=== PATIENT | female | born 1990 ===

== ENCOUNTER 2020-07-02 18:45 | Outpatient (REF) | payer OTHER, SELFPAY ==
[2020-07-02 18:53] LABS: Glucose Urine UA NEG (NEG); Leukocyte Esterase Urine NEG (NEG); Nitrite Urine NEG (NEG); PH 5.5 (5.0-8.0); Specific Gravity - Urine <= 1.005 (1.005-1.025); Urine Blood 1+ (NEG); Urine Ketones NEG (NEG); Urine Protein NEG (NEG-TRACE)
[2020-07-02 18:57] LABS: Appearance Urine CLEAR; Color Urine YELLOW
[2020-07-02 19:08] LABS: Squamous Epithelial Cell Urine TRACE /LPF; WBC Urine 0-2 /HPF (0-4)
== END 2020-07-02 18:46 | disposition home or self-care (01) ==
LOC: HO.LNP 18:45
PROVIDERS: Visit Provider Internal Medicine
DX: R30.0 Dysuria (principal)
CPT/HCPCS: 81001

== ENCOUNTER 2021-05-31 15:00 | Outpatient (RCR) | payer OTHER, SELFPAY ==
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
--- NOTE | 2021-06-21 14:47 | MHC.PT.DC ---
[facility] [place] Office [place] Office [place] Office [address] Judah Garcia [address] [phone] F: [phone] F: [phone] F: [phone] F: [phone] Physical Therapy Discharge Report Diagnosis: L shoulder, knee and hip. Date of Surgery: Date of Evaluation: 04/23/21 Date of Discharge: 06/21/21 Treatments to Date: 6 Cancellations to Date: No Shows to Date: Discharge Status: Achieved Goals Improved Function Independent with HEP Discharge Summary: Patient called and self DC'd, feeling well and ready for DC. Pt denied any more pain. She had no pain at the last tx session prior to session or at the end. Able to complete some progressed scap stab exercises with no increase in discomfort. Pt has met goals, has HEP and is ready for DC. Electronically signed by: Brielle Woo PT Please sign and return to therapist. Thank you for your referral.
== END 2021-06-21 14:47 | disposition home or self-care (01) ==
LOC: HO.PTCHIC 15:00
PROVIDERS: PCP Internal Medicine; Visit Provider Nurse Practitioner Family
DX: M25.562 Pain in left knee (principal); M25.552 Pain in left hip; M25.551 Pain in right hip
CPT/HCPCS: 97110; 97161

== ENCOUNTER 2021-06-13 11:55 | Outpatient (REF) | payer OTHER, SELFPAY ==
[2021-06-13 13:16] LABS: Leukocytes Stool Qualitative NEGATIVE (NEGATIVE)
== END 2021-06-13 11:56 | disposition home or self-care (01) ==
LOC: HO.LNP 11:55
PROVIDERS: Visit Provider Internal Medicine
DX: R19.7 Diarrhea, unspecified (principal)
CPT/HCPCS: 87045; 87046; 87329; 87338; 89055

== ENCOUNTER 2022-02-08 08:44 | Outpatient (REF) | payer OTHER, SELFPAY ==
[2022-02-08 08:58] LABS: MANUAL DIFF FLAG NO
[2022-02-08 09:15] LABS: Basophils Percent Auto 0.4 % (0-2); Eosinophils Absolute Auto 0.1 X10*3/uL (0.0-0.4); Eosinophils Percent Auto 0.7 % (0-4); Hematocrit 40.9 % (37.0-47.0); Hemoglobin 12.8 g/dl (12.0-16.0); Imm Gran Abs Auto 0.01 X10*3/uL (0.00-0.03); Imm Gran Pct Auto 0.1 % (0.0-0.4); Lymphocytes Absolute Auto 1.8 X10*3/uL (1.2-4.9); Lymphocytes Percent Auto 26.1 % (20-40); Mean Corpuscular HGB Conc 31.3 g/dl (31.0-35.0); Mean Corpuscular Volume 73.4 fL (80.0-98.0); Mean Platelet Volume 9.3 fL (9.4-12.3); Monocytes Absolute Auto 0.4 X10*3/uL (0.1-1.2); Monocytes Percent Auto 5.7 % (2-11); Neutrophils Absolute Auto 4.6 x10*3/uL (2.0-8.3); Platelet Count 435 X10*3/uL (160-400); Red Blood Count 5.57 X10*6/uL (4.20-5.50); White Blood Count 6.9 X10*3/uL (4.8-10.8)
[2022-02-08 09:44] LABS: Alanine Aminotransferase 7 U/L (0-31); Albumin Level 3.8 g/dL (3.5-5.0); Alkaline Phosphatase 63 U/L (39-117); Anion Gap 14 (12-20); Aspartate Amino Transferase 10 U/L (5-31); Bilirubin Total 0.3 mg/dL (0.0-1.0); Blood Urea Nitrogen 7 mg/dL (9-16); Calcium 9.1 mg/dL (8.4-10.2); Carbon Dioxide 26 mmol/L (22-29); Chloride 103 mmol/L (96-108); Cholesterol 218 mg/dL; Estimated Glomerular Filt Rate > 60; Glucose Fasting 95 mg/dL (60-99); HDL Cholesterol 57 mg/dL; LDL Cholesterol Calculated 129 mg/dl; Potassium 4.5 mmol/L (3.3-5.1); Sodium 138 mmol/L (135-145); Total Protein 6.9 g/dL (6.5-8.0); Triglycerides 162 mg/dL
[2022-02-08 10:08] LABS: Vitamin D 25-OH Total 21.8 ng/mL (>30)
== END 2022-02-08 08:45 | disposition home or self-care (01) ==
LOC: HO.LAB 08:44
PROVIDERS: PCP Internal Medicine; Visit Provider Internal Medicine
DX: Z00.00 Encounter for general adult medical examination without abnormal findings (principal); E55.9 Vitamin D deficiency, unspecified; E66.01 Morbid (severe) obesity due to excess calories; D64.9 Anemia, unspecified
CPT/HCPCS: 36415; 80053; 80061; 82306; 84443; 85025

== ENCOUNTER 2023-02-09 16:03 | Outpatient (AMB) | payer OTHER, SELFPAY ==
[2023-02-09 16:05] VITALS: BP 156/100; BMI 43.4
--- NOTE | 2023-02-09 16:05 | A.OFFPC_ITS ---
Vital Signs 02/09/23 16:05 02/09/23 16:18 Height 5 ft Weight 222 lb BMI 43.4 BP 156/100 H 150/100 H Blood Pressure Location Lt brachial Lt brachial Position Sitting Sitting Intake Visit Reasons: annual exam Intake Note: Patient here for an annual physical exam Deployment Engineer Required: No Accompanied by: Self / Same As Patient Allergies shrimp Allergy (Intermediate, Uncoded 02/09/23 16:19) itch, throat closing Medication List - Last Reconciled 02/09/23 by Coni Griffiths MD sertraline 25 mg PO DAILY 90 days Tobacco use date assessed: 02/09/23 Dental Screening Dental Screen Date: 02/09/23 Did you have a dental visit in the last 12 months?: Yes Did you have a dental problem in the last 6 months where you did not have access to dental care?: No Was dental information given to patient?: Patient has dentist HPI HPI Comments History of Present Illness Details This is a 32-year-old female that comes for her physical exam. Last Pap smear was 2021 was negative. She is 10 weeks . Blood pressure elevated that will be recheck in 3 weeks. Will see OBGYN tomorrow to check blood pressure. [facility] Medical History (Updated 02/04/22 @ 15:29 by Coni Griffiths MD) Acute diarrhea Depression Dysuria Morbid obesity Surgical History H/O laparoscopy Hx of breast reduction, elective Family History Mother Fibromyalgia Pure hypercholesterolemia Father Substance use disorder Mental health disorder Social History Housing: House Alcohol intake: current Alcohol intake frequency: holidays/special occasions only Alcohol type: wine Patient Tobacco Use Status: Never used Tobacco e-Cigarette/Vaping Use: Never Used Second Hand Smoke Exposure: No service: No Current occupational status: unemployed Current occupation: [employer] Cognitive needs: No Hearing needs: No Vision needs: No Questionnaire PHQ-9 Over the last 2 weeks, how often have you been bothered by any of the following problems? 1. Little interest or pleasure in doing things: more than half the days 2. Feeling down, depressed, or hopeless: more than half the days 3. Trouble falling or staying asleep, or sleeping too much: not at all 4. Feeling tired or having little energy: nearly every day 5. Poor appetite or overeating: not at all 6. Feeling bad about yourself - or that you are a failure or have let yourself or your family down: more than half the days 7. Trouble concentrating on things, such as reading the newspaper or watching television: not at all 8. Moving or speaking so slowly that other people could have noticed. Or the opposite - being so fidgety or restless that you have been moving around a lot more than usual: not at all 9. Thoughts that you would be better off or of hurting yourself in some way: not at all Total score: 9 Depression Screening Interpretation: Positive Depression Screening Follow-up: Existing condition 05859 - PHQ-9 Billing: Yes Source: Developed by Drs. Nguyễn Garcia, Tesha Cedillo, Jamal Sotelo and colleagues, with an educational timothy from [employer]. Thrive Questionnaire Date Thrive assessed: 02/04/22 AUDIT C Alcohol Use Questionnaire (AUDIT-C) 1. How often do you have a drink containing alcohol?: Never Total Score: 0 AGUEDA-7 AMB Questionnaire AGUEDA-7 Date AGUEDA - 7 assessed: 02/09/23 Feeling nervous, anxious, or on edge: 1 = Several days Not being able to stop or control worryin = Several days Worrying too much about different things: 2 = More than half the days Trouble relaxin = Nearly every day Being so restless that it is hard to sit still: 0 = Not at all Becoming easily annoyed or irritable: 2 = More than half the days Feeling afraid as if something awful might happen: 0 = Not at all Total AGUEDA-7 score (0-4 normal; 5-9 mild; 10-14 moderate; 15-21 severe): 9 Source: Developed by Drs. Nguyễn Garcia, Tesha Cedillo, Jamal Sotelo and colleagues, with an educational timothy from [employer]. AGUEDA-7 Assessment Billing AGUEDA-7 Assessment Tool: AGUEDA-7 Assessment 66580 Review of Systems Const All systems reviewed & are unremarkable except as noted in HPI and below Eyes Reports no additional complaints, Denies change in vision and Denies other visual disturbances Card Denies chest pain at rest, Denies chest pain with activity, Denies edema, Denies irregular heart rhythm, Denies claudication, Denies dyspnea, Denies dyspnea on exertion, Denies orthopnea, Denies paroxysmal nocturnal dyspnea and Denies slow heart rate Resp Denies cough, Denies dyspnea and Denies dyspnea on exertion GI Denies abdominal pain, Denies change in bowel habits, Denies excessive flatus, Denies nausea and Denies vomiting Denies urinary incontinence, Denies urinary hesitancy and Denies urinary urgency Musc Denies abnormal gait, Denies atrophy, Denies deformity and Denies limited range of motion Skin/Breast Denies bleeding lesions, Denies changing lesions and Denies rash Neuro Denies abnormal gait and Denies lack of coordination Physical exam (Primary Care) Vital Signs: Last Vital Signs BP 156/100 H 02/09/23 16:05 BMI result Body Mass Index 43.4 Tobacco/Smoking Status: Tobacco use Status Tobacco use date assessed 02/09/23 02/09/23 16:14 Patient Tobacco Use Status Never used Tobacco 02/09/23 16:14 Tobacco use type 01/24/21 17:27 e-Cigarette/Vaping Use Never Used 02/09/23 16:14 PHQ-9: PHQ-9 Score PHQ-9: Total score 9 02/09/23 16:14 Depression Screening Interpretation: Positive Depression Screening Follow-up: Existing condition Thrive Assessment: Date of Thrive Assessment Date Thrive assessed 02/04/22 02/09/23 16:14 Const Orientation/consciousness: patient oriented x3 [facility] Head: Yes normal to inspection, Yes normocephalic and Yes atraumatic Ears: external ears normal Eyes General: appearance normal, both eyes and all related structures Eyelids: Yes eyelids normal Conjunctivae: conjunctivae normal Neck Neck: Yes normal visual inspection and Yes supple Resp Effort & Inspection: normal respiratory effort Auscultation: clear to auscultation bilaterally Cardio Jugular venous distension: no JVD Rate: regular rate Rhythm: regular rhythm Heart sounds: S1 normal heart sound present and S2 normal heart sound present GI Inspection: Yes normal to inspection Palpation (GI): Soft to palpation and nontender Auscultation: normal bowel sounds Skin General skin exam: no rashes or lesions noted Neuro General: patient oriented x3 and no focal motor deficits Extrem General: Yes full ROM Psych Appearance: grossly normal Assessment and Plan Assessment & Plan (1) Encounter for physical examination: Code(s): Z00.00 - Encounter for general adult medical examination without abnormal findings Plan: Repeat in a year Coding Level of Care Code Est Pt Prev Care 18-39y(87206) Diagnoses Encounter for physical examination Z00.00 Additional Codes AGUEDA-7 Assessment Billing - AGUEDA-7 Assessment Tool: AGUEDA-7 Assessment 87131 ([id number]) Time Spent (min) 31
[2023-02-09 16:18] VITALS: BP 150/100
== END 2023-02-09 16:26 | disposition home or self-care (01) ==
PROVIDERS: PCP Internal Medicine; Visit Provider Internal Medicine
DX: Z00.00 Encounter for general adult medical examination without abnormal findings (principal)
CPT/HCPCS: 99395

== ENCOUNTER 2023-10-05 17:14 | Outpatient (AMB) | payer OTHER, SELFPAY ==
[2023-10-05 17:21] VITALS: BP 160/98; PULSE 76; O2SAT 98; BMI 42.1
--- NOTE | 2023-10-05 17:21 | A.OFFPC_ITS ---
Vital Signs 10/05/23 17:21 Height 5 ft Weight 215 lb 8 oz BMI 42.1 BP 160/98 H Blood Pressure Location Lt brachial Position Sitting Pulse 76 Pulse Source Pulse Oximeter Pulse Oximetry (%) 98 Oxygen Delivery Method Room Air Intake Visit Reasons: Right breast bleeding Intake Note: The patient is here with bleeding and a lump in the right breast for the past tw o days. Additionally, she experienced a term demise. Baby Karine was delivered via [facility] on 08/16/23 and on 08/17/23. 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 Required: No River Rafting Guide: Present (Naima Lim CMA) Accompanied by: Self / Same As Patient Allergies shrimp Allergy (Intermediate, Uncoded 10/05/23 17:39) itch, throat closing Medication List - Last Reconciled 10/05/23 by Coni Griffiths MD nifedipine ER 60 mg PO DAILY sertraline 150 mg PO DAILY Tobacco use date assessed: 10/05/23 Dental Screening Dental Screen Date: 02/09/23 HPI HPI Comments History of Present Illness Details This is a 33-year-old female with mild major depression, hypertension, and morbid obesity that comes today due to right breast lump at 06:00 o'clock that she noted few weeks ago associated with right blood in nipple discharge. She had a code white 08/16/2023 and baby in 08/17/2023. Since then she has had milky discharge but 2 weeks ago she noticed that it was bloody discharge from right breast. Depression has aggravated due to grieving and OBGYN increase sertraline to 150 mg once a day about 2 weeks ago. Her blood pressure is still elevated and nifedipine was decreased 2 weeks ago from 90 mg to 60 mg. Blood pressure still elevated therefore I will increase it back again to 90 mg. Blood pressure will be recheck in 3 weeks by nurse navigator. She is morbidly obese with a BMI of 42.1 and should diet and exercise to reach BMI goal less than 30. [facility] Medical History (Updated 10/05/23 @ 18:24 by Coni Griffiths MD) Acute diarrhea Morbid obesity Dysuria Depression Surgical History Hx of breast reduction, elective H/O laparoscopy Family History Mother Fibromyalgia Pure hypercholesterolemia Father Substance use disorder Mental health disorder Social History Housing: House Alcohol intake: current Alcohol intake frequency: holidays/special occasions only Alcohol type: wine Patient Tobacco Use Status: Never used Tobacco e-Cigarette/Vaping Use: Never Used Second Hand Smoke Exposure: No service: No Current occupational status: unemployed Current occupation: [employer] Cognitive needs: No Hearing needs: No Vision needs: No Questionnaire PHQ-9 Over the last 2 weeks, how often have you been bothered by any of the following problems? 1. Little interest or pleasure in doing things: more than half the days 2. Feeling down, depressed, or hopeless: several days 3. Trouble falling or staying asleep, or sleeping too much: nearly every day 4. Feeling tired or having little energy: more than half the days 5. Poor appetite or overeating: more than half the days 6. Feeling bad about yourself - or that you are a failure or have let yourself or your family down: more than half the days 7. Trouble concentrating on things, such as reading the newspaper or watching television: more than half the days 8. Moving or speaking so slowly that other people could have noticed. Or the opposite - being so fidgety or restless that you have been moving around a lot more than usual: not at all 9. Thoughts that you would be better off or of hurting yourself in some way: not at all Total score: 14 Depression Screening Interpretation: Positive Depression Screening Follow-up: Existing condition, In treatment and Community Mental Health Worker F/U Depression Screening Done: Yes 68138 - PHQ-9 Billing: Yes Source: Developed by Drs. Nguyễn Garcia, Tesha Cedillo, Jamal Sotelo and colleagues, with an educational timothy from [employer]. Thrive Questionnaire Date Thrive assessed: 10/05/23 I am a: Patient What is your living situation today?: I have a steady place to live Within the past 12 months, did the food you bought not last and you didn't have the money to get more?: Never true Within the past 12 months, did you worry whether your food would run out before you got money to buy more?: Never true Do you have trouble paying for medicines?: No Do you have trouble getting transportation to medical appointments?: No Do you have trouble paying your heating and electricity bill?: No Do you have trouble taking care of your child, family member or friend?: No Do you have trouble with day-to-day activities such as bathing, preparing meals, shopping, managing finances, etc.?: No Are you currently unemployed and looking for a job?: No Are you interested in more education?: No Please select the resources that you would like help with: None Currently or been in a relationship where the following occur: no concerns reported THRIVE Score: 0 AUDIT C Alcohol Use Questionnaire (AUDIT-C) 1. How often do you have a drink containing alcohol?: Never 3. How often do you have six or more drinks on one occasion?: Never Total Score: 0 AGUEDA-7 AMB Questionnaire AGUEDA-7 Date AGUEDA - 7 assessed: 10/05/23 Feeling nervous, anxious, or on edge: 1 = Several days Not being able to stop or control worryin = Several days Worrying too much about different things: 2 = More than half the days Trouble relaxin = More than half the days Being so restless that it is hard to sit still: 0 = Not at all Becoming easily annoyed or irritable: 3 = Nearly every day Feeling afraid as if something awful might happen: 2 = More than half the days Total AGUEDA-7 score (0-4 normal; 5-9 mild; 10-14 moderate; 15-21 severe): 11 Source: Developed by Drs. Nguyễn Garcia, Tesha Cedillo, Jamal Sotelo and colleagues, with an educational timothy from [employer]. AGUEDA-7 Assessment Billing AGUEDA-7 Assessment Tool: AGUEDA-7 Assessment 48047 Review of Systems Const All systems reviewed & are unremarkable except as noted in HPI and below Eyes Reports no additional complaints, Denies change in vision and Denies other visual disturbances Card Denies chest pain at rest, Denies chest pain with activity, Denies edema, Denies irregular heart rhythm, Denies claudication, Denies dyspnea, Denies dyspnea on exertion, Denies orthopnea, Denies paroxysmal nocturnal dyspnea and Denies slow heart rate Resp Denies cough, Denies dyspnea and Denies dyspnea on exertion Reports nipple discharge (bloody) Skin/Breast Reports breast mass and Reports nipple discharge (bloody) Psych Reports abnormal sleep pattern and Reports depression Physical exam (Primary Care) Vital Signs: Last Vital Signs Pulse 76 10/05/23 17:21 BP 160/98 H 10/05/23 17:21 Pulse Ox 98 10/05/23 17:21 Oxygen Delivery Method Room Air 10/05/23 17:21 BMI result Body Mass Index 42.1 Tobacco/Smoking Status: Tobacco use Status Tobacco use date assessed 10/05/23 10/05/23 17:35 Patient Tobacco Use Status Never used Tobacco 10/05/23 17:35 Tobacco use type 01/24/21 17:27 e-Cigarette/Vaping Use Never Used 10/05/23 17:35 PHQ-9: PHQ-9 Score PHQ-9: Total score 14 10/05/23 17:41 Depression Screening Interpretation: Positive Depression Screening Follow-up: Existing condition, In treatment and Community Mental Health Worker F/U Thrive Assessment: Date of Thrive Assessment Date Thrive assessed 10/05/23 10/05/23 17:35 Currently or been in a relationship where the following occur: no concerns reported Chest Breast/axilla inspection: normal inspection of the breasts and normal inspection of the axillae Breast/axilla palpation: normal palpation of the axillae and abnormal palpation of the breast (right breast lump at 6 o'clock, right bloody nipple discharge) Resp Effort & Inspection: normal respiratory effort Auscultation: clear to auscultation bilaterally Cardio Jugular venous distension: no JVD Rate: regular rate Rhythm: regular rhythm Heart sounds: S1 normal heart sound present and S2 normal heart sound present Extrem General: Yes full ROM Psych Affect: Sad affect present Assessment and Plan Assessment & Plan (1) Breast lump on right side at 6 o'clock position: Code(s): N63.15 - Unspecified lump in the right breast, overlapping quadrants Plan: Diagnostic mammogram order an ultrasound of the breast ordered. (2) Morbid obesity: Code(s): E66.01 - Morbid (severe) obesity due to excess calories Plan: Start diet and exercise. BMI goal is less than 30. (3) Mild major depression: Code(s): F32.0 - Major depressive disorder, single episode, mild Plan: Continue sertraline 150 mg once a day. Continue counseling. (4) Essential hypertension: Code(s): I10 - Essential (primary) hypertension Plan: Increase nifedipine to 90 mg once a day. Recheck blood pressure in 3 weeks by nurse navigator. Blood pressure goal is equal or less than 130/80. Orders: Orders Lipid Panel 5 Months E78.5 - Hyperlipidemia, unspecified MM diagnostic mammo BI Today N63.15 - Unspecified lump in the right breast, overlapping quadrants US breast RT complete Today N63.15 - Unspecified lump in the right breast, overlapping quadrants Comprehensive [place]. Panel Fast 5 Months E66.01 - Morbid (severe) obesity due to excess calories Complete Blood Count Auto Diff 5 Months E66.01 - Morbid (severe) obesity due to excess calories Medications: New nifedipine ER 90 mg PO DAILY 90 tabs 1RF 90 days Coding Level of Care Code Est Pt Level 4 (90324) Diagnoses Breast lump on right side at 6 o'clock position N63.15 Morbid obesity E66.01 Mild major depression F32.0 Essential hypertension I10 Additional Codes AGUEDA-7 Assessment Billing - AGUEDA-7 Assessment Tool: AGUEDA-7 Assessment 42088 ([id number]) Time Spent (min) 25
== END 2023-10-05 17:56 | disposition home or self-care (01) ==
PROVIDERS: PCP Internal Medicine; Visit Provider Internal Medicine
DX: N63.15 Unspecified lump in the right breast, overlapping quadrants (principal); E66.01 Morbid (severe) obesity due to excess calories; Z68.41 Body mass index [BMI] 40.0-44.9, adult; F32.0 Major depressive disorder, single episode, mild
CPT/HCPCS: 99214

== ENCOUNTER 2023-10-12 09:00 | Outpatient (REF) | payer OTHER, SELFPAY ==
--- NOTE | ~2023-10-12 | US_ITS ---
EXAMINATION: MM DIAGNOSTIC DIGITAL BREAST TOMOSYNTHESIS, BILATERAL US BREAST LIMITED, RIGHT MAMMOGRAPHY: CLINICAL INFORMATION: The patient is 33 years of age. The patient reports peripartum spontaneous right bloody nipple discharge since July 2023. The patient delivered a baby in August 2023 which subsequently . The patient has not breast fed. The patient reports a spontaneous bloody nipple discharge from the right to continue. COMPARISON: Mammography: This is a baseline mammogram. TECHNIQUE: Digital breast tomosynthesis is performed in both the craniocaudal and mediolateral oblique views along with computer-aided detection (CAD). Synthesized 2D images are generated from the tomosynthesis. A full lateral view of the right breast, CC and lateral magnification imaging of the right breast and CC and MLO spot compression of the right breast are obtained. FINDINGS: There are scattered areas of fibroglandular density (ACR BI-RADS breast composition Category b). There is a well-circumscribed, oval mass at the lower inner quadrant of the right breast. There are no suspicious findings in the subareolar region of the right breast. There are no other findings of the right breast. In the left breast, there are no significant masses, abnormal calcifications, or other abnormalities. ULTRASOUND: CLINICAL INFORMATION: Spontaneous peripartum right bloody nipple discharge since July 2023. COMPARISON: None TECHNIQUE: Targeted sonographic evaluation was performed using a high frequency linear transducer. Selected archived documentation. FINDINGS: RIGHT BREAST: There are no abnormalities of the subareolar region of the right breast by sonography. The mammographic mass corresponds to an oval hypoechoic mass in the 5:00 region of the right breast 4 cm from the nipple. This structure measures 33 mm x 29 mm by 13 mm. The long axis of this mass is parallel to the long axis of the chest wall. There is no through transmission. There is some internal vascularity, more pronounced than one would expect for a fibroadenoma. This structure is indeterminate and ultrasound-guided biopsy is indicated. US/US breast RT limited mamm only IMPRESSION: Ultrasound-guided biopsy is advised for 33 mm hypoechoic mass in the 5:00 region of the right breast 4 cm from the nipple. This structure on the mammogram may not be related to the patient's bloody nipple discharge. The bloody nipple discharge requires additional evaluation. After the biopsy results from the mass in the 5:00 region of the right breast are known, the patient should have a bilateral contrast-enhanced breast MRI. She should also have a formal evaluation by a breast surgeon given the history of bloody nipple discharge. Please note that even if the hypoechoic mass yields benign histology, the MRI and surgical evaluation indicated because of the patient's history. OVERALL ASSESSMENT: Mammography: BI-RADS 4 - Suspicious finding Ultrasound: BI-RADS 4 - Suspicious finding RECOMMENDATION: Biopsy recommended Surgical evaluation is also recommended. MRI with Gadolinium is also recommended. Results were provided to the patient at time of visit by the technologist. This patient's information was entered into a reminder system with a target due date for their next mammogram.
== END 2023-10-12 09:01 | disposition home or self-care (01) ==
LOC: HO.MAMMO 09:00
PROVIDERS: PCP Internal Medicine; Visit Provider Internal Medicine
DX: N63.15 Unspecified lump in the right breast, overlapping quadrants (principal)
CPT/HCPCS: 76642; 77062; 77066

== ENCOUNTER → 2023-10-12 09:30 | Outpatient (BNV) | payer OTHER, SELFPAY | PROVIDERS: PCP Internal Medicine; Visit Provider Radiology Diagnostic Radiology | DX: N64.52 Nipple discharge (principal) | CPT/HCPCS: 76642; 77062; 77066 ==

== ENCOUNTER 2023-10-13 08:32 | Outpatient (AMB) | payer OTHER, SELFPAY ==
--- NOTE | 2023-10-13 08:36 | MHC.OFFVIS ---
Vital Signs 10/13/23 08:44 Height 5 ft Weight 217 lb BMI 42.4 BP 144/76 H Blood Pressure Location Lt brachial Position Sitting Pulse 66 Intake Visit Reasons: us guided bx 5:00 mass, bloody drainage Intake Note: Patient is seen in office for ultrasound guided biopsy consult, 5 0'clock mass with bloody drainage. Pt c/o: feel a lump on the right breast since 08/08, no increase or pain, at the time had bloody discharge, when squeezing still gets discharge, had breast reduction in the past with no complications, yes to breast feeding with no complications, no fm hx of cancer mm & us:10/12/23 Inspector Casing Required: No Accompanied by: Spouse Allergies shrimp Allergy (Intermediate, Uncoded 10/13/23 08:43) itch, throat closing Medication List - Last Reconciled 10/13/23 by Danilo Carter MD sertraline 150 mg PO DAILY HPI Comments Details: 33-year-old female patient presenting with a recent abnormal mammogram and ultrasound of the right breast. She is peripartum and recently lost her baby. She subsequently developed bloody discharge from the right nipple. Further workup with mammogram and ultrasound revealed a density in the right breast for which ultrasound-guided core biopsy was recommended. Also recommended was evaluation by breast surgery and a follow-up breast MRI. She reports a prior history of bilateral breast reduction surgery which she tolerated well. She denies a previous history of breast cancer in her family history is negative for breast cancer as well. She does feel a lump in the 5 o'clock position felt best when sitting up. She did have some bloody discharge after the of her last baby however this subsequently stopped but now over the past week as she has had some milky discharge from the right breast. She is scheduled for an ultrasound-guided core biopsy at the [facility] with a right breast lesion on 10/14/2023. [facility] Medical History Acute diarrhea Morbid obesity Dysuria Depression Surgical History Hx of section Hx of breast reduction, elective H/O laparoscopy Family History Mother Fibromyalgia Pure hypercholesterolemia Father Substance use disorder Mental health disorder Social History Housing: House Alcohol intake: current Alcohol intake frequency: holidays/special occasions only Alcohol type: wine Patient Tobacco Use Status: Never used Tobacco e-Cigarette/Vaping Use: Never Used Second Hand Smoke Exposure: No service: No Current occupational status: unemployed 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 Cognitive needs: No Hearing needs: No Vision needs: No Female Reproductive History Menstrual Age of Menarche: 13 Date of last menstrual period: 08/19/23 Total pregnancies: 2 Number of Living Children: 1 Ab spontaneous: 1 Date of Mammogram: 10/12/23 Review of Systems Const All systems reviewed & are unremarkable except as noted in HPI and below Denies chills, Denies fever(s), Denies headache(s), Denies poor appetite and Denies weakness ENT Denies headache(s) Card Denies chest pain, Denies irregular heart rhythm, Denies palpitations and Denies dyspnea Resp Denies cough, Denies excessive phlegm production and Denies dyspnea GI Denies abdominal pain, Denies bloating, Denies change in bowel habits, Denies constipation, Denies heartburn, Denies diarrhea, Denies nausea and Denies vomiting Denies urinary frequency Musc Denies back pain, Denies muscle weakness and Denies numbness Skin/Breast Denies changing lesions and Denies unusual bruising Neuro Denies headache(s), Denies numbness, Denies paresthesias and Denies weakness Psych Denies anxiety and Denies depression Endo Denies palpitations Hermilo/Lymph Denies lymphadenopathy Physical Exam Const General: cooperative and no acute distress Nutritional Appearance: well nourished Orientation/consciousness: patient oriented x3 Limitations: no limitations HEENT Head: Yes normocephalic and Yes atraumatic Ears: hearing grossly normal bilaterally Chest Other: Left breast: No skin change, no nipple retraction, no nipple discharge, no palpable mass, no enlarged lymph nodes. Right breast: No skin change, no nipple retraction, no nipple discharge, palpable smooth mobile mass noted in the 5 o'clock position just lateral to her reduction mammoplasty incision. No enlarged lymph nodes Chest/axillae images: 1. Palpable mass right breast 5 o'clock position Resp Effort & Inspection: normal respiratory effort, no audible wheezes, no cough and no respiratory distress Cardio Jugular venous distension: no JVD GI Inspection: Yes normal to inspection Skin Other: Warm, dry, no rash Neuro General: patient oriented x3 Extrem General: Yes no clubbing, cyanosis or edema Results Reviewed Results Reviewed: Ultrasound of breast: Assessment & Plan Assessment & Plan (1) Abnormal ultrasound of breast: Comment: Right breast 05:00 o'clock location by mammogram and ultrasound Code(s): R92.8 - Other abnormal and inconclusive findings on diagnostic imaging of breast Category: Medical Plan 33-year-old female patient presenting with a palpable mass in the right breast at the 5 o'clock position confirmed on mammogram and ultrasound. On examination the patient has a smooth, mobile density which does appear consistent with a fibroadenoma. She is scheduled for an ultrasound-guided core biopsy on 10/14/2023. I recommended she return in approximately 1 week to review the pathology results and discuss treatment options as necessary. We will also request a breast MRI at that time. Patient expressed understanding and agrees with the plan. Orders: Orders US breast ndl core biopsy RT Today R92.8 - Other abnormal and inconclusive findings on diagnostic imaging of breast Coding Level of Care Code New Pt Level 4 (44888) Diagnoses Abnormal ultrasound of breast R92.8
[2023-10-13 08:44] VITALS: BP 144/76; PULSE 66; BMI 42.4
== END 2023-10-13 08:57 | disposition home or self-care (01) ==
PROVIDERS: PCP Internal Medicine; Visit Provider Surgery
DX: R92.8 Other abnormal and inconclusive findings on diagnostic imaging of breast (principal)
CPT/HCPCS: 99204

== ENCOUNTER → 2023-10-13 08:32 | Outpatient (BNVA) | payer OTHER, SELFPAY | PROVIDERS: PCP Internal Medicine; Visit Provider Surgery | DX: N63.13 Unspecified lump in the right breast, lower outer quadrant (principal); R92.8 Other abnormal and inconclusive findings on diagnostic imaging of breast | CPT/HCPCS: 99202 ==

== ENCOUNTER → 2023-10-14 10:00 | Outpatient (BNV) | payer OTHER, SELFPAY | PROVIDERS: PCP Internal Medicine; Visit Provider Radiology Diagnostic Radiology | DX: R92.8 Other abnormal and inconclusive findings on diagnostic imaging of breast (principal) | CPT/HCPCS: 19083 ==

== ENCOUNTER 2023-10-14 10:10 | Outpatient (REF) | payer OTHER, SELFPAY ==
--- NOTE | ~2023-10-14 | US_ITS ---
PROCEDURE: US GUIDED BREAST BIOPSY, RIGHT CLINICAL INFORMATION: Right breast mass 5:00 axis,? Fibroadenoma. COMPARISON: 10/12/2023 PROCEDURAL DETAILS: The details of the procedure, as well as the risks, benefits, and alternatives to the procedure were explained to the patient in detail and all of her questions were answered, after which written informed consent was obtained. Site and side were confirmed. Prior to the procedure, sonography revealed a hypoechoic oval circumscribed mass measuring 2.9 x 1.3 x 3.4 cm. A time-out was performed, the lesion intended for biopsy was targeted, and the skin of the overlying right breast was then marked, prepped and draped in the usual sterile fashion. Using sonographic guidance, sterile technique, and 1% lidocaine without epinephrine for local anesthesia, multiple core biopsies were obtained through the targeted area with a 14G spring loaded [employer] core biopsy device. There was real-time confirmation of appropriate needle passage. Sampling was documented. At the completion of tissue sampling, a single open coil-shaped metallic clip was deposited at the biopsy site. There was no evidence of immediate complication. SPECIMEN: 3 well formed core samples were obtained DIGITAL POST-PROCEDURE MAMMOGRAPHY: Not performed. The patient tolerated the procedure well and, after assuring adequate hemostasis, was discharged in good condition after reviewing postbiopsy breast care instructions. Final pathology results are pending. US/US breast ndl core biopsy RT IMPRESSION: 1. No immediate complication from ultrasound-guided percutaneous biopsy right breast mass 5:00 axis. 2. Ultrasound was used to localize and guide marker clip placement. 3. Postprocedure mammography was not performed. The marker appears in good position on sonography. 4. Final pathology results are pending. A separate report with final recommendations will be issued once these results are made available.
[2023-10-14] MEDS: Lidocaine HCl 1 % 20 ML VIAL 9 ML SUBCUT (11:08)
[2023-10-14] MEDS: Sodium Bicarbonate 8.4% 50 MEQ/50 ML VIAL SUBCUT (11:09)
== END 2023-10-14 10:11 | disposition home or self-care (01) ==
LOC: HO.MAMMO 10:10
PROVIDERS: PCP Internal Medicine; Visit Provider Surgery
DX: R92.8 Other abnormal and inconclusive findings on diagnostic imaging of breast (principal)
CPT/HCPCS: 19083; 88305

== ENCOUNTER 2023-10-22 10:03 | Outpatient (AMB) | payer OTHER, SELFPAY ==
--- NOTE | 2023-10-22 10:09 | A.OFFVIS_ITS ---
Vital Signs 10/22/23 10:16 Height 5 ft Weight 220 lb BMI 43.0 BP 161/102 H Blood Pressure Location Lt brachial Position Sitting Pulse 73 Intake Visit Reasons: s/p us guided bx 5:00 mass, bloody drainage Intake Note: Patient is seen in office for ultrasound guided biopsy results, 5 o'clock mass with bloody drainage. Pt c/o: denies any concerns, here for results Patient Care Representative Required: No Accompanied by: Self / Same As Patient Allergies shrimp Allergy (Intermediate, Uncoded 10/22/23 10:16) itch, throat closing Medication List - Last Reconciled 10/22/23 by Danilo Carter MD sertraline 150 mg PO DAILY HPI Comments Details: 33-year-old female patient presenting with a recent abnormal mammogram and ultrasound of the right breast. She is peripartum and recently lost her baby. She subsequently developed bloody discharge from the right nipple. Further workup with mammogram and ultrasound revealed a density in the right breast for which ultrasound-guided core biopsy was recommended. A follow-up breast MRI was recommended. She reports a prior history of bilateral breast reduction surgery which she tolerated well. She denies a previous history of breast cancer in her family history is negative for breast cancer as well. She does feel a lump in the 5 o'clock position felt best when sitting up. She did have some bloody discharge after the of her last baby however this subsequently stopped but now over the past week as she has had some milky discharge from the right breast. She underwent ultrasound-guided core biopsy at the [facility] on 10/14/2023. Pathology revealed benign breast tissue with fibroadenomatous change, focal adenosis and pseudoangiomatous stromal hyperplasia; no atypia or malignancy identified. She tolerated the biopsy well and denies any ongoing breast symptoms. She still occasionally will have some discharge from the nipple. [facility] Medical History Acute diarrhea Morbid obesity Dysuria Depression Surgical History Hx of section Hx of breast reduction, elective H/O laparoscopy Family History Mother Fibromyalgia Pure hypercholesterolemia Father Substance use disorder Mental health disorder Social History Housing: House Alcohol intake: current Alcohol intake frequency: holidays/special occasions only Alcohol type: wine Patient Tobacco Use Status: Never used Tobacco e-Cigarette/Vaping Use: Never Used Second Hand Smoke Exposure: No service: No Current occupational status: unemployed Current occupation: [employer] Cognitive needs: No Hearing needs: No Vision needs: No Female Reproductive History Menstrual Age of Menarche: 13 Review of Systems Const All systems reviewed & are unremarkable except as noted in HPI and below Denies chills, Denies fever(s), Denies headache(s), Denies poor appetite and Denies weakness ENT Denies headache(s) Card Denies chest pain, Denies irregular heart rhythm, Denies palpitations and Denies dyspnea Resp Denies cough, Denies excessive phlegm production and Denies dyspnea GI Denies abdominal pain, Denies bloating, Denies change in bowel habits, Denies constipation, Denies heartburn, Denies diarrhea, Denies nausea and Denies vomiting Denies urinary frequency Musc Denies back pain, Denies muscle weakness and Denies numbness Skin/Breast Denies changing lesions and Denies unusual bruising Neuro Denies headache(s), Denies numbness, Denies paresthesias and Denies weakness Psych Denies anxiety and Denies depression Endo Denies palpitations Hermilo/Lymph Denies lymphadenopathy Physical Exam Vital Signs: Last Vital Signs Pulse 73 10/22/23 10:16 BP 161/102 H 10/22/23 10:16 BMI result Body Mass Index 43.0 Const General: cooperative and no acute distress Nutritional Appearance: well nourished Orientation/consciousness: patient oriented x3 Limitations: no limitations HEENT Head: Yes normocephalic and Yes atraumatic Ears: hearing grossly normal bilaterally Chest Other: Exam deferred Resp Effort & Inspection: normal respiratory effort, no audible wheezes, no cough and no respiratory distress Cardio Jugular venous distension: no JVD GI Inspection: Yes normal to inspection Skin Other: Warm, dry, no rash Neuro General: patient oriented x3 Extrem General: Yes no clubbing, cyanosis or edema Assessment & Plan Assessment & Plan (1) Abnormal ultrasound of breast: Comment: Right breast 05:00 o'clock location by mammogram and ultrasound Code(s): R92.8 - Other abnormal and inconclusive findings on diagnostic imaging of breast Category: Medical Plan 33-year-old female patient presenting with a palpable mass in the right breast at the 5 o'clock position confirmed on mammogram and ultrasound. On examination the patient has a smooth, mobile density which does appear consistent with a fibroadenoma. She underwent ultrasound-guided core biopsy on 10/14/2023. Pathology confirmed fibroadenoma and PASH. I recommended proceeding with the MRI. She will return following this MRI to review the results and discuss treatment options for both the fibroadenoma and nipple discharge. She expressed understanding and agrees with the plan. Orders: Orders MR breast BI wo/w con Today N63.15 - Unspecified lump in the right breast, overlapping quadrants, N64.52 - Nipple discharge Coding Level of Care Code Est Pt Level 3 (94255) Diagnoses Abnormal ultrasound of breast R92.8
[2023-10-22 10:16] VITALS: BP 161/102; PULSE 73; BMI 43.0
== END 2023-10-22 10:22 | disposition home or self-care (01) ==
PROVIDERS: PCP Internal Medicine; Visit Provider Surgery
DX: R92.8 Other abnormal and inconclusive findings on diagnostic imaging of breast (principal)
CPT/HCPCS: 99213

== ENCOUNTER → 2023-10-22 10:03 | Outpatient (BNVA) | payer OTHER, SELFPAY | PROVIDERS: PCP Internal Medicine; Visit Provider Surgery | DX: R92.8 Other abnormal and inconclusive findings on diagnostic imaging of breast (principal) | CPT/HCPCS: 99212 ==

== ENCOUNTER 2023-10-29 08:54 | Outpatient (REF) | payer OTHER, SELFPAY ==
[2023-10-29 09:10] LABS: MANUAL DIFF FLAG NO
[2023-10-29 09:26] LABS: Basophils Percent Auto 0.3 % (0-2); Eosinophils Absolute Auto 0.1 X10*3/uL (0.0-0.4); Eosinophils Percent Auto 1.4 % (0-4); Hematocrit 38.9 % (37.0-47.0); Hemoglobin 12.1 g/dl (12.0-16.0); Imm Gran Abs Auto 0.03 X10*3/uL (0.00-0.03); Imm Gran Pct Auto 0.3 % (0.0-0.4); Lymphocytes Absolute Auto 2.3 X10*3/uL (1.2-4.9); Lymphocytes Percent Auto 25.5 % (20-40); Mean Corpuscular HGB Conc 31.1 g/dl (31.0-35.0); Mean Corpuscular Hemoglobin 22.7 pg (27.0-33.0); Mean Corpuscular Volume 72.8 fL (80.0-98.0); Mean Platelet Volume 9.2 fL (9.4-12.3); Monocytes Absolute Auto 0.6 X10*3/uL (0.1-1.2); Monocytes Percent Auto 6.8 % (2-11); Neutrophils Absolute Auto 5.8 x10*3/uL (2.0-8.3); Neutrophils Percent Auto 65.7 % (45-73); Platelet Count 567 X10*3/uL (160-400); Red Blood Count 5.34 X10*6/uL (4.20-5.50); Red Cell Distribution Width 17.2 % (11.0-16.0); White Blood Count 8.9 X10*3/uL (4.8-10.8)
[2023-10-29 09:57] LABS: Alanine Aminotransferase 28 U/L (0-31); Alkaline Phosphatase 107 U/L (39-117); Anion Gap 13 (12-20); Aspartate Amino Transferase 19 U/L (5-31); Bilirubin Total 0.2 mg/dL (0.0-1.0); Blood Urea Nitrogen 10 mg/dL (9-16); Calcium 9.4 mg/dL (8.4-10.2); Carbon Dioxide 26 mmol/L (22-29); Chloride 105 mmol/L (96-108); Cholesterol 190 mg/dL (<200); Estimated Glomerular Filt Rate > 60; Glucose Fasting 85 mg/dL (60-99); HDL Cholesterol 46 mg/dL (>40); LDL Cholesterol Calculated 120 mg/dL (<100); Potassium 4.3 mmol/L (3.3-5.1); Sodium 140 mmol/L (135-145); Total Protein 7.1 g/dL (6.5-8.0); Triglycerides 123 mg/dL (<150)
== END 2023-10-29 08:55 | disposition home or self-care (01) ==
LOC: HO.LAB 08:54
PROVIDERS: PCP Internal Medicine; Visit Provider Internal Medicine
DX: E66.01 Morbid (severe) obesity due to excess calories (principal); E78.5 Hyperlipidemia, unspecified
CPT/HCPCS: 36415; 80053; 80061; 85025

== ENCOUNTER 2023-11-24 10:08 | Outpatient (REF) | payer OTHER, SELFPAY ==
[2023-11-24 10:23] LABS: MANUAL DIFF FLAG NO
[2023-11-24 11:12] LABS: Basophils Absolute Auto 0.1 X10*3/uL (0.0-0.2); Basophils Percent Auto 0.5 % (0-2); Eosinophils Absolute Auto 0.1 X10*3/uL (0.0-0.4); Hematocrit 40.9 % (37.0-47.0); Hemoglobin 12.7 g/dl (12.0-16.0); Imm Gran Abs Auto 0.03 X10*3/uL (0.00-0.03); Imm Gran Pct Auto 0.3 % (0.0-0.4); Lymphocytes Percent Auto 20.8 % (20-40); Mean Corpuscular HGB Conc 31.1 g/dl (31.0-35.0); Mean Corpuscular Hemoglobin 22.5 pg (27.0-33.0); Mean Corpuscular Volume 72.5 fL (80.0-98.0); Mean Platelet Volume 9.4 fL (9.4-12.3); Monocytes Absolute Auto 0.7 X10*3/uL (0.1-1.2); Monocytes Percent Auto 6.9 % (2-11); Neutrophils Absolute Auto 6.8 x10*3/uL (2.0-8.3); Neutrophils Percent Auto 70.5 % (45-73); Platelet Count 497 X10*3/uL (160-400); Red Blood Count 5.64 X10*6/uL (4.20-5.50); Red Cell Distribution Width 17.2 % (11.0-16.0); White Blood Count 9.7 X10*3/uL (4.8-10.8)
== END 2023-11-24 10:09 | disposition home or self-care (01) ==
LOC: HO.LAB 10:08
PROVIDERS: PCP Internal Medicine; Visit Provider Internal Medicine
DX: D64.9 Anemia, unspecified (principal)
CPT/HCPCS: 36415; 85025

== ENCOUNTER 2023-12-04 09:07 | Outpatient (AMB) | payer OTHER, SELFPAY ==
--- NOTE | 2023-12-04 09:15 | MHC.OFFVIS ---
Vital Signs 12/04/23 09:18 Height 5 ft Weight 230 lb BMI 44.9 BP 159/89 H Blood Pressure Location Lt brachial Position Sitting Pulse 79 Intake Visit Reasons: MRI results follow-up *[place] Intake Note: Patient is seen in office for MRI results, following right breast mass. Pt c/o: continued bloody discharge, specially when pressing on it. MRI [facility]:11/26/23 Superintendent Drilling Required: No Accompanied by: Self / Same As Patient Allergies shrimp Allergy (Intermediate, Uncoded 12/04/23 09:18) itch, throat closing Medication List - Last Reconciled 12/04/23 by Danilo Carter MD magnesium oxide 400 mg PO DAILY 90 days sertraline 100 mg PO DAILY 90 days sertraline 50 mg PO DAILY 90 days HPI Comments Details: 33-year-old female patient presenting with a recent abnormal mammogram and ultrasound of the right breast. She is peripartum and recently lost her baby. She subsequently developed bloody discharge from the right nipple. Further workup with mammogram and ultrasound revealed a density in the right breast for which ultrasound-guided core biopsy was recommended. A follow-up breast MRI was recommended. She reports a prior history of bilateral breast reduction surgery which she tolerated well. She denies a previous history of breast cancer in her family history is negative for breast cancer as well. She does feel a lump in the 5 o'clock position felt best when sitting up. She did have some bloody discharge after the of her last baby however this subsequently stopped but now over the past week as she has had some milky discharge from the right breast. This discharge continues today on a daily basis. She underwent ultrasound-guided core biopsy at the [facility] on 10/14/2023. Pathology revealed benign breast tissue with fibroadenomatous change, focal adenosis and pseudoangiomatous stromal hyperplasia; no atypia or malignancy identified. Subsequent breast MRI performed at [facility] on 11/26/2023 revealed benign appearing lesions consistent with the prior biopsied density in the 5 o'clock position in a similar benign-appearing lesion in the 7 o'clock position. No MR specific evidence of malignancy was identified (BI-RADS 2). [facility] Medical History Acute diarrhea Morbid obesity Dysuria Depression Surgical History Hx of section Hx of breast reduction, elective H/O laparoscopy Family History Mother Fibromyalgia Pure hypercholesterolemia Father Substance use disorder Mental health disorder Social History Housing: House Alcohol intake: current Alcohol intake frequency: holidays/special occasions only Alcohol type: wine Patient Tobacco Use Status: Never used Tobacco e-Cigarette/Vaping Use: Never Used Second Hand Smoke Exposure: No service: No Current occupational status: unemployed Current occupation: [employer] Cognitive needs: No Hearing needs: No Vision needs: No Female Reproductive History Menstrual Age of Menarche: 13 Review of Systems Const All systems reviewed & are unremarkable except as noted in HPI and below Denies chills, Denies fever(s), Denies headache(s), Denies poor appetite and Denies weakness ENT Denies headache(s) Card Denies chest pain, Denies irregular heart rhythm, Denies palpitations and Denies dyspnea Resp Denies cough, Denies excessive phlegm production and Denies dyspnea GI Denies abdominal pain, Denies bloating, Denies change in bowel habits, Denies constipation, Denies heartburn, Denies diarrhea, Denies nausea and Denies vomiting Denies urinary frequency and Reports nipple discharge Musc Denies back pain, Denies muscle weakness and Denies numbness Skin/Breast Denies breast swelling, Denies breast skin changes, Denies breast pain, Reports breast mass, Denies changing lesions, Reports nipple discharge and Denies unusual bruising Neuro Denies headache(s), Denies numbness, Denies paresthesias and Denies weakness Psych Denies anxiety and Denies depression Endo Denies palpitations Hermilo/Lymph Denies lymphadenopathy Physical Exam Vital Signs: Last Vital Signs Pulse 79 12/04/23 09:18 BP 159/89 H 12/04/23 09:18 BMI result Body Mass Index 44.9 Const General: cooperative and no acute distress Nutritional Appearance: well nourished Orientation/consciousness: patient oriented x3 Limitations: no limitations HEENT Head: Yes normocephalic and Yes atraumatic Ears: hearing grossly normal bilaterally Chest Other: Left breast: No skin change, no nipple retraction, no nipple discharge, no palpable mass, no enlarged lymph nodes. Right breast: No skin change, no nipple retraction, nipple discharge able to be expressed at the 10 to 11 o'clock position, clear in color without blood. A palpable smooth mobile mass noted in the 5 o'clock position just lateral to her reduction mammoplasty incision. No enlarged lymph nodes Resp Effort & Inspection: normal respiratory effort, no audible wheezes, no cough and no respiratory distress Cardio Jugular venous distension: no JVD GI Inspection: Yes normal to inspection Skin Other: Warm, dry, no rash Neuro General: patient oriented x3 Extrem General: Yes no clubbing, cyanosis or edema Assessment & Plan Assessment & Plan (1) Abnormal ultrasound of breast: Comment: Right breast 05:00 o'clock location by mammogram and ultrasound Code(s): R92.8 - Other abnormal and inconclusive findings on diagnostic imaging of breast Category: Medical Plan 33-year-old female patient presenting with a palpable mass in the right breast at the 5 o'clock position confirmed on mammogram and ultrasound. On examination the patient has a smooth, mobile density which does appear consistent with a fibroadenoma. She underwent ultrasound-guided core biopsy on 10/14/2023. Pathology confirmed fibroadenoma and PASH. Subsequent MRI performed on 11/26/2023 revealed benign findings and no MR specific evidence of malignancy (BI-RADS 2). She continues to have the nipple discharge which appears to be unrelated to the fibroadenoma in the lower breast. We discussed the possibility of performing a duct excision for diagnostic purposes as well as to stop the persistent nipple discharge. After discussion of the procedure, risks and alternatives, she consents to a right nipple duct excision. This will be scheduled as a short-stay surgery at her earliest convenience. Coding Level of Care Code Est Pt Level 4 (23997) Diagnoses Abnormal ultrasound of breast R92.8
[2023-12-04 09:18] VITALS: BP 159/89; PULSE 79; BMI 44.9
== END 2023-12-04 09:30 | disposition home or self-care (01) ==
PROVIDERS: PCP Internal Medicine; Visit Provider Surgery
DX: R92.8 Other abnormal and inconclusive findings on diagnostic imaging of breast (principal)
CPT/HCPCS: 99214

== ENCOUNTER → 2023-12-04 09:07 | Outpatient (BNVA) | payer OTHER, SELFPAY | PROVIDERS: PCP Internal Medicine; Visit Provider Surgery | DX: R92.8 Other abnormal and inconclusive findings on diagnostic imaging of breast (principal); N63.14 Unspecified lump in the right breast, lower inner quadrant | CPT/HCPCS: 99212 ==

== ENCOUNTER 2023-12-14 08:33 | Day surgery (SDC) | payer OTHER, SELFPAY ==
[2023-12-10 10:22] VITALS: BMI 44.9
[2023-12-14] VITALS (7 sets, daily range): BP systolic 107–142; BP diastolic 61–91; PULSE 66–81; RESP 14–18; TEMP 36.6–36.8; O2SAT 94–99; BMI 45.7
[2023-12-14] MEDS: Lactated Ringers 1,000 ML 100 ML IVCONT (08:57)
[2023-12-14 09:23] LABS: UPreg QC Valid YES; Urine Pregnancy NEGATIVE (NEGATIVE)
--- NOTE | 2023-12-14 09:32 | MHC.SHP ---
Pre-Procedural Eval Section A - 24 Hr Update-Section A only Date of Service: 12/14/23 The patient is an INPATIENT: No Changes since office visit: Yes Patient answered all questions; No Cold of Flu in the past 2 weeks, No New Medical Problems and No Changes in Medication The patient has been examined within 24 hours of the surgical procedure. The History & Physical has been completed within 30 days and I have reviewed it.: Yes Section B - Complete if H&P > 30 days Chief Complaint: Other abnormal and inconclusive findings on diagno Allergies: Allergies Allergy/AdvReac Type Severity Reaction Status Date / Time shrimp Allergy Intermediate itching/throat Verified 12/14/23 09:27 closes Plan Diagnosis/Plan: Unchanged I have reviewed the history and physical and performed a pertinent physical examination on my patient. No changes have occurred unless specified. Time Spent With Patient Time: Total time managing care of this patient today ____ minutes.
--- NOTE | 2023-12-14 09:35 | HO.ANESPROP2 ---
Documented by User: Tracy Ocampo NP 12/10/23 15:16 HPI - Anesthesia Eval Consult details Narrative: 33yo F for Right Excision Nipple Duct PMFSH Active Problems Active Problems: All Active Problems Bloody discharge from right nipple (Acute) Abnormal ultrasound of breast (Acute) Essential hypertension (Acute) Mild major depression (Acute) Breast lump on right side at 6 o'clock position (Acute) Encounter for physical examination (Acute) Left knee pain (Acute) Left hip pain (Acute) Left shoulder pain (Acute) Acute diarrhea (Acute) Morbid obesity (Acute) Dysuria (Acute) Depression (Acute) Past Medical History Medical History Acute diarrhea Morbid obesity Dysuria Depression Family History Family History Mother Fibromyalgia Pure hypercholesterolemia Father Substance use disorder Mental health disorder Surgical History Surgical History Hx of section Hx of breast reduction, elective H/O laparoscopy Social History Social History Housing: House Alcohol intake: current Alcohol intake frequency: holidays/special occasions only Alcohol type: wine Patient Tobacco Use Status: Never used Tobacco e-Cigarette/Vaping Use: Never Used Second Hand Smoke Exposure: No Are you DNR?: No Advance Directives: No Advance Directives Information Provided: Yes Nutrition Risks: No Nutritional Risk FDLMP: currently service: No Current occupational status: unemployed 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 Cognitive needs: No Hearing needs: No Vision needs: No Meds Allergies Allergy/AdvReac Type Severity Reaction Status Date / Time shrimp Allergy Intermediate itching/throat Verified 12/14/23 09:27 closes Exam Height,Weight and Vital Signs: Height 5 ft Weight 104.326 kg Pertinent Lab Results Pertinent Lab Results: Laboratory Tests 10/29/23 11/24/23 09:09 10:21 WBC 9.7 Hgb 12.7 Hct 40.9 Plt Count 497 H Sodium 140 Potassium 4.3 Chloride 105 Carbon Dioxide 26 BUN 10 Creatinine 0.68 Assessment and Plan Assessment Anesthesia Assessment: Chart Reviewed Documented by User: Bethanie Delcid DO 12/14/23 09:46 [facility] Past Medical History Medical History Acute diarrhea Morbid obesity Dysuria Depression Family History Family History Mother Fibromyalgia Pure hypercholesterolemia Father Substance use disorder Mental health disorder Family history of problems with anesthesia: No Surgical History Surgical History Hx of section Hx of breast reduction, elective H/O laparoscopy History of Problems with Anesthesia: No Social History Social History Housing: House Alcohol intake: current Alcohol intake frequency: holidays/special occasions only Alcohol type: wine Patient Tobacco Use Status: Never used Tobacco e-Cigarette/Vaping Use: Never Used Second Hand Smoke Exposure: No Are you DNR?: No Advance Directives: No Advance Directives Information Provided: Yes Nutrition Risks: No Nutritional Risk FDLMP: currently service: No Current occupational status: unemployed 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 Cognitive needs: No Hearing needs: No Vision needs: No Meds Allergies Allergy/AdvReac Type Severity Reaction Status Date / Time shrimp Allergy Intermediate itching/throat Verified 12/14/23 09:27 closes Exam Exam Date and Time: December 14, 2023 0935 Height,Weight and Vital Signs: Height 5 ft Weight 104.326 kg Vital Signs Temperature 98.1 F 12/14/23 09:12 Pulse Rate 75 12/14/23 09:12 Respiratory Rate 18 12/14/23 09:12 Blood Pressure 142/82 H 12/14/23 09:12 Pulse Oximetry 97 12/14/23 09:12 Oxygen Delivery Method Room Air 12/14/23 09:12 Temperature 98.1 F 12/14/23 09:12 Pulse Rate 75 12/14/23 09:12 Respiratory Rate 18 12/14/23 09:12 Blood Pressure 142/82 H 12/14/23 09:12 Pulse Oximetry 97 12/14/23 09:12 Oxygen Delivery Method Room Air 12/14/23 09:12 Height 5 ft Weight 106.141 kg Airway Mallampati Class: II TM Dist: >3cm Neck ROM: Full Loose/Missing/Broken Teeth: No (patient denies any loose or broken teeth) Heart: S1S2 Lungs: CTAB Assessment and Plan Assessment Anesthesia Assessment: Anesthesia Plan Discussed and Chart Reviewed Final Anesthetic Review Family History of Problems with Anesthesia: No History of Problems with Anesthesia: No NPO: Yes ASA Class: II Final Preanesthetic Review: No Changes in Pt Med Stat, Meds/Allgs Chart Reviewed, Consent Obtained/Reviewed and Anes Risks/Benef Reviewed Patient Risk: Low Procedure Risk: Low Anesthetic Plan Anesthetic Plan: GA and Agree w/ Assess. and Plan Disposition: Standard PACU
--- NOTE | 2023-12-14 10:23 | W.PM.OPN ---
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 Patient has persistent discharge from the right nipple for several months always from the same location. The discharge is spontaneous occasionally bloody. She presents today for excision of the persistently draining lactiferous duct Operative findings: Draining lactiferous duct located in the 10 to 11 o'clock position right breast Specimen: Right lactiferous duct Estimated blood loss: Less than 2 mL Complications: None Procedure details: Patient was brought to the OR placed in a supine position. After administering general anesthesia the patient's right breast was prepped with ChloraPrep and draped in a sterile fashion. A surgical time-out was called and the consent confirmed. Patient received preoperative antibiotics and Venodyne boots were in place. Local anesthesia was infiltrated in a 9 to 12 o'clock position below the nipple-areolar complex. A 1 lacrimal probe was then advanced into the leaking lactiferous duct from the nipple. This tracked lap early in the 10-11 o'clock position. A curvilinear incision was then made lateral to the areola at this location and carried out through subcutaneous tissue. Superior and inferior skin flaps were then created. The probe was identified within the breast tissue and grasped with an Allis clamp. Electrocautery was then used to dissect the breast tissue around the lactiferous duct circumferentially up to the nipple. At the nipple the duct was ligated using a 3-0 Polysorb tie. The specimen was removed and sent to pathology for further examination. Wounds were irrigated with saline solution and suctioned dry. Hemostasis was assured using electrocautery. Dermis was then reapproximated using interrupted 3-0 Polysorb sutures. Skin was closed using a running subcuticular 4-0 Polysorb suture. Steri-Strips, 2 x 2 gauze and Tegaderm were then applied. The patient tolerated the procedure well. Sponge, instrument, and needle counts were reported as correct. The patient was transferred to PACU in stable condition.
== END 2023-12-14 12:37 | disposition home or self-care (01) ==
PROVIDERS: Nurse Practitioner; PCP Internal Medicine; Visit Provider Surgery
PROC: (CPT 19112; principal; 2023-12-14 10:10)
DX: N64.52 Nipple discharge (principal); N60.21 Fibroadenosis of right breast; D24.1 Benign neoplasm of right breast; N64.89 Other specified disorders of breast; Z98.890 Other specified postprocedural states; F32.A Depression, unspecified; E66.01 Morbid (severe) obesity due to excess calories; Z68.41 Body mass index [BMI] 40.0-44.9, adult; Z79.899 Other long term (current) drug therapy; Z56.0 Unemployment, unspecified
CPT/HCPCS: 19110; 81025; 88305; 88307; J0131; J0690; J1100; J1885; J2250; J2405; J2704; J2795; J3010

== ENCOUNTER → 2023-12-14 08:33 | Outpatient (BNV) | payer OTHER, SELFPAY | PROVIDERS: PCP Internal Medicine; Visit Provider Surgery | DX: N64.52 Nipple discharge (principal) | CPT/HCPCS: 19110 ==

== ENCOUNTER 2023-12-24 13:38 | Outpatient (AMB) | payer OTHER, SELFPAY ==
--- NOTE | 2023-12-24 13:38 | A.OFFVIS_ITS ---
Vital Signs 12/24/23 13:46 Height 5 ft Weight 233 lb BMI 45.5 Pulse 69 Intake Visit Reasons: S/P excision Rt nipple duct Intake Note: Patient is seen in office for post op assessment post excision right breast lactiferous duct. Pt c/o: some minor bruising and sore, denies redness or discharge Op:12/14/23 Track Equipment Operator Required: No Accompanied by: Self / Same As Patient Allergies shrimp Allergy (Intermediate, Verified 12/24/23 13:46) itching/throat closes HPI Comments Details: Patient returns 1 week following excision of a right lactiferous duct for persistent discharge. Pathology revealed benign breast tissue with no evidence of atypia or malignancy. She tolerated the procedure well and reports no requiring any pain medication postoperatively. She was provided with a copy of the pathology report today. [facility] Medical History Acute diarrhea Morbid obesity Dysuria Depression Surgical History (Updated 12/24/23 @ 09:59 by ANGIE Shipley) History of excision of lesion (12/14/23) Hx of section Hx of breast reduction, elective H/O laparoscopy Family History Mother Fibromyalgia Pure hypercholesterolemia Father Substance use disorder Mental health disorder Social History Housing: House Alcohol intake: current Alcohol intake frequency: holidays/special occasions only Alcohol type: wine Patient Tobacco Use Status: Never used Tobacco e-Cigarette/Vaping Use: Never Used Second Hand Smoke Exposure: No service: No Current occupational status: unemployed 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 Cognitive needs: No Hearing needs: No Vision needs: No Female Reproductive History Menstrual Age of Menarche: 13 Physical Exam Const General: no acute distress Nutritional Appearance: well nourished Orientation/consciousness: patient oriented x3 Limitations: no limitations Chest Other: Exam deferred Resp Effort & Inspection: normal respiratory effort Neuro General: patient oriented x3 Extrem Other: No edema Assessment & Plan Assessment & Plan (1) Bloody discharge from right nipple: Code(s): N64.52 - Nipple discharge Category: Medical Plan 1 week post excision of a right lactiferous duct for persistent drainage. Pathology revealed benign breast tissue with no atypia. She reports tolerating the procedure well and feels the incision is healed nicely. She should follow up as needed. Coding Level of Care Code Global (90075) Diagnoses Bloody discharge from right nipple N64.52
[2023-12-24 13:46] VITALS: PULSE 69; BMI 45.5
== END 2023-12-24 13:48 | disposition home or self-care (01) ==
PROVIDERS: PCP Internal Medicine; Visit Provider Surgery
DX: N64.52 Nipple discharge (principal)
CPT/HCPCS: 99024

== ENCOUNTER → 2023-12-24 13:38 | Outpatient (BNVA) | payer OTHER, SELFPAY | PROVIDERS: PCP Internal Medicine; Visit Provider Surgery | DX: Z09 Encounter for follow-up examination after completed treatment for conditions other than malignant neoplasm (principal); N64.52 Nipple discharge | CPT/HCPCS: 99212 ==

== ENCOUNTER 2024-02-16 10:17 | Outpatient (AMB) | payer OTHER, SELFPAY ==
--- NOTE | 2024-02-16 10:18 | MHC.PC.OV ---
Vital Signs 02/16/24 10:20 Height 5 ft Weight 242 lb BMI 47.3 BP 132/80 Blood Pressure Location Lt brachial Position Sitting Intake Visit Reasons: Annual Exam Intake Note: Patient here for a physical exam Gore Seamer Required: No Accompanied by: Self / Same As Patient Allergies shrimp Allergy (Intermediate, Verified 02/16/24 10:32) itching/throat closes Medication List - Last Reconciled 02/16/24 by Coni Griffiths MD magnesium oxide 400 mg PO DAILY 90 days sertraline 100 mg PO DAILY 90 days sertraline 50 mg PO DAILY 90 days Tobacco use date assessed: 10/05/23 Dental Screening Dental Screen Date: 02/16/24 Did you have a dental visit in the last 12 months?: Yes Did you have a dental problem in the last 6 months where you did not have access to dental care?: No Was dental information given to patient?: Patient has dentist HPI HPI Comments History of Present Illness Details This is a 33-year-old female with morbid obesity that comes for her physical exam. Her BMI is 47.3 and she declines weight management with weight loss surgery for now. She also declines medications for weight loss. Was advised to do diet and exercise to reach BMI goal less than 30. Pap smear done 2021 was normal. She also has mild major depression and has been well controlled with SSRIs and has not seen her counselor in a month. [facility] Medical History (Updated 02/16/24 @ 10:49 by Coni Griffiths MD) Acute diarrhea Morbid obesity Dysuria Depression Surgical History History of excision of lesion (12/14/23) Hx of section Hx of breast reduction, elective H/O laparoscopy Family History Mother Fibromyalgia Pure hypercholesterolemia Father Substance use disorder Mental health disorder Social History Housing: House Alcohol intake: current Alcohol intake frequency: holidays/special occasions only Alcohol type: wine Patient Tobacco Use Status: Never used Tobacco e-Cigarette/Vaping Use: Never Used Second Hand Smoke Exposure: No service: No Current occupational status: employed 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 Current occupational exposures/hazards: No Cognitive needs: No Hearing needs: No Vision needs: No Female Reproductive History Menstrual Age of Menarche: 13 Questionnaire Thrive Questionnaire Date Thrive assessed: 02/16/24 I am a: Patient What is your living situation today?: I have a steady place to live Within the past 12 months, did the food you bought not last and you didn't have the money to get more?: Never true Within the past 12 months, did you worry whether your food would run out before you got money to buy more?: Never true Do you have trouble paying for medicines?: No Do you have trouble getting transportation to medical appointments?: No Do you have trouble paying your heating and electricity bill?: No Do you have trouble taking care of your child, family member or friend?: No Do you have trouble with day-to-day activities such as bathing, preparing meals, shopping, managing finances, etc.?: No Are you currently unemployed and looking for a job?: No Are you interested in more education?: No Please select the resources that you would like help with: None Currently or been in a relationship where the following occur: No concerns reported THRIVE Score: 0 AUDIT C Alcohol Use Questionnaire (AUDIT-C) 1. How often do you have a drink containing alcohol?: Monthly or less 2. How many drinks containing alcohol do you have on a typical day when you are drinking?: 1 or 2 3. How often do you have six or more drinks on one occasion?: Never Total Score: 1 Score Reviewed/Action Taken: No AGUEDA-7 AMB Questionnaire AGUEDA-7 Date AGUEDA - 7 assessed: 02/16/24 Feeling nervous, anxious, or on edge: 2 = More than half the days Not being able to stop or control worryin = More than half the days Worrying too much about different things: 1 = Several days Trouble relaxin = More than half the days Being so restless that it is hard to sit still: 1 = Several days Becoming easily annoyed or irritable: 2 = More than half the days Feeling afraid as if something awful might happen: 2 = More than half the days Total AGUEDA-7 score (0-4 normal; 5-9 mild; 10-14 moderate; 15-21 severe): 12 Source: Developed by Tesha Williamson Mamadou, Jamal Sotelo and colleagues, with an educational timothy from [employer]. AGUEDA-7 Assessment Billing AGUEDA-7 Assessment Tool: AGUEDA-7 Assessment 32416 Review of Systems Const All systems reviewed & are unremarkable except as noted in HPI and below Card Denies chest pain at rest, Denies chest pain with activity, Denies edema, Denies irregular heart rhythm, Denies claudication, Denies dyspnea, Denies dyspnea on exertion, Denies orthopnea, Denies paroxysmal nocturnal dyspnea and Denies slow heart rate Resp Denies cough, Denies dyspnea and Denies dyspnea on exertion GI Denies abdominal pain, Denies change in bowel habits, Denies excessive flatus, Denies nausea and Denies vomiting Physical exam (Primary Care) Vital Signs: Last Vital Signs BP 132/80 02/16/24 10:20 BMI result Body Mass Index 47.3 BMI Assessment/Plan discussion: High BMI High, discussed plan: lifestyle, weight reduction, dietary and physical activity Tobacco/Smoking Status: Tobacco use Status Tobacco use date assessed 10/05/23 02/16/24 10:25 Patient Tobacco Use Status Never used Tobacco 02/16/24 10:25 Tobacco use type 11/05/23 16:02 e-Cigarette/Vaping Use Never Used 02/16/24 10:25 Thrive Assessment: Date of Thrive Assessment Date Thrive assessed 02/16/24 02/16/24 10:25 Currently or been in a relationship where the following occur: No concerns reported [facility] Head: Yes normal to inspection, Yes normocephalic and Yes atraumatic Ears: external ears normal Eyes General: appearance normal, both eyes and all related structures Eyelids: Yes eyelids normal Conjunctivae: conjunctivae normal Neck Neck: Yes normal visual inspection and Yes supple Resp Effort & Inspection: normal respiratory effort Auscultation: clear to auscultation bilaterally Cardio Jugular venous distension: no JVD Rate: regular rate Rhythm: regular rhythm Heart sounds: S1 normal heart sound present and S2 normal heart sound present GI Inspection: Yes normal to inspection Palpation (GI): Soft to palpation and nontender Auscultation: normal bowel sounds Skin General skin exam: no rashes or lesions noted Neuro General: no focal motor deficits Extrem General: Yes full ROM Psych Appearance: grossly normal Assessment and Plan Assessment & Plan (1) Physical exam: Code(s): Z00.00 - Encounter for general adult medical examination without abnormal findings Plan: Repeat in a year. (2) Mild major depression: Code(s): F32.0 - Major depressive disorder, single episode, mild Plan: Continue SSRIs. (3) Morbid obesity: Code(s): E66.01 - Morbid (severe) obesity due to excess calories Plan: Advised to do diet and exercise to reach BMI goal less than 30. Orders: Orders Vitamin D 25-OH Total Today E55.9 - Vitamin D deficiency, unspecified Lipid Panel Today Z00.00 - Encounter for general adult medical examination without abnormal findings Comprehensive [place]. Panel Fast Today Z00.00 - Encounter for general adult medical examination without abnormal findings Coding Level of Care Code Est Pt Prev Care 18-39y(20466) Diagnoses Physical exam Z00.00 Mild major depression F32.0 Morbid obesity E66.01 Additional Codes AGUEDA-7 Assessment Billing - AGUEDA-7 Assessment Tool: AGUEDA-7 Assessment 82511 ([id number]) Time Spent (min) 31
[2024-02-16 10:20] VITALS: BP 132/80; BMI 47.3
== END 2024-02-16 10:53 | disposition home or self-care (01) ==
PROVIDERS: PCP Internal Medicine; Visit Provider Internal Medicine
DX: Z00.00 Encounter for general adult medical examination without abnormal findings (principal); F32.0 Major depressive disorder, single episode, mild; E66.01 Morbid (severe) obesity due to excess calories; Z68.42 Body mass index [BMI] 45.0-49.9, adult
CPT/HCPCS: 99395

== ENCOUNTER → 2024-04-12 11:00 | Outpatient (BNV) | payer OTHER, SELFPAY | PROVIDERS: Visit Provider Radiology Diagnostic Radiology | DX: R92.8 Other abnormal and inconclusive findings on diagnostic imaging of breast (principal) | CPT/HCPCS: 76641 ==

== ENCOUNTER 2024-04-12 11:05 | Outpatient (REF) | payer OTHER, SELFPAY ==
--- NOTE | ~2024-04-12 | US_ITS ---
EXAMINATION: US DIAGNOSTIC ULTRASOUND BREAST, RIGHT CLINICAL INFORMATION: Six-month interval follow-up for 5:00 oval mass previously biopsy yielding benign fibroadenomatous change, PASH, and focal adenosis. Assess for stability after biopsy. COMPARISON: 10/12/2023 and 10/14/2023 right breast diagnostic ultrasound and ultrasound-guided biopsy. TECHNIQUE: Ultrasound of the right breast is performed with real-time patel scale imaging and color Doppler. Attention to the lower inner quadrant was given, to assess the mass of previous concern. FINDINGS: Oval, hypoechoic, circumscribed mass with good through transmission is slightly smaller on today's examination at the 5:00 axis, 4 cm from the nipple. It currently measures 3.1 x 1.1 x 2.3 cm (previously measuring 3.4 x 1.3 x 2.9 cm). This confirms benignity. There is a biopsy clip in place in the peripheral aspect of the mass. No additional abnormal findings. US/US breast RT complete IMPRESSION: Benign biopsied mass is slightly smaller 6 month after biopsy. This confirms benignity. No further follow-up recommended at this time. Recommend the patient resume routine annual screening mammography at age 40. ASSESSMENT: BI-RADS 2: Benign RECOMMENDATION: Routine annual mammography screening beginning at age 40, or sooner if clinically indicated. This patient's information was entered into a reminder system with a target due date for their next mammogram. Electronically signed by: Jason Hagan MD 04/12/2024 12:00 PM EDT
== END 2024-04-12 11:06 | disposition home or self-care (01) ==
LOC: HO.MAMMO 11:05
PROVIDERS: Visit Provider Surgery
DX: R92.8 Other abnormal and inconclusive findings on diagnostic imaging of breast (principal)
CPT/HCPCS: 76641

== ENCOUNTER 2024-06-16 10:02 | Outpatient (AMB) | payer OTHER, SELFPAY ==
--- NOTE | 2024-06-16 10:45 | MHC.OFFWIV ---
Intake Vital Signs 06/16/24 10:47 Weight 239 lb BP 130/90 H Blood Pressure Location Lt brachial Position Sitting Pulse 68 Pulse Source Pulse Oximeter Temp 98.1 F Temp Source Oral Pulse Oximetry (%) 98 Oxygen Delivery Method Room Air Intake Visit Reasons: EP-upper abd pain Intake Note: Patient here for upper abd pain/burning that has been present for about 2 weeks. Patient Tobacco Use Status: Never used Tobacco Allergies shrimp Allergy (Intermediate, Verified 06/16/24 10:49) itching/throat closes Do you need a note to return to daycare/school/sports/work: Yes HPI EP-upper abd pain HPI Details This note is constructed using voice recognition software. While every effort has been made to ensure accuracy, information technology intern errors may have been included. The patient is a 34 year old female who presents to the clinic today with 3 weeks of mid epigastric pain, worsening. She denies nausea, vomiting, diarrhea, blood per rectum. She is actively in the process of losing weight, was on Wegovy, however insurance did not approve that, so actively switching medication to Zepbound which she has not yet started. [facility] Medical History Acute diarrhea Morbid obesity Dysuria Depression Surgical History History of excision of lesion (12/14/23) Hx of section Hx of breast reduction, elective H/O laparoscopy Family History Mother Fibromyalgia Pure hypercholesterolemia Father Substance use disorder Mental health disorder Social History Housing: House Alcohol intake: current Alcohol intake frequency: holidays/special occasions only Alcohol type: wine Patient Tobacco Use Status: Never used Tobacco e-Cigarette/Vaping Use: Never Used Second Hand Smoke Exposure: No service: No Current occupational status: employed 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 Current occupational exposures/hazards: No Cognitive needs: No Hearing needs: No Vision needs: No Female Reproductive History Menstrual Age of Menarche: 13 Review of Systems Const All systems reviewed & are unremarkable except as noted in HPI and below Physical Exam Vital Signs: Last Vital Signs Temp 98.1 F 06/16/24 10:47 Pulse 68 06/16/24 10:47 BP 130/90 H 06/16/24 10:47 Pulse Ox 98 06/16/24 10:47 Oxygen Delivery Method Room Air 06/16/24 10:47 Const General: cooperative, healthy appearing, comfortable, no acute distress and well developed Orientation/consciousness: patient oriented x3 Limitations: no limitations HEENT Head: Yes normal to inspection Neck Neck: Yes normal visual inspection Resp Effort & Inspection: normal respiratory effort and able to speak in complete sentences Auscultation: clear to auscultation bilaterally Cardio Jugular venous distension: no JVD Rate: regular rate Rhythm: regular rhythm Heart sounds: S1 normal heart sound present, S2 normal heart sound present and normal S1 and S2 GI Inspection: Yes normal to inspection Palpation (GI): Soft to palpation and Tenderness to palpation present (GI) in the epigastrum Percussion: Yes normal to percussion Auscultation: normal bowel sounds Skin General skin exam: no rashes or lesions noted Neuro General: patient oriented x3 Psych Appearance: grossly normal Attitude: cooperative Assessment & Plan Assessment & Plan (1) Acid reflux: Code(s): K21.9 - Gastro-esophageal reflux disease without esophagitis Qualifiers: Esophagitis presence: without esophagitis Qualified Code(s): K21.9 - Gastro-esophageal reflux disease without esophagitis Plan: Advised avoidance acidic foods, carbonated beverages, large meals, or anything to eat or drink within 2-3 hours of lying down. Consider trial famotidine for at least 2 weeks, for symptomatic management and then p.r.n. after that. Advised patient to follow up worsening or failure to resolve. Plan See above for full details and plan. Medications: New famotidine Take daily for 2 weeks, then trial as needed for acid reflux 20 mg PO BEDTIME 14 tabs 0RF Coding Level of Care Code Est Pt Level 3 (45558) Diagnoses Gastroesophageal reflux disease without esophagitis K21.9 Esophagitis presence: without esophagitis
[2024-06-16 10:47] VITALS: BP 130/90; PULSE 68; TEMP 36.7; O2SAT 98
== END 2024-06-16 11:09 | disposition home or self-care (01) ==
PROVIDERS: Visit Provider Registered Nurse
DX: K21.9 Gastro-esophageal reflux disease without esophagitis (principal)

== ENCOUNTER → 2024-06-16 10:02 | Outpatient (BNVA) | payer OTHER, SELFPAY | PROVIDERS: Visit Provider Registered Nurse | DX: K21.9 Gastro-esophageal reflux disease without esophagitis (principal) | CPT/HCPCS: 99212 ==

== ENCOUNTER 2025-02-21 09:26 | Outpatient (AMB) | payer OTHER, SELFPAY ==
--- OUTSIDE RECORDS SUMMARY | 2025-02-15 08:27 | XMS_ITS | Encounter Summary ---
Author Organization [facility] Address [address] [facility] [address] [place] [id number] Phone Care Team Providers Care Body Recall Instructor Name Role Phone Coni Gomez MD Primary Care Provid er Encounter Details Date Type Department Care Team (Latest Contact Info) Description 02/15/2025 8:27 AM EDT - 02/15/2025 11:59 PM EDT Hospital Encounter [facility] [address] [place] [address] Sheela See, [facility] [address] [facility], [address] [place] [address] [email or web address] Discharge Disposition: Home or Self Care Social History Tobacco Use Types Packs/Day Years Used Date Smoking Tobacco: Never Smokeless Tobacco: Never Alcohol Use Standard Drinks/Week Comments Not Currently 0 (1 standard drink = 0.6 oz pur e alcohol) once per month Education Answer Date Recorded Are you interested in more education? Not on briseida e 10/10/2022 Are you concerned about learning? Not on file 10/10/2022 No 10/10/2022 No 10/10/2022 Digital Access Answer Date Recorded No 11/07/2022 No 11/07/2022 Reliable internet access at home? Not on file 11/07/2022 Device with a working camera? Not on file Intimate Partner Violence Answer Date R ecorded Are you denied basic needs s uch as food, clothing, or medical care? Deferred 01/11/2025 In the past 12 months have y ou been in a relationship with a person who hurts, threatens, or tries to control you? Deferred 01/11/2025 Are you denied basic needs s uch as food, clothing, or medical care? Deferred 01/11/2025 In the past 12 months have y ou been in a relationship with a person who hurts, threatens, or tries to control you? Deferred 01/11/2025 Estimated Date of Delivery Comme nts Yes 03/16/2025 Based on last me nstrual period of 06/09/2024 Sex and Gender Information Value Date Recorded Sex Assigned at Female 06/03/2019 12:04 PM EST Legal Sex Female 8:58 PM EDT Gender Identity Female 06/03/2019 12:04 PM EST Sexual Orientation Straight 10/11/2020 11 :41 AM EDT documented as of this encounter Medications at Time of Discharge aspirin 81 MG EC tabletIndications:Ch ronic hypertension in Take 2 tablets (162 mg total) by mouth daily. 60 tablet 10 08/04/2024 magnesium oxide 400 mg magnesium Cap Take 1 capsule by mouth every morning. 11/29/2024 ondansetron (ZOFRAN-ODT) 4 MG disintegrating tabletIndications:Na usea and vomiting, unspecified vomiting type Take 1 tablet (4 mg total) by mouth every 8 (eight) hours as needed for nausea. 24 tablet 1 08/04/2024 vitamins with ferrous fumarate- folic acid 28 mg iron- 800 mcg Tab Take 1 tablet by mouth daily. sertraline (ZOLOFT) 100 MG tablet Take 2 tablets (200 mg total) by mouth daily. 01/11/2025 documented as of this encounter Plan of Treatment Upcoming Encounters Date Type Department Care Team (Late st Contact Info) Description 02/23/2025 11:00 AM EDT Appointment [facility] [address] [place] [address] Sheela See CNM [address] [facility], [address] [place] [address] 02/23/2025 12:00 PM EDT Office Visit [facility] [address] [place] [address] Nicholas Araujo MD [address] [facility], [address] [place] [address] 03/02/2025 Hospital Encounter [facility] [address] [place] [address] Nicholas Araujo MD [address] [facility], [address] [address] 03/02/2025 Procedure Pass [facility] [address] [place] [address] 04/10/2025 9:30 AM EDT Office Visit [facility] [address] [place] [address] Sheela Cruz MD [address] [facility], 2nd [place] [address] [email or web address] Scheduled Procedures Name Priority Associated Diagnoses Date/Ti me SECTION REPEAT Supervision of high risk in third trimester History of delivery documented as of this encounter Procedures Procedure Name Priority Date/Time Associated Diagnosis Comments US OB BIOPHYSICAL PROFILE WITH OB LIMITED Routine 02/15/2025 8:54 AM EDT Supervision of high risk in first trimester Chronic hypertension in Obesity affecting in first trimester, unspecified obesity type Current in first trimester with history of during prior documented in this encounter Results * US OB BIOPHYSICAL PROFILE WITH OB LIMITED (02/15/2025 8:54 AM EDT) Anatomical Region Laterality Modality Abdomen, Pelvis, Uterus/Adnexa U ltrasound 02/15/2025 8:56 AM EDT Impressions 02/15/2025 6:02 PM EDT Single live IUP in vertex presentation with normal testing. Narrative 02/15/2025 6:02 PM EDT Procedure: US OB BIOPHYSICAL PROFILE WITH OB LIMITED 02/15/2025 8:29 AM US Indications: Obesity Complicating ; history of demise, CHTN not on meds. Comparison: No relevant recent comparisons. Maternal age: 34 years. Technique: Transabdominal scan was performed. Color Doppler and M-mode imaging was performed to assess vascularity. FINDINGS: number: 1 position: Vertex oblique. Placental position: Posterior. Placental grade: 3 Heart Rate: 126.0 bpm Cervix: The cervix is suboptimally visualized secondary to head position. Gestational Age by LMP: 35 weeks 6 day(s) Established IMTIAZ: 35 weeks 6 day(s) Quads: Amniotic Sac Quad 1 - 3.85 cm Amniotic Sac Quad 2 - 6.09 cm Amniotic Sac Quad 3 - 6.97 cm Amniotic Sac Quad 4 - 3.79 cm Amniotic Fluid Index - 20.70 cm Biophysical Profile Score: Fluid: 2 Breathin Movement: 2 Tone: 2 Total: 8 Limited Assessment: The stomach, kidneys, urinary bladder and four-chamber heart were evaluated and normal. Tech Comments: Carlton . BPP 01/20. Active fetus with normal fluid x2. Polyhydramnios not seen on today's exam. Procedure Note Nicholas Araujo MD - 02/15/2025 Procedure: US OB BIOPHYSICAL PROFILE WITH OB LIMITED 02/15/2025 8:29 AM US Indications: Obesity Complicating ; history of neonataldemise, CHTN not on meds. Comparison: No relevant recent comparisons. Maternal age: 34 years. Technique: Transabdominal scan was performed. Color Doppler and M-modeimaging was performed to assess vascularity. FINDINGS: number: 1 position: Vertex oblique. Placental position: Posterior. Placental grade: 3 Heart Rate: 126.0 bpm Cervix: The cervix is suboptimally visualized secondary to headposition. Gestational Age by LMP: 35 weeks 6 day(s) Established IMTIAZ: 35 weeks 6 day(s) Quads: Amniotic Sac Quad 1 - 3.85 cm Amniotic Sac Quad 2 - 6.09 cm Amniotic Sac Quad 3 - 6.97 cm Amniotic Sac Quad 4 - 3.79 cm Amniotic Fluid Index - 20.70 cm Biophysical Profile Score: Fluid: 2 Breathin Movement: 2 Tone: 2 Total: 8 Limited Assessment: The stomach, kidneys, urinary bladder andfour- chamber heart were evaluated and normal. Tech Comments: Carlton . BPP 01/20. Active fetus with normal fluid x2.Polyhydramnios not seen on today's exam. IMPRESSION: Single live IUP in vertex presentation with normal testing. Sheela See CN IMG US OBSTETRIC Fi nal Result documented in this encounter Visit Diagnoses Diagnosis Supervision of high risk in first trimester Chronic hypertension in Obesity affecting in first trimester, unspecified obesity type Current in first trimester with history of during prior documented in this encounter Care Teams Body Recall Instructor Relationship Specialty Start Date End Date Coni Gomez MD [address] [place] [address] PCP - General Internal Medicine 06/03/19 documented as of this encounter Additional Source Comments The information contained in this document represents components of the legal health record. It is not the complete legal health record.[facility]
--- NOTE | 2025-02-21 09:29 | MHC.PC.OV ---
Vital Signs 02/21/25 09:30 Height 5 ft Weight 240 lb 2 oz BMI 46.9 BP 118/60 Blood Pressure Location Lt brachial Position Sitting Pulse 86 Pulse Source Pulse Oximeter Pulse Oximetry (%) 98 Oxygen Delivery Method Room Air Intake Visit Reasons: Annual Exam Shaft Mechanic Required: No Accompanied by: Self / Same As Patient Allergies shrimp Allergy (Intermediate, Verified 02/21/25 09:44) itching/throat closes Medication List - Last Reconciled 02/21/25 by Coni Griffiths MD magnesium oxide 400 mg PO DAILY 90 days sertraline 200 mg (2 x 100 mg) PO DAILY 90 days Tobacco use date assessed: 02/21/25 Dental Screening Dental Screen Date: 02/21/25 Did you have a dental visit in the last 12 months?: Yes Did you have a dental problem in the last 6 months where you did not have access to dental care?: No Was dental information given to patient?: Patient has dentist HPI HPI Comments History of Present Illness Details The patient is a 34-year-old female presenting with a scheduled physical exam. She is currently 37 weeks and has a section scheduled for this month. Her preventative care is up to date, including a Tdap vaccination administered last month. Mild major depression stable with SSRIs. She is morbidly obese with a BMI of 46.9 and was advised to do diet and exercise to reach BMI goal less than 30. [facility] Medical History Acute diarrhea Morbid obesity Dysuria Depression Surgical History History of excision of lesion (12/14/23) Hx of section Hx of breast reduction, elective H/O laparoscopy Family History Mother Fibromyalgia Pure hypercholesterolemia Father Substance use disorder Mental health disorder Social History Housing: House Alcohol intake: current Alcohol intake frequency: holidays/special occasions only Alcohol type: wine Patient Tobacco Use Status: Never used Tobacco e-Cigarette/Vaping Use: Never Used Second Hand Smoke Exposure: No service: No Current occupational status: employed Current occupation: [employer] Current occupational exposures/hazards: No Cognitive needs: No Hearing needs: No Vision needs: No Female Reproductive History Menstrual Age of Menarche: 13 Questionnaire PHQ-9 Over the last 2 weeks, how often have you been bothered by any of the following problems? 1. Little interest or pleasure in doing things: not at all 2. Feeling down, depressed, or hopeless: not at all 3. Trouble falling or staying asleep, or sleeping too much: not at all 4. Feeling tired or having little energy: not at all 5. Poor appetite or overeating: not at all 6. Feeling bad about yourself - or that you are a failure or have let yourself or your family down: not at all 7. Trouble concentrating on things, such as reading the newspaper or watching television: not at all 8. Moving or speaking so slowly that other people could have noticed. Or the opposite - being so fidgety or restless that you have been moving around a lot more than usual: not at all 9. Thoughts that you would be better off or of hurting yourself in some way: not at all Total score: 0 Depression Screening Interpretation: Negative Depression Screening Done: Yes 00099 - PHQ-9 Billing: Yes Source: Developed by Drs. Nguyễn Garcia, Tesha Cedillo, Jamal Sotelo and colleagues, with an educational timothy from [employer]. Thrive Questionnaire Date Thrive assessed: 02/21/25 I am a: Patient What is your living situation today?: I have a steady place to live Within the past 12 months, did the food you bought not last and you didn't have the money to get more?: Never true Within the past 12 months, did you worry whether your food would run out before you got money to buy more?: Never true Do you have trouble paying for medicines?: No Do you have trouble getting transportation to medical appointments?: No Do you have trouble paying your heating and electricity bill?: No Do you have trouble taking care of your child, family member or friend?: No Do you have trouble with day-to-day activities such as bathing, preparing meals, shopping, managing finances, etc.?: No Are you currently unemployed and looking for a job?: No Are you interested in more education?: No Please select the resources that you would like help with: None Currently or been in a relationship where the following occur: No concerns reported THRIVE Score: 0 AUDIT C Alcohol Use Questionnaire (AUDIT-C) 1. How often do you have a drink containing alcohol?: Never 3. How often do you have six or more drinks on one occasion?: Never Total Score: 0 Score Reviewed/Action Taken: No AGUEDA-7 AMB Questionnaire AGUEDA-7 Date AGUEDA - 7 assessed: 02/21/25 Feeling nervous, anxious, or on edge: 1 = Several days Not being able to stop or control worryin = Not at all Worrying too much about different things: 0 = Not at all Trouble relaxin = Several days Being so restless that it is hard to sit still: 0 = Not at all Becoming easily annoyed or irritable: 1 = Several days Feeling afraid as if something awful might happen: 0 = Not at all Total AGUEDA-7 score (0-4 normal; 5-9 mild; 10-14 moderate; 15-21 severe): 3 Source: Developed by Drs. Nguyễn Garcia, Tesha Cedillo, Jamal Sotelo and colleagues, with an educational timothy from [employer]. AGUEDA-7 Assessment Billing AGUEDA-7 Assessment Tool: AGUEDA-7 Assessment 98859 Review of Systems Const All systems reviewed & are unremarkable except as noted in HPI and below Card Denies chest pain at rest, Denies chest pain with activity, Denies edema, Denies irregular heart rhythm, Denies claudication, Denies dyspnea, Denies dyspnea on exertion, Denies orthopnea, Denies paroxysmal nocturnal dyspnea and Denies slow heart rate Resp Denies cough, Denies dyspnea and Denies dyspnea on exertion Neuro Denies lack of coordination Physical exam (Primary Care) Vital Signs: Last Vital Signs Pulse 86 02/21/25 09:30 BP 118/60 02/21/25 09:30 Pulse Ox 98 02/21/25 09:30 Oxygen Delivery Method Room Air 02/21/25 09:30 BMI result Body Mass Index 46.9 Tobacco/Smoking Status: Tobacco use Status Tobacco use date assessed 02/21/25 02/21/25 09:36 Patient Tobacco Use Status Never used Tobacco 02/21/25 09:36 Tobacco use type 11/05/23 16:02 e-Cigarette/Vaping Use Never Used 02/21/25 09:36 PHQ-9: PHQ-9 Score PHQ-9: Total score 0 02/21/25 09:47 Depression Screening Interpretation: Negative Thrive Assessment: Date of Thrive Assessment Date Thrive assessed 02/21/25 02/21/25 09:36 Currently or been in a relationship where the following occur: No concerns reported HENMT Head: Yes normal to inspection, Yes normocephalic and Yes atraumatic Ears: external ears normal Eyes General: appearance normal, both eyes and all related structures Eyelids: Yes eyelids normal Conjunctivae: conjunctivae normal Neck Neck: Yes normal visual inspection and Yes supple Resp Effort & Inspection: normal respiratory effort Auscultation: clear to auscultation bilaterally Cardio Jugular venous distension: no JVD Rate: regular rate Rhythm: regular rhythm Heart sounds: S1 normal heart sound present and S2 normal heart sound present GI Inspection: Yes normal to inspection Palpation (GI): Soft to palpation and nontender Auscultation: normal bowel sounds Skin General skin exam: no rashes or lesions noted Neuro General: no focal motor deficits Extrem General: Yes full ROM Psych Appearance: grossly normal Coding Level of Care Code Est Pt Prev Care [id number]([id number]) Diagnoses Physical exam Z00.00 Mild major depression F32.0 Morbid obesity E66.01 Additional Codes AGUEDA-7 Assessment Billing - AGUEDA-7 Assessment Tool: AGUEDA-7 Assessment 31002 ([id number]) PHQ-9 - 10467 - PHQ-9 Billing: Yes ([id number]) Time Spent (min) 31 Assessment & Plan Assessment & Plan (1) Physical exam: Code(s): Z00.00 - Encounter for general adult medical examination without abnormal findings Category: Medical (2) Mild major depression: Code(s): F32.0 - Major depressive disorder, single episode, mild Category: Medical (3) Morbid obesity: Code(s): E66.01 - Morbid (severe) obesity due to excess calories Category: Medical Plan Plan Patient was informed and verbally consented to the use of an ambient scribe for clinic note documentation during this visit. 1. Encounter for general adult medical examination without abnormal findings Z00.00 The patient received a Tdap vaccination last month as part of her preventative care regimen. 2. Major depressive disorder, recurrent, mild F33.0 HCC 59 Continue SSRIs. 3. Morbid (severe) obesity due to excess calories E66.01 HCC 22 Start diet and exercise to reach BMI goal less than 30.
[2025-02-21 09:30] VITALS: BP 118/60; PULSE 86; O2SAT 98; BMI 46.9
--- OUTSIDE RECORDS SUMMARY | 2025-02-21 10:52 | XMS_ITS | Encounter Summary ---
Author Organization [facility] Address [address] [place] [address] Care Team Providers Care Truck Body Builder Name Role Phone Coni Griffiths MD Primary Care Provider Kaylee gonsalez Encounter Details Date Type Department Care Team Description 05/12/2023 Orders Only Medical Records [address] [place] [address] Abstract, Provider Social History Tobacco Use Types Packs/Day Years Used Date Smoking Tobacco: Never Smokeless Tobacco: Never Alcohol Use Standard Drinks/Week Comments Not Currently 0 (1 standard drink = 0.6 oz pur e alcohol) socially Alcohol Habits Answer Date Recorded How often do you have a drink containing alcohol ? Monthly or less 07/12/2020 How many drinks containing a lcohol do you have on a typical day when you are drinking? Not asked How often do you have six or more drinks on one occasion? Not asked Sex Assigned at Date Recorded Not on file Job Start Date Occupation Industry Not on file Not on file Not on file COVID-19 Exposure Response Date Recorded In the last 10 days, have yo u been in contact with someone who was confirmed or suspected to have Coronavirus/COVID-19? No / Unsure 04/28/2023 11:44 AM EST documented as of this encounter Plan of Treatment Not on file documented as of this encounter Procedures Procedure Name Priority Date/Time Associated Diagnosis Comments OUTSIDE LAB Routine 04/23/2023 documented in this encounter Results * OUTSIDE LAB (04/23/2023) Provider Abstract LAB documented in this encounter Visit Diagnoses Not on filedocumented in this encounter Care Teams Truck Body Builder Relationship Specialty Start Date End Date Coni Griffiths MD PCP - General Internal Medicine 11/07/14 documented as of this encounter
--- OUTSIDE RECORDS SUMMARY | 2025-02-21 10:52 | XMS_ITS | Clinical Summary ---
Author Organization 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 Active ondansetron (ZOFRAN-ODT) 4 MG disintegrating tabletIndications: Nausea and vomiting, unspecified vomiting type Take 1 tablet (4 mg total) by mouth every 8 (eight) hours as needed for nausea. 24 tablet 1 5 Active aspirin 81 MG EC tabletIndications: Chronic hypertension in Take 2 tablets (162 mg total) by mouth daily. 60 tablet 10 5 Active magnesium oxide 400 mg magnesium Cap Take 1 capsule by mouth every morning. 5 Active sertraline (ZOLOFT) 100 MG tablet Take 2 tablets (200 mg total) by mouth daily. 5 Active hydrOXYzine (VISTARIL) 25 MG capsule Take 1 capsule (25 mg total) by mouth every 6 (six) hours as needed for itching. 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 01/26/2025 Overview (02/15/2025): 33w: FRIDA 28.57, MVP 9.04 02/01 (33wks): FRIDA 24.96, MVP 8.87 02/15/25: FRIDA 20 Polyhydramnios defined as FRIDA >=24, or MVP >=8 L2, growth, and consider re-screening for diabetes amnio-reduction for maternal discomfort/dyspnea only If severe poly (FRIDA >=35 or MVP >=16) MFM consult and delivery at tertiary care (due to very high rate of anomalies) Weekly BPP starting at time of diagnosis EFW at diagnosis and q 4 weeks Induction at 39 weeks (optional for mild poly, FRIDA 25-29.9; recommended for moderate poly, 30-34.9) Assessment & Plan (02/15/2025 10:06 AM EDT): FRIDA is normal at 20 this week. BPP 8/8. Has repeat scheduled next week. Assessment & Plan (02/01/2025 10:43 AM EDT): Reviewed results of today's US - persistent mild poly but MVP 8.87, breech, 8 BPP. Planning RCS. Assessment & Plan (01/26/2025 5:09 PM EDT): 33w: FRIDA 28.57, MVP 9.04 Discussed weekly BPP's but she is already having them done so there will be no change upcoming visits. Elevated glucose tolerance test 12/27/2024 Overview (01/14/2025): 12/27: 1hr GTT 168 3hr GTT - all values wnl Assessment & Plan (01/03/2025 1:39 PM EDT): 3-hour GTT has been ordered. Carpal tunnel syndrome during 10/18/19 25 Assessment & Plan (01/26/2025 5:11 PM EDT): Reports it has been much better recently and only noticing mild tingling occasionally in the mornings. Assessment & Plan (12/27/2024 5:44 PM EDT): Reports carpal tunnel persists, but stable and coping okay. Assessment & Plan (10/28/2024 9:11 PM EDT): Wearing brace at night on left side. Does not seem to be worsening. Plan to try kinesiology tape at work. Assessment & Plan (10/17/2024 1:56 PM EDT): Has been wearing wrist braces at night. Asks about other interventions to try. We disc comfort measures and also rev possible use of kinesio taping especially if needing help with this during the day. Dysuria during in second trimester Overview (09/29/2024): Treated at 16w w macrobid BID x7 days for 100K of neg staph (vaginal bacteria) per ACOG d/t high colony count & symptomatic. Assessment & Plan (12/27/2024 5:45 PM EDT): Recommended that pt complete another urine culture, as we have not done one since she was treated earlier in for UTI. She has already voided and would like to leave this NV. Denies any urinary sx. Nausea and vomiting 08/04/2024 Assessment & Plan (08/04/2024 9:24 AM EST): Anticipatory guidance provided regarding nausea and vomiting in . We reviewed that nausea is a common symptom and is self-limited, usually resolving by mid- with or without treatment. We discussed that initial treatment involves reassurance and counseling on dietary and lifestyle changes, including eating consistently every 2-3 hours, bland foods, vinny tea or chews, gum, acupressure bands. We reviewed realistic expectations, and discussed that interventions may not completely resolve nausea. Tips for Managing Nausea in Early Vinny phillip, chews or tea Peppermint tea Eat small frequent meals- graze every 2-3 hours so your stomach is never empty. Avoid large meals. Eat slowly. Keep snacks (crackers, pretzels, nuts) by your bedside- sometimes eating a little bit before getting up will help a lot. Avoid foods that have strong odors. Sucking on a lemon or atka slice may help. Don't worry about adhering to a balanced diet unless you are diabetic; just eat whatever appeals to you until the nausea goes away. Slaughter foods often make nausea worse. Acupressure wristbands might help- sold in drug and health food stores. Acupuncture may also be helpful. Try drinking carbonated beverages between meals; wait for 30 minutes after eating to drink liquids. vitamins can make nausea worse; try taking them before bed, and if that doesn't help, stop taking them until your nausea goes away. Discuss with your provider. If you are not taking vitamins you should take one tablet of folic acid daily (0.4 mg which is 400micrograms per day) during the first trimester. Folic acid will not make nausea worse. Try vitamin B6 25mg three times a day can help and it's considered to be safe. Most importantly, nausea is very common . However, if you have severe vomiting and you aren't keeping anything down for 24 hours or more, give us a call and we'll help. She was instructed to call if she has severe N/V, is unable to keep food and fluid down x 24 hours, stops producing urine, feels faint or dizzy, or loses a significant amount of weight. Chronic hypertension in 08/04/2024 Overview (02/01/2025): CHTN in - not currently on any meds Baseline HELLP labs, P/C ratio or 24 hour urine - all wnl -Labs repeated at 24wks d/t sx - all wnl Begin baby ASA (162 mg daily) 12-14 wks No meds and nl BP: -Ultrasound for growth in third trimester (around 28- 32 wks) may repeat if clinically indicated On meds add q 4wks growth and wkly BPP at 32 wks If BP > 140/90 wkly BPP and growth q 4 wks Delivery: -No meds: 38-39+6 -Meds: 37-39+6 -Unstable: 36-37+6 Assessment & Plan (02/15/2025 10:12 AM EDT): Normotensive today. Assessment & Plan (02/01/2025 10:38 AM EDT): Normotensive. Denies PEC sx. Has weekly US scheduled. Assessment & Plan (01/26/2025 5:10 PM EDT): Repeat BP 130/68 used red cuff instead of navy blue that was used with 1st BP Assessment & Plan (01/03/2025 1:40 PM EDT): Her blood pressure is normal today. 24-hour urine is still pending. Assessment & Plan (12/28/2024 9:58 AM EDT): [facility] recommended 24 hour urine, ordered for patient today, though this was noted after her appt. Will have triage call to inform her with instructions. Reviewed recommendations for surveillance for CHTN on not meds. Will order growth ultrasounds needed in T3. Assessment & Plan (11/29/2024 12:44 PM EDT): C/o more frequent JUAREZ, which improves w/tylenol Staying very well hydrated Denies blurry vision or seeing spots, but endorses brief episodes of seeing something sparkly Denies RUQ pain Has been taking BP at home and has been normotensive Normotensive today Will collect pr:cr today as this has not been done yet & repeat PEC labs Encouraged to call if sx change/persist or w/elevated BP Had [facility] TMV consult this AM, but note not yet complete Has 28wk growth US scheduled - 12/20 at [place] Assessment & Plan (10/28/2024 9:11 PM EDT): Normotensive. Assessment & Plan (09/20/2024 2:02 PM EDT): B/P 120/80. H/o CHTN off of medication. Answered questions about testing in with this hx. Plan growth u/s at 28-32 weeks. Assessment & Plan (08/25/2024 11:58 AM EDT): Started on nifedipine during last <20 weeks and was diagnosed with CHTN. Her care was then transferred to [facility] at [facility] from [facility]. She was recommedned IOL at 36 weeks because her B/P kept increasing per pt and she reports she did not develop PEC. Not currently on medication for CHTN and her B/P today is normotensive. Baseline HELLP labs have been previously ordered for initial workup. Assessment & Plan (08/04/2024 1:22 PM EST): Discussed management and recommendations -MFM consult placed Endometriosis determined by laparoscopy 08/04/19 Obesity affecting in first trimester 0 08/04/2024 Overview (08/04/2024): Obesity in (BMI >30) BMI at Intake 44.9 Date Obesity plan of care discussed 08/04/24 Discussed at intake. Please discuss further in future visits. Pt is aware of policy Pre- BMI > 48 by 32 weeks' gestation, transfer to tertiary care Recommend daily baby aspirin (162 mg daily) if another risk factor is present (nulliparity, family h/o pre-eclampsia in mother or sister, age >= 35, IVF , previous with SGA, previous stillbirth, interval >= 10 years between pregnancies) First trimester screen for diabetes - HgbA1c or 1-hr glucose tolerance test Nutrition counseling 11-20lb weight gain surveillance: Pre- BMI 35.0-39.9, weekly testing at 36 weeks, EFW at 32 and 36 weeks Pre- BMI 40 or more, weekly testing at 34 weeks, EFW 32 and 36 weeks Induction only if indicated PP lovenox according to guidelines Assessment & Plan (02/01/2025 10:38 AM EDT): Has weekly scheduled Assessment & Plan (01/26/2025 5:12 PM EDT): EFW 43% AC 32% FRIDA 28.57 MVP 9.04 BPP 8/8 Assessment & Plan (12/27/2024 5:43 PM EDT): Will schedule out testing needed. Ultrasound orders placed. Assessment & Plan (09/20/2024 2:03 PM EDT): Answered questions about what to expect with ultrasounds in this . Disc planning anatomy u/s at 20 weeks and then we disc the recommended surveillance recommended for BMI. Assessment & Plan (08/25/2024 11:59 AM EDT): We reviewed BMI policy today and that we would recommend transfer if BMI > or equal to 48 at 32 weeks. Pt aware. We disc rec weight gain in . Assessment & Plan (08/04/2024 1:24 PM EST): Discussed BMI policy -Pt is addemant that she does not want to deliver at [facility] due to trauma from her demise 14months ago. -She is very much vested in doing whatever she has to do to be able to deliver at [facility] Current in first t rimester with history of during prior 08/04/2024 Overview (01/17/2025): 3 day IOL due to chronic HTN at 36wks. Baby was born alive on 08/16/2023. 12hrs later. 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 Pt wants to discuss further timing of delivery and will like a R/C/S Met with M for consult 11/29/24: M recommended -serial growth u/s in T3 at 28, 32, 36 weeks. -Weekly BPPs starting at 34 weeks -If B/Ps stable MFM would favor a 39 week delivery if all testing stable. Pt desires repeat c/s. Discussed at HR meeting on January 17: Group agreed to 38 week delivery. Assessment & Plan (02/01/2025 10:42 AM EDT): Awaiting RCS date. Has weekly US scheduled. Assessment & Plan (12/28/2024 10:00 AM EDT): Will ensure testing scheduled out this visit. Orders placed. Growth done at 27w5d was 32nd percentile, done through [facility]. Please see anxiety notes this visit under problem list - pt inquires about scheduling repeat c/s at 37 weeks. She is interested in this d/t her anxiety around h/o demise. [facility] had recommended repeat c/s at 39 weeks. Advised consult with MD to discuss, will meet with MD next week. Assessment & Plan (11/04/2024 4:13 PM EDT): Pt checked in for virtual visit, but then not in waiting room. Called pt LMTCB, did not hear from her. Will reschedule Assessment & Plan (10/28/2024 9:10 PM EDT): Has MFM consult scheduled. Assessment & Plan (09/20/2024 2:25 PM EDT): MFM consulted was requested after last visit but was delayed as records from [facility] not received. Pt reports she had virtual visit with Dr. Brewster but do not see note for this. Will confirm with [facility] if there is need for MFM consult now that records available. Assessment & Plan (08/25/2024 12:04 PM EDT): Pt reports in her IOL she received one dose of misoprostol, then received pitocin and balloon. Reports her water had been broken for an extended time during IOL process. She eventually had c/s for intolerance under general anesthesia. Reports her epidural stopped working. Reports that pt had read in hospital documents that cause of stated encephalopathy and metabolic acidosis. Explains that an autopsy report included chorio. Pt has signed OSWALD today for [facility] and [facility] records from prior pregnancies/deliveries. MFM consult already placed and scheduled. Assessment & Plan (08/04/2024 1:27 PM EST): 3 day IOL due to chronic HTN at 36wks. Baby was born alive. 12hrs later. 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 Pt wants to discuss further timing of delivery and will like a R/C/S History of delivery 08/04/2024 Overview (11/29/2024): Date of surgery: 14 months ago at [facility] Reason for prior : Incision type: Records requested/reviewed: Contraindications to TOLAC include > 2 prior births, prior uterine rupture or dehiscence, prior transfundal incision (classical, T, or J incisions; myomectomy with incision into uterine cavity or by surgeon's discretion), interpregnancy interval < 6 months Anterior placenta ? no If anterior, schedule level 2 US to assess for signs of accreta Delivery route counseling: Preferred mode of delivery: REPEAT C/S Consent signed: If calculator score <60%, schedule MD consult at 35-37 weeks Calculator: [email or web address] culat or Assessment & Plan (02/15/2025 10:12 AM EDT): Repeat has been requested for 38 weeks but Leonila has not been contacted. Message sent to receptionist scheduler. Assessment & Plan (01/26/2025 5:09 PM EDT): C/S order placed for delivery at 38w (03/02/25) Assessment & Plan (01/03/2025 1:40 PM EDT): Has opted for repeat . She would like to have this done closer to 37 weeks as opposed to 39 given her obstetrical medical history. This may not be unreasonable but will discuss at next high risk meeting. Assessment & Plan (08/25/2024 12:04 PM EDT): Plans repeat. Assessment & Plan (08/04/2024 1:29 PM EST): -Had a P C/S due to intolerance of labor. Baby 12hrs later -Will need records from [facility] -Planning a repeat CS Anxiety and depression 08/04/2024 Overview (12/27/2024): Hx of anxiety and depression. Takes 150mg of Zoloft. Does not have a therapist. At 28 week visit pt reporting not coping well with increased anxiety, very tearful through visit. PCP had increased sertraline to 175mg daily, but she was feeling uneasy about increasing r/t use in . Disc new information from transfer records that pt had not previously discussed about mental health challenges last with anxiety and depression -- reports she had been sectioned in her last as she had called her OB office with concerns and then they were not able to reach her when they called back. She was inpatient for 2-3 days in [place] and then was transferred to [facility] for about a day and discharged. Had been on a list of an inpatient mental health program but then [facility] provider felt this was not needed. Assessment & Plan (02/01/2025 10:44 AM EDT): Feeling well, stable Assessment & Plan (01/26/2025 5:14 PM EDT): Has therapy set up for next week with [facility] Assessment & Plan (12/28/2024 9:38 AM EDT): At 28 week visit pt reporting not coping well with increased anxiety, very tearful through visit. PCP had increased sertraline to 175mg daily, but she was feeling uneasy about increasing r/t use in . Disc new information from transfer records that pt had not previously discussed about mental health challenges last with anxiety and depression -- reports she had been sectioned in her last as she had called her OB office with concerns and then they were not able to reach her when they called back. She was inpatient for 2-3 days in [place] and then was transferred to [facility] for about a day and discharged. Had been on a list of an inpatient mental health program but then [facility] provider felt this was not needed. Pt reports it has been difficult coping with increased anxiety. We disc evidence on use of sertraline in and the possible short term side effects for , encouraged that she increase to 175mg daily as recently increased by her PCP. She is feeling some anxiety surrounding upcoming delivery timing, would strongly prefer 37 week delivery as she is concerned for risk of stillbirth as gestation progresses. M recommended timing of delivery at 39 weeks of repeat c/s, but pt really would prefer sooner giving her h/o demise and her anxiety. Will schedule MD visit for further consult on timing of c/s. For acute heightened episodes of anxiety we disc trying vistaril PRN and patient is interested in trying this, rx sent. She denies any SI, disc importance of presenting to ED with any SI. Partner works from home and is with her often. Encouraged possibly reaching out to [facility], as she is connected with them following her recent loss, she will consider. She accepts referral for a new therapist, referral sent. Assessment & Plan (08/25/2024 12:05 PM EDT): Tearful today during visit discussing last and . Reports mood has been stable and coping well with current med and supports. Assessment & Plan (08/04/2024 1:40 PM EST): Hx of anxiety and depression. Takes 150mg of Zoloft. Does not have a therapist. Supervision of high risk in third trim jass 08/01/2024 Overview (02/01/2025): FOB u/s at 10w5d showed IUP measuring ahead 7 days. IMTIAZ not changed as not greater than 7 days. CNM OB-CMI score: 5 [08/04/2024] Group PN care? * screening - neg NIPT Baby ASA? 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 Has been feeling really well lately! Just has some trouble sleeping at times. Leonila states she signed tubal consent, but I don't see this in her chart - msg to [facility] to look into this. Baby has been active. GBS today. Assessment & Plan (02/01/2025 10:41 AM EDT): Leonila is a 34yo at 33w6d here w/Tae - active baby; denies VB, LOF Feeling well w/o complaint; endorses irregular BH ctnxs Interested in salpingectomy w/RCS. Does not think she desires future . Warning signs & calling guidelines reviewed BRADLEY jay/ in 1wk to discuss plan for RCS/salpingectomy Assessment & Plan (01/26/2025 5:18 PM EDT): Leonila is here with her partner Tae. Discussed new Polyhydramnios dx (see that problem) Tdap today. EPDS 6, reviewed supports available, she has therapy starting next week with [facility]. Reviewed comfort measures. Reviewed steps to take toward optimal health in . Reviewed s/s PTL, danger signs, when/how to call. Assessment & Plan (01/03/2025 1:42 PM EDT): She notes good movement. She denies any vaginal bleeding, leakage of fluid, or regular tractions. Overall, she is doing well. Assessment & Plan (12/28/2024 9:37 AM EDT): Leonila is a 34yo at 28w5d who presents to routine OB visit. Here with her partner. Leonila was visibly upset at the start of the appointment. Tearful. Reports she recently was evaluated at [facility] for contractions and questions of LOF. She had decided to present there instead of [facility] because she felt dismissed by her concerns when she called for triage that day at [facility]. She said to me today, I'll go to [facility] if you want me to transfer . I validated her concerns about feeling dismissed and was sorry that had happened for her. I reassured her we are not recommending that she transfer to [facility]. Much of today's visit focused on current increase in anxiety, see full note. Pt is due to complete GTT/CBC/RPR and plans to do so after today's visit. Will plan RTO in 1 week to f/u on anxiety and for pt to have chance to discuss with MD her questions about timing of repeat c/s. Assessment & Plan (11/29/2024 12:48 PM EDT): Leonila is a 34yo at 24w5d here today w/partner, Tae - active baby; denies VB, LOF, ctxns C/o fatigue, JUAREZ (see cHTN problem), BLE edema - compression socks rx provided Carpel tunnel has improved w/wrist braces Prepped for Tdap NV 3T labs ordered for NV Warning signs & calling guidelines reviewed BRADLEY in 4wks or prn Assessment & Plan (10/28/2024 9:10 PM EDT): Leonila is a 34yo at 19w5d who presents to routine OB visit. Here with partner and son. She reports to be doing fairly well. 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 Round, moveable lump noted on exam of right breast at 5-6 o' clock. Will plan breast u/s, ordered. Pt reports biopsy of this area last December that confirmed fibroadenoma. Level II anatomy planned at [place], scheduled for next week. Answered questions about support persons at time of c/s. Rev when to call. Will plan CNM visit after u/s to disc findings next week, pt to schedule today. Assessment & Plan (10/17/2024 1:57 PM EDT): Leonila is a 34yo at 18w4d who presents to add-on visit for FHR check today. Reports she has been feeling flutters of FM on/off but was concerned she hasn't felt any movement for the past couple of days. +FHR 150s by doppler, abundance of movement audible by doppler, pt reassured. States that some of her anxiety around this is r/t h/o loss, Bereaved [employer] Day was yesterday which felt a bit hard for her. We reviewed what to expect with FM at this gestational age. She already has a routine OB visit scheduled for next week, so will keep that appt for another FHR check as well and further check in. Level II is scheduled for 11/02/24. Assessment & Plan (09/29/2024 10:07 AM EDT): Pt reports some off & on lower abdominal pain, intermittent dysuria that has been happening x2w, not getting worse, not getting better. Did a routine OB UC last week that showed contamination. Dropped off a UCC this morning, UA w trace leuks otherwise negative, UC pending. Advised pt to push fluids,take Azo and plan close follow- up. Plan to treat based on results in 2 days, but if symptoms worsen despite pushing fluids, pt to call. She agrees with plan. Assessment & Plan (09/20/2024 2:05 PM EDT): Leonila is a 34yo at 14w5d who presents to routine OB visit. Here with Tae. Reports to be feeling well, nausea has mostly resolved! Disc plan for anatomy u/s, will confirm with MFM if they recommended level II based on demise hx. RTO 4 wks for CNM visit. Assessment & Plan (08/04/2024 1:38 PM EST): Billie is a 34 y.o. at 8w0d states she feels well today. Denies any concerns at this time. Denies any LOF/Vaginal bleeding/Ucs. -Added to HR list -Advised on quickening and what to expect in the upcoming weeks -Review warning signs and when/how to contact midwives -Early US ordered. Advised that our OBs review all of our US and may make further recommendations. -Reviewed lab work that will be drawn at [facility] including genetic testing -Oriented to the practice and patient portal -Advised on care structure Alpha thalassemia silent carrier 03/19/2023 Overview (12/02/2024): Horizon 14 Panel Positive: Silent Carrier for Alpha Thalassemia (aa/a-). 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 Depending on carrier status of the patient's partner, this couple may be at increased risk to have a child with Hemoglobin H Disease. Carrier screening of the patient's partner is suggested. Assessment & Plan (12/28/2024 9:49 AM EDT): Partner has not completed this testing, but would be interested in doing so if this is recommended. This CNM having difficulty locating record of pt's past Horizon carrier panel in chart. Will have CNM who added this to chart to confirm this. Pt's recent hemoglobin electrophoresis was normal. History of bilateral breast reduction surgery Overview (12/02/2024): 2014 Estimated Date of Delivery Comme nts Yes 03/16/2025 Based on last me nstrual period of 06/09/2024 Resolved Problems Problem Noted Date Diagnosed Date Resolved Date Infection of obstetric surgical wound 12/02/2024 12/02/2024 Insomnia 12/02/2024 12/02/2024 Encounters Date Type Department Care Team Description 02/16/2025 Telephone [facility] [address] [place] [address] [place] [address] Jane Mcbride, JOSH Referral; Breast Imaging 02/15/2025 9:30 AM EDT Routine [facility] [address] [place] [address] [place] [address] Rowena Sandoval CNM GA: [id number] 02/15/2025 8:27 AM EDT - 02/15/2025 11:59 PM EDT Hospital Encounter [facility] [address] [place] [address] Sheela See CNM Discharge Disposition: Home or Self Care 02/15/2025 Telephone [facility] [address] [place] [address] [place] [address] Rowena Sandoval CNM 02/08/2025 2:30 PM EDT Routine [facility] [address] [place] [address] [place] [address] Nova Pierre MD GA: [id number] 02/08/2025 1:01 PM EDT - 02/08/2025 11:59 PM EDT Hospital Encounter [facility] [place], OB Ultrasound [address] [place] [address] Sheela See CNM Discharge Disposition: Home or Self Care 02/03/2025 Orders Only [facility] - Virtual Department [address] [place] [address] Meaghan Ruby CNM 02/03/2025 Telephone [facility] [address] [place] [address] [place] [address] Sonal carvajal, Jane Mock, DISTRIBUTION ESTIMATOR Breast Imaging Results/Recommendati ons 02/02/2025 2:08 PM EDT - 02/02/2025 11:59 PM EDT Hospital Encounter [facility] - [address] [place] [address] Sheela See CNM Discharge Disposition: Home or Self Care 02/01/2025 10:10 AM EDT Routine [facility] [address] [place] [address] [place] [address] Meaghan Ruby CNM GA: [id number] 02/01/2025 8:30 AM EDT - 02/01/2025 11:59 PM EDT Hospital Encounter [facility] [address] [place] [address] Sheela See CNM Discharge Disposition: Home or Self Care 01/26/2025 3:30 PM EDT Routine [facility] [address] [place] [address] [place] [address] Rowena Sandoval CNM GA: [id number] 01/26/2025 2:00 PM EDT - 01/26/2025 11:59 PM EDT Hospital Encounter [facility] [place], OB Ultrasound [address] [place] [address] Sheela See CNM Discharge Disposition: Home or Self Care 01/11/2025 Telephone [facility] Obstetrics - Virtual Department [address] [place] [address] Maribell Grady MD 01/10/2025 11:45 PM EDT - 01/11/2025 1:50 AM EDT Hospital Encounter [facility] Childbirth Center [address] [place] [address] Maribell Grady MD Discharge Disposition: Home or Self Care 01/10/2025 Orders Only [facility],Outside Imaging [address] [place] [address] System, Provider Not In, PhD 01/09/2025 Ancillary Orders [facility],Outside Imaging [address] [place] [address] Unknown, Unknown, 01/09/2025 Ancillary Orders [facility],Outside Imaging [address] [place] [address] Unknown, Unknown, 01/09/2025 Ancillary Orders [facility],Outside Imaging [address] [place] [address] Unknown, Unknown, 01/09/2025 Ancillary Orders [facility],Outside Imaging [address] [place] [address] Unknown, Unknown, 01/05/2025 9:40 AM EDT - 01/05/2025 11:59 PM EDT Hospital Encounter [facility] Laboratory [address] [place] [address] Sheela See CNM Discharge Disposition: Home or Self Care 01/04/2025 Ancillary Orders [facility], [facility] [address] [place] [address] Sheela See CNM Mass of right breast, unspecified quadrant (Primary Dx); Fibroadenoma of right breast 01/04/2025 Ancillary Orders [facility] [address] [place] [address] Sheela See CNM Supervision of high risk in first trimester (Primary Dx); Carpal tunnel syndrome during ; Fibroadenoma of right breast; Chronic hypertension in ; Current in first trimester with history of during prior ; Mass of right breast, unspecified quadrant 01/03/2025 12:00 PM EDT Routine [facility] [address] [place] [address] Nicholas Araujo MD GA: [id number] 12/28/2024 Telephone [facility] [address] [place] [address] [place] [address] Sheela See CNM 12/28/2024 Telephone [facility] [address] [place] [address] [place] [address] Sheela See CNM OB Lab Testing 12/28/2024 Telephone [facility] [address] [place] [address] [place] [address] Sheela See CNM 12/28/2024 Telephone [facility] [address] [place] [address] [place] [address] Sheela See CNM 12/27/2024 9:57 AM EDT - 12/27/2024 11:59 PM EDT Hospital Encounter [facility] [place] [address] Meaghan Ruby CNM Discharge Disposition: Home or Self Care 12/27/2024 9:00 AM EDT Routine [facility] [address] [place] [address] Sheela See CNM GA: [id number] 12/27/2024 Orders Only [facility] [address] [place] [address] [place] [address] Meaghan Ruby CNM Elevated glucose tolerance test (Primary Dx) 12/14/2024 Telephone [facility] [address] [place] [address] Linda Fernandez RN [facility] 12/12/2024 Telephone [facility] Obstetrics - Virtual Department [address] [place] [address] Shelea See CNM 11/29/2024 12:45 PM EDT - 11/29/2024 11:59 PM EDT Hospital Encounter [facility] [address] [place] [address] Meaghan Ruby CNM Discharge Disposition: Home or Self Care 11/29/2024 11:50 AM EDT [facility] [address] [place] [address] Meaghan Ruby CNM GA: 24w5d 11/29/2024 8:50 AM EDT Telemedicine [facility] Women's Health MFM Program [address] [place] [address] Rafaela Josue MD, MPH Current in first trimester with history of during prior (Primary Dx); Chronic hypertension in ; History of delivery; Anxiety and depression 11/28/2024 Telephone [facility] [address] [place] [address] Myranda Garcia LPN OB no feeling well 10/25/2024 Procedure Pass [address] [place] [address] from Last 3 Months Immunizations Immunization Administration Dates Next Due Tdap 01/26/2025 Family History Medical History Relation Comments Hypertension Father Fibromyalgia Mother Hypertension Sister 1 No Known Problems Sister 2 Relation Status Comments Father Alive Mother Alive Sister 1 Alive Sister 2 Alive Social History Tobacco Use Types Packs/Day Years [...] Orientation Straight 10/11/2020 11 :41 AM EDT Last Filed Vital Signs Vital Sign Reading Time Taken Comments Blood Pressure 110/70 02/15/2025 9:18 AM EDT Pulse 78 01/11/2025 12:01 AM EDT Temperature 36.8 C (98.2 F) 01/11/2025 12:01 AM EDT Respiratory Rate 18 01/11/2025 12:01 AM EDT Oxygen Saturation 98% 01/11/2025 12:01 AM EDT Inhaled Oxygen Concentration - - Weight 108.4 kg (239 lb) 02/15/2025 9:18 AM EDT Height 152.4 cm (5') 01/11/2025 12:24 AM EDT Body Mass Index 46.68 01/11/2025 12:24 AM EDT Plan of Treatment Upcoming Encounters Date Type Department Care Team (Late st Contact Info) Description 02/23/2025 11:00 AM EDT Appointment [facility] [place] [place] [address] [place] [address] Sheela See CNM [address] [facility], [address] [place] [address] 02/23/2025 12:00 PM EDT Office Visit [facility] [address] [place] [address] Nicholas Araujo MD [address] [facility], [address] [place] [address] 03/02/2025 Hospital Encounter [facility] [address] [place] [address] Nicholas Araujo MD [address] [place] [address], [address] [place] [address] 03/02/2025 Procedure Pass [facility] [address] [place] [address] 04/10/2025 9:30 AM EDT Office Visit [facility] [address] [place] [address] Sheela Cruz MD [address] [facility], 2nd [place] [address] [email or web address] Scheduled Procedures Name Priority Associated Diagnoses Date/Ti me SECTION REPEAT Supervision of high risk in third trimester History of delivery Health Maintenance Due Date Last Done Comments DEPRESSION SCREENING 2004 PAP SMEAR 2013 INFLUENZA VACCINE (#1) 2025 , 07/10/2016, 03/28/2016 COVID-19 VACCINE (2024-2 6 season) 2025 05/24/2021, 10/26/2020, 10/05/2020 RSV VACCINE (1 - Risk pregna nt 1-dose series) 02/13/2025 BLOOD PRESSURE 08/15/2025 02/15/2025 Adult Td,Tdap Booster 01/26/2035 01/26/2025 , 06/30/2023, 12/18/2016 HEPATITIS C SCREENING Completed 08/23/2024 HIV ONE-TIME SCREENING (18-6 5 YEARS) Completed 08/23/2024 SMOKING STATUS SCREENING (On ce After 26 Yrs) Completed 01/26/2025 HEPATITIS A VACCINES Aged Out No long er eligible based on patient's age to complete this topic HIB VACCINES Aged Out No longer eligi ble based on patient's age to complete this topic MENINGOCOCCAL VACCINES (ACWY) Aged Out No longer eligible based on patient's age to complete this topic MENINGOCOCCAL VACCINES (B) Aged Out N o longer eligible based on patient's age to complete this topic PNEUMOCOCCAL VACCINES (0-49 years) Aged Out No longer eligible b ased on patient's age to complete this topic Medical Devices Not on file Procedures Procedure Name Priority Date/Time Associated Diagnosis Comments GROUP B STREP CULTURE (GBS) Routine 02/15/2025 10:00 AM EDT Supervision of high risk in third trimester US OB BIOPHYSICAL PROFILE WITH OB LIMITED Routine 02/15/2025 8:54 AM EDT Supervision of high risk in first trimester Chronic hypertension in Obesity affecting in first trimester, unspecified obesity type Current in first trimester with history of during prior US OB BIOPHYSICAL PROFILE WITH OB LIMITED Routine 02/08/2025 1:31 PM EDT Supervision of high risk in first trimester Chronic hypertension in Obesity affecting in first trimester, unspecified obesity type Current in first trimester with history of during prior BI US BREAST LIMITED (RIGHT) Routine 02/02/2025 2:43 PM EDT Fibroadenoma of right breast Mass of right breast, unspecified quadrant US OB BIOPHYSICAL PROFILE WITH OB LIMITED Routine 02/01/2025 9:06 AM EDT Supervision of high risk in first trimester Chronic hypertension in Obesity affecting in first trimester, unspecified obesity type Current in first trimester with history of during prior US OB BIOPHYSICAL PROFILE WITH MEASUREMENTS Routine 01/26/2025 2:47 PM EDT Supervision of high risk in first trimester Chronic hypertension in Obesity affecting in first trimester, unspecified obesity type Current in first trimester with history of during prior TOTAL PROTEIN CREATININE RATIO, RANDOM URINE STAT 01/11/2025 12:50 AM EDT Hold Specimen In Blood Bank (No Testing Performed) Routine 01/11/2025 12:12 AM EDT CREATININE/EGFR STAT 01/11/2025 12:12 AM EDT ALANINE AMINOTRANSFERASE (ALT) STAT 01/11/2025 12:12 AM EDT ASPARTATE AMINOTRANSFERASE (AST) STAT 01/11/2025 12:12 AM EDT CBC STAT 01/11/2025 12:12 AM EDT OUTSIDE PATHOLOGY Routine 01/10/2025 1:1 6 PM EDT GLUCOSE TOLERANCE TEST, 3 HR Routine 01/05/2025 9:40 AM EDT Elevated glucose tolerance test TIMED URINE DATA Routine 01/05/2025 7:30 AM EDT TOTAL PROTEIN, 24 HR URINE Routine 01/05/2025 7:30 AM EDT Chronic hypertension in CBC Routine 12/27/2024 10:11 AM EDT Supervision of high risk in first trimester GLUCOSE TOLERANCE TEST, 1 HR Routine 12/27/2024 10:11 AM EDT Supervision of high risk in first trimester SYPHILIS ANTIBODY SCREEN ASSAY Routine 12/27/2024 10:11 AM EDT Supervision of high risk in first trimester ASPARTATE AMINOTRANSFERASE (AST) Routine 11/29/2024 1:33 PM EDT Supervision of high risk in first trimester Chronic hypertension in ALANINE AMINOTRANSFERASE (ALT) Routine 11/29/2024 1:33 PM EDT Supervision of high risk in first trimester Chronic hypertension in CREATININE/EGFR Routine 11/29/2024 1:33 PM EDT Supervision of high risk in first trimester Chronic hypertension in CBC Routine 11/29/2024 1:33 PM EDT Supervision of high risk in first trimester Chronic hypertension in TOTAL PROTEIN CREATININE RATIO, RANDOM URINE Routine 11/29/2024 12:40 PM EDT Supervision of high risk in first trimester Chronic hypertension in HEPATITIS C ANTIBODY, QUALITATIVE Routine 08/23/2024 3:24 PM EDT Encounter for supervision of normal in first trimester, unspecified Need for hepatitis C screening test from Last 3 Months or Most Recently Relevant to Health Maintenance Results * Group B strep culture (GBS) (02/15/2025 10:00 AM EDT) Special Requests None 02/15/2025 10:00 AM EDT [facility] Group B Strep Culture NEGATIVE FOR MRSA (Methicillin Resistant S.aureus) 02/17/2025 2:27 PM EDT [facility] Other (Vaginal/rectal combination) 02/15/2025 10:00 AM EDT 02/15/2025 3:29 PM EDT Comment:VAGINAL RECTAL COMBI NATION SWAB us Rowena Sandoval CNM MICROBIOLOGY - GENERAL ORDERABLE S Final Result [address] [address] * US OB BIOPHYSICAL PROFILE WITH OB [...] and normal. Tech Comments: Carlton . BPP /. Active fetus with normal fluid x2. Polyhydramnios [...] IUP in vertex presentation with normal testing. us Sheela See CNM IMG US OBSTETRIC Fi nal Result * US OB BIOPHYSICAL PROFILE WITH OB LIMITED (02/08/2025 1:31 PM EDT) Anatomical Region Laterality Modality Abdomen, Pelvis, Uterus/Adnexa U ltrasound 02/08/2025 1:32 PM EDT Impressions 02/11/2025 5:11 PM EDT Normal BPP. The FRIDA is increased and consistent with polyhydramnios. The bowel appears dilated, measuring 13 mm. This is stable from prior study. Recommend continued weekly surveillance. Narrative 02/11/2025 5:11 PM EDT Procedure: US OB BIOPHYSICAL PROFILE WITH OB LIMITED 02/08/2025 1:05 PM US Indications: Obesity Complicating ; history of demise, CHTN not on meds. Polyhydramnios, BPP Comparison: No relevant recent comparisons. Maternal age: 34 years. Technique: Transabdominal scan was performed. Color Doppler and M-mode imaging was performed to assess vascularity. FINDINGS: number: 1 position: Vertex Placental position: posterior Placental grade: 3 Heart Rate: 129.0 bpm Cervix: The cervix is suboptimally visualized secondary to head position. Reported LMP: 06/09/2024 Gestational Age by LMP: 34 weeks 6 day(s) Established IMTIAZ: 03/16/2025 Quads: Amniotic Sac Quad 1 - 7.56 cm Amniotic Sac Quad 2 - 4.48 cm Amniotic Sac Quad 3 - 8.64 cm Amniotic Sac Quad 4 - 7.50 cm Amniotic Fluid Index - 28.18 cm Biophysical Profile Score: Fluid: 2 Breathin Movement: 2 Tone: 2 Total: 01/20 Limited Assessment: The stomach, kidneys, urinary bladder and four-chamber heart were evaluated and normal. Tech Comments: Carlton . BPP 01/20. Active fetus. Polyhydramnios noted with an FRIDA = 28 cm. MVP fluid = 8.6 cm. Prominent bowel seen = 1.26 cm compared to 1.4 cm on prior scan. Procedure Note Sid Arciniega MD - 02/11/2025 Procedure: US OB BIOPHYSICAL PROFILE WITH OB LIMITED 02/08/2025 1:05 PM US Indications: Obesity Complicating ; history of neonataldemise, CHTN not on meds. Polyhydramnios, BPP Comparison: No relevant recent comparisons. Maternal age: 34 years. Technique: Transabdominal scan was performed. Color Doppler and M-modeimaging was performed to assess vascularity. FINDINGS: number: 1 position: Vertex Placental position: posterior Placental grade: 3 Heart Rate: 129.0 bpm Cervix: The cervix is suboptimally visualized secondary to headposition. Reported LMP: 06/09/2024 Gestational Age by LMP: 34 weeks 6 day(s) Established IMTIAZ: 03/16/2025 Quads: Amniotic Sac Quad 1 - 7.56 cm Amniotic Sac Quad 2 - 4.48 cm Amniotic Sac Quad 3 - 8.64 cm Amniotic Sac Quad 4 - 7.50 cm Amniotic Fluid Index - 28.18 cm Biophysical Profile Score: Fluid: 2 Breathin Movement: 2 Tone: 2 Total: 01/20 Limited Assessment: The stomach, kidneys, urinary bladder andfour- chamber heart were evaluated and normal. Tech Comments: Carlton . BPP 01/20. Active fetus. Polyhydramnios noted with anAFI = 28 cm. MVP fluid = 8.6 cm. Prominent bowel seen = 1.26 cm comparedto 1.4 cm on prior scan. IMPRESSION: Normal BPP. The FRIDA is increased and consistent with polyhydramnios. Thefetal bowel appears dilated, measuring 13 mm. This is stable from priorstudy. Recommend continued weekly surveillance. us Sheela See [facility] IMG US OBSTETRIC Fi nal Result * (ABNORMAL) BI US BREAST LIMITED (RIGHT) (02/02/2025 2:43 PM EDT) Anatomical Region Laterality Modality Breast Right, Breast Bilateral Right U ltrasound 02/02/2025 3:06 PM EDT Impressions 02/02/2025 3:14 PM EDT Moderate increase in size of biopsy-proven fibroadenoma in the 5:00 position of the right breast which now measures 5 cm in maximal diameter. Surgical consultation is recommended. There is now a 2.3 cm mass with similar characteristics visualized in the 5:00 position. This is likely a second fibroadenoma. BI-RADS 4A SUSPICIOUS Discussed in detail with the patient immediately following the ultrasound. Narrative 02/02/2025 3:14 PM EDT BI US BREAST LIMITED (RIGHT) Additional patient information: Enlarging lump lower inner right breast in the region of previous biopsy fibroadenoma. The patient reportedly is 32 weeks . TECHNIQUE: Targeted right breast ultrasound was performed. COMPARISON: Comparison is made with relevant prior imaging. FINDINGS: Targeted right ultrasound was performed in the area of clinical concern as indicated by the patient. The homogenous smoothly marginated hypoechoic mass in the 5:00 position 6 cm deep to the nipple correlating with biopsy-proven fibroadenoma has increased in size. It currently measures 5.1 x 4.3 x 2.3 cm compared with 3.1 x 2.3 x 1.1 cm on 04/12/2024. Orientation remains parallel. No other significant change. A second smoothly marginated hypoechoic mass with similar characteristics is now noted in the 7:00 position 5 cm deep to the nipple. It measures 2.0 x 1.9 x 0.9 cm and mildly enhances sound posteriorly. It is located approximately 2.3 cm from the larger palpable mass in the 5:00 position. No other sonographic abnormality. Procedure Note Cristiano Cortez MD - 02/02/2025 BI US BREAST LIMITED (RIGHT) Additional patient information: Enlarging lump lower inner right breast inthe region of previous biopsy fibroadenoma. The patient reportedly is 32weeks . TECHNIQUE: Targeted right breast ultrasound was performed. COMPARISON: Comparison is made with relevant prior imaging. FINDINGS: Targeted right ultrasound was performed in the area of clinical concern asindicated by the patient. The homogenous smoothly marginated hypoechoicmass in the 5:00 position 6 cm deep to the nipple correlating withbiopsy-proven fibroadenoma has increased in size. It currently measures5.1 x 4.3 x 2.3 cm compared with 3.1 x 2.3 x 1.1 cm on 04/12/2024.Orientation remains parallel. No other significant change. A secondsmoothly marginated hypoechoic mass with similar characteristics is nownoted in the 7:00 position 5 cm deep to the nipple. It measures 2.0 x 1.9x 0.9 cm and mildly enhances sound posteriorly. It is locatedapproximately 2.3 cm from the larger palpable mass in the 5:00 position.No other sonographic abnormality. IMPRESSION: Moderate increase in size of biopsy-proven fibroadenoma in the 5:00position of the right breast which now measures 5 cm in maximal diameter.Surgical consultation is recommended. There is now a 2.3 cm mass withsimilar characteristics visualized in the 5:00 position. This is likely asecond fibroadenoma. BI-RADS 4A SUSPICIOUS Discussed in detail with the patient immediately following theultrasound. us Sheela See CNM IMG US BREAST Fin al Result * US OB BIOPHYSICAL PROFILE WITH OB LIMITED (02/01/2025 9:06 AM EDT) Anatomical Region Laterality Modality Abdomen, Pelvis, Uterus/Adnexa U ltrasound 02/01/2025 9:08 AM EDT Impressions 02/01/2025 6:51 PM EDT Single live IUP in breech presentation with mild polyhydramnios and a BPP of 8/8. Narrative 02/01/2025 6:51 PM EDT Procedure: US OB BIOPHYSICAL PROFILE WITH OB LIMITED 02/01/2025 8:41 AM US Indications: Obesity Complicating ; Poor OB hx, CHTN not on meds. Comparison: No relevant recent comparisons. Maternal age: 34 years. Technique: Transabdominal scan was performed. Color Doppler and M-mode imaging was performed to assess vascularity. FINDINGS: number: 1 position: Breech. Placental position: Posterior. Placental grade: 3 Heart Rate: 134.0 bpm Cervix: The cervix is suboptimally visualized secondary to position. Gestational Age by LMP: 33 weeks 6 day(s) Established IMTIAZ: 33 weeks 6 day(s) Quads: Amniotic Sac Quad 1 - 8.87 cm Amniotic Sac Quad 2 - 6.55 cm Amniotic Sac Quad 3 - 4.53 cm Amniotic Sac Quad 4 - 5.01 cm Amniotic Fluid Index - 24.96 cm Biophysical Profile Score: Fluid: 2 Breathin Movement: 2 Tone: 2 Total: 8 Limited Assessment: The stomach, kidneys, urinary bladder and four-chamber heart were evaluated and normal. Tech Comments: Carlton . BPP 01/20. Active fetus with FRIDA >25 cm and MVP >8 cm. Breech position today. Procedure Note Nicholas Araujo MD - 02/01/2025 Procedure: US OB BIOPHYSICAL PROFILE WITH OB LIMITED 02/01/2025 8:41 AM US Indications: Obesity Complicating ; Poor OB hx, CHTN not onmeds. Comparison: No relevant recent comparisons. Maternal age: 34 years. Technique: Transabdominal scan was performed. Color Doppler and M-modeimaging was performed to assess vascularity. FINDINGS: number: 1 position: Breech. Placental position: Posterior. Placental grade: 3 Heart Rate: 134.0 bpm Cervix: The cervix is suboptimally visualized secondary to fetalposition. Gestational Age by LMP: 33 weeks 6 day(s) Established IMTIAZ: 33 weeks 6 day(s) Quads: Amniotic Sac Quad 1 - 8.87 cm Amniotic Sac Quad 2 - 6.55 cm Amniotic Sac Quad 3 - 4.53 cm Amniotic Sac Quad 4 - 5.01 cm Amniotic Fluid Index - 24.96 cm Biophysical Profile Score: Fluid: 2 Breathin Movement: 2 Tone: 2 Total: 8 Limited Assessment: The stomach, kidneys, urinary bladder andfour- chamber heart were evaluated and normal. Tech Comments: Carlton . BPP 01/20. Active fetus with FRIDA >25 cm and MVP >8cm. Breech position today. IMPRESSION: Single live IUP in breech presentation with mild polyhydramnios and a BPPof 01/20. us Sheela Shannan Mills CNM IMG US OBSTETRIC Fi nal Result * US OB BIOPHYSICAL PROFILE WITH MEASUREMENTS (01/26/2025 2:47 PM EDT) Anatomical Region Laterality Modality Abdomen, Pelvis, Uterus/Adnexa U ltrasound 01/26/2025 2:51 PM EDT Impressions 02/01/2025 11:12 AM EDT Normal BPP and growth. The amniotic fluid volume is increased and consistent with polyhydramnios with an FRIDA of 28 and a MVP of 9.0. There is a segment of bowel measuring 13 mm. Given the polyhydramnios and the dilated bowel, repeat assessment with maternal MFM is recommended. Narrative 02/01/2025 11:12 AM EDT Procedure: US OB BIOPHYSICAL PROFILE WITH MEASUREMENTS 01/26/2025 2:03 PM US Indications: Obesity Complicating ; history of demise, CHTN not on meds. BPP Comparison: No relevant recent comparisons. Maternal age: 34 years. Technique: Transabdominal scan was performed. Color Doppler and M-mode imaging was performed to assess vascularity. FINDINGS: number: 1 position: Vertex Placental position: posterior Placental grade: 2 Heart Rate: 153.0 bpm Cervix: The cervix is suboptimally visualized secondary to head position. Reported LMP: 06/09/2025 Gestational Age by LMP: 33 weeks 0 day(s) Ultrasound EGA: 33 weeks 3 day(s) Ultrasound IMTIAZ: 03/13/2025 Established IMTIAZ: 03/16/2025 BPD: 8.32 cm, consistent with 33 weeks 4 day(s) and 58% Head Circumference: 30.46 cm, consistent with 34 weeks 0 day(s) and 35% Abdominal Circumference: 28.35 cm, consistent with 32 weeks 3 day(s) and 32% Femur Length: 6.49 cm, consistent with 33 weeks 4 day(s) and 51% Estimated weight (EFW): 2087 grams +/- 11 oz. 43% based on established IMTIAZ [place]. HC/AC: 1.07 FL/BPD: 0.78 FL/AC: 0.23 Quads: Amniotic Sac Quad 1 - 9.04 cm Amniotic Sac Quad 2 - 6.54 cm Amniotic Sac Quad 3 - 5.97 cm Amniotic Sac Quad 4 - 7.02 cm Amniotic Fluid Index - 28.57 cm Biophysical Profile Score: Fluid: 2 Breathin Movement: 2 Tone: 2 Total: 01/20 Limited Assessment: The stomach, kidneys, urinary bladder and four-chamber heart were evaluated and normal. Tech Comments: Carlton . BPP 01/20. EFW = 43%. Active fetus. Polyhydramnios noted with an FRIDA = 28 cm. MVP fluid = 9.0 cm. Prominent loop bowel measuring 1.3 cm. Procedure Note Sid Arciniega MD - 02/01/2025 Procedure: US OB BIOPHYSICAL PROFILE WITH MEASUREMENTS 01/26/2025 2:03PM US Indications: Obesity Complicating ; history of neonataldemise, CHTN not on meds. BPP Comparison: No relevant recent comparisons. Maternal age: 34 years. Technique: Transabdominal scan was performed. Color Doppler and M-modeimaging was performed to assess vascularity. FINDINGS: number: 1 position: Vertex Placental position: posterior Placental grade: 2 Heart Rate: 153.0 bpm Cervix: The cervix is suboptimally visualized secondary to headposition. Reported LMP: 06/09/2025 Gestational Age by LMP: 33 weeks 0 day(s) Ultrasound EGA: 33 weeks 3 day(s) Ultrasound IMTIAZ: 03/13/2025 Established IMTIAZ: 03/16/2025 BPD: 8.32 cm, consistent with 33 weeks 4 day(s) and 58% Head Circumference: 30.46 cm, consistent with 34 weeks 0 day(s) and 35% Abdominal Circumference: 28.35 cm, consistent with 32 weeks 3 day(s) and32% Femur Length: 6.49 cm, consistent with 33 weeks 4 day(s) and 51% Estimated weight (EFW): 2087 grams +/- 11 oz. 43% based on established IMTIAZ Hadlock. HC/AC: 1.07 FL/BPD: 0.78 FL/AC: 0.23 Quads: Amniotic Sac Quad 1 - 9.04 cm Amniotic Sac Quad 2 - 6.54 cm Amniotic Sac Quad 3 - 5.97 cm Amniotic Sac Quad 4 - 7.02 cm Amniotic Fluid Index - 28.57 cm Biophysical Profile Score: Fluid: 2 Breathin Movement: 2 Tone: 2 Total: 01/20 Limited Assessment: The stomach, kidneys, urinary bladder andfour- chamber heart were evaluated and normal. Tech Comments: Carlton . BPP 01/20. EFW = 43%. Active fetus. Polyhydramniosnoted with an FRIDA = 28 cm. MVP fluid = 9.0 cm. Prominent loop bowelmeasuring 1.3 cm. IMPRESSION: Normal BPP and growth. The amniotic fluid volume is increased andconsistent with polyhydramnios with an FRIDA of 28 and a MVP of 9.0. Thereis a segment of bowel measuring 13 mm. Given the polyhydramnios and thedilated bowel, repeat assessment with maternal MFM is recommended. Sheela See CNM IMG US OBSTETRIC Fi nal Result * TOTAL PROTEIN CREATININE RATIO, RANDOM URINE (01/11/2025 12:50 AM EDT) Only the most recent of2 resultswithin the time period is included. URINE TOTAL PROTEIN <4.0 mg/dL [facility] URINE CREATININE 14 mg/dL [facility] URINE TP CRE RATIO NOT CALCULATED 0 - 0.19 [facility] Urine (Urine) 01/11/2025 12: 50 AM EDT 01/11/2025 2:23 AM EDT Yesenia Macias CNM URINE ORDERABLES Final Resul t [facility] [address] [place] [address] * (ABNORMAL) Creatinine/eGFR (01/11/2025 12:12 AM EDT) Only the most recent of2 resultswithin the time period is included. CREATININE 0.40(L) 0.5 - 1.5 mg/dL [facility] EGFR >120 >59 mL/min/1.7 3m2 [facility] Comment:Estimated glomerular filtration rate calculated using the CKD-EPI refit equation. Blood 01/11/2025 12:1 2 AM EDT 01/11/2025 12:27 AM EDT [facility] ORDERAB[facility] Final R esult Performing Organization Address City/[facility]/ZIP Co de Phone Number [address] [address] * Hold Specimen In Blood Bank (01/11/2025 12:12 AM EDT) Expiration Date of Sample 01/14/2025 ,2359 [facility] Resulting Agency [facility] Blood 01/11/2025 12:1 2 AM EDT 01/11/2025 12:27 AM EDT [facility] TEST ORDERABLES F inal Result Performing Organization Address City/[facility]/ZIP Co de Phone Number [address] [address] * (ABNORMAL) CBC (01/11/2025 12:12 AM EDT) Only the most recent of3 resultswithin the time period is included. WBC 15.21(H) 4.00 - 11.00 K/uL [facility] RBC 4.83 4.00 - 5.20 M/uL [facility] HGB 11.6(L) 12.0 - 16.0 g/dL [facility] HCT 37.0 36.0 - 46.0 % [facility] PLT 356 150 - 450 K/uL [facility] MCV 76.6(L) 80.0 - 100.0 fL [facility] MCH 24.0(L) 27.0 - 31.0 pg [facility] MCHC 31.4(L) 32.0 - 36.0 g/dL [facility] RDW 14.4 11.5 - 14.5 % [facility] MPV 10.4 8.4 - 12.0 fL [facility] NRBC 0.00 0.00 /100 WBCs [facility] ABSOLUTE NRBC 0.00 0.00 K/uL [facility] Blood 01/11/2025 12:1 2 AM EDT 01/11/2025 12:27 AM EDT Yesenia SYKES LAB BLOOD ORDERABLES Final R esult Performing Organization Address City/[facility] Co de Phone Number [address] [address] * Alanine aminotransferase (ALT) (01/11/2025 12:12 AM EDT) Only the most recent of2 resultswithin the time period is included. ALT 9 0 - 40 U/L [facility] Blood 01/11/2025 12:1 2 AM EDT 01/11/2025 12:27 AM EDT us Yesenia SYKES LAB BLOOD ORDERABLES Final R esult Performing Organization Address City/[facility]/ZIP Co de Phone Number [address] [address] * Aspartate aminotransferase (AST) (01/11/2025 12:12 AM EDT) Only the most recent of2 resultswithin the time period is included. AST 12 0 - 37 U/L [facility] Blood 01/11/2025 12:1 2 AM EDT 01/11/2025 12:27 AM EDT Yesenia Macias CNM LAB BLOOD ORDERABLES Final R esult Performing Organization Address [facility]/ZIP Co de Phone Number [address] [address] * Outside Pathology (01/10/2025 1:16 PM EDT) us Provider Not In System PhD PATHOLOGY ORDERABLES Final Result * Glucose tolerance test, 3 hr (01/05/2025 9:40 AM EDT) FASTING GLUCOSE 76 70 - 95 mg/dL [facility] ONE HR GLUCOSE 148 70 - 180 mg/dL [facility] TWO HR GLUCOSE 130 70 - 155 mg/dL [facility] THREE HR GLUCOSE 86 70 - 140 mg/dL [facility] Comment: PLEASE NOTE THESE RANGES ARE FOR PATIENTS. REFERENCE RANGES, NON- PATIENTS: FASTING GLUCOSE: 70-100 mg/dl 1 HOUR GLUCOSE: 70-200 mg/dl 2 HOUR GLUCOSE: 70-200 mg/dl 3 HOUR GLUCOSE: 70-200 mg/dl Blood 01/05/2025 9:40 AM EDT 01/05/2025 8:34 PM EDT Meaghan Ruby CN LAB BLOOD ORDERABLES Fi nal Result Performing Organization Address [facility] Co de Phone Number [address] [address] * Timed urine data (01/05/2025 7:30 AM EDT) COLLECTION DATA 24 [facility] TOTAL VOLUME 5,200 mL [facility] 01/05/2025 7:30 AM EDT 01/05/2025 9:43 AM EDT Sheela See CN URINE ORDERABLES Fi nal Result Performing Organization Address City/[facility]/ZIP Co de Phone Number [address] [address] * Total protein, 24 hr urine (01/05/2025 7:30 AM EDT) URINE TOTAL PROTEIN <4.0 mg/dL [facility] Protein, time varied urine (mg/TV) NOT CALCULATED 0 - 165 mg/total output [facility] Urine (Urine) 01/05/2025 7:3 0 AM EDT 01/05/2025 9:43 AM EDT Sheela See CNM URINE ORDERABLES Fi nal Result Performing Organization Address City/[facility]/ZIP Co de Phone Number [address] [address] * Glucose tolerance test, 1 hr (12/27/2024 10:11 AM EDT) Pathologist [facility] ONE HR GLUCOSE 168 70 - 180 mg/dL [facility] Blood 12/27/2024 10:1 1 AM EDT 12/27/2024 11:23 AM EDT us Meaghan Ruby [facility] LAB BLOOD ORDERABLES Fi nal Result Performing Organization Address [facility]/ZIP Co de Phone Number [address] [address] * Syphilis antibody screen (12/27/2024 10:11 AM EDT) RPR NON-REACTIV E NON-REACTI VE [facility] Blood 12/27/2024 10:1 1 AM EDT 12/27/2024 11:23 AM EDT Meaghan Ruby CN LAB BLOOD ORDERABLES Fi nal Result Performing Organization Address [facility]/ZIP Co de Phone Number [address] [address] * Hepatitis C antibody, qualitative (08/23/2024 3:24 PM EDT) HCV NON-REACTIV E NON-REACTI VE [facility] Blood 08/23/2024 3:24 PM EDT 08/23/2024 3:46 PM EDT Yesenia SYKES LAB BLOOD ORDERABLES Final R esult [facility] [address] [place] [address] from Last 3 Months or Most Recently Relevant to Health Maintenance [place] [address] [place] [address] [place] [address] [place] [address] [place] [place] [address] [place] [address] [place] [address] [place] [address] [place] [address] [employer] [facility] INSURANCE Advance Directives For more information, please contact: [phone] (9AM - 5PM [facility], Thursday-Thursday) * Full Code (Latest Code Status on File) Date Activated Date Inactivated Comments 01/10/2025 11:52 PM Question Answer Comments Code Status Confirmed With: Patient Care Teams Ceramic Plater Relationship Specialty Start Date End Date Coni Gomez MD [address] [place] [address] PCP - General Internal Medicine 06/03/19 Additional Source Comments The information contained in this document represents components of the legal health record. It is not the complete legal health record.[facility]
--- OUTSIDE RECORDS SUMMARY | 2025-02-21 10:52 | XMS_ITS | Encounter Summary ---
Author Organization [facility] Address [address] [place] [address] Care Team Providers Care Dental Technician Apprentice Name Role Phone Coni Griffiths MD Primary Care Provider Kaylee gonsalez Encounter Details Date Type Department Care Team Description 07/01/2016 Zika Virus Medical Records [address] [place] [address] Abstract, Provider Social History Tobacco Use Types Packs/Day Years Used Date Smoking Tobacco: Never Smokeless Tobacco: Never Alcohol Use Standard Drinks/Week Comments Yes 0 (1 standard drink = 0.6 oz [...] file Not on file Not on file documented as of this encounter Plan of Treatment Not on file documented as of this encounter Visit Diagnoses Not on filedocumented in this encounter Care Teams Dental Technician Apprentice Relationship Specialty Start Date End Date Coni Griffiths MD PCP - General Internal Medicine 11/07/14 documented as of this encounter
--- OUTSIDE RECORDS SUMMARY | 2025-02-21 10:52 | XMS_ITS | Encounter Summary ---
Author Organization [employer] [facility] Address [address] [place] [address] Care Team Providers Care Applier Name Role Phone Coni Griffiths MD Primary Care Provider Kaylee gonsalez Encounter Details Date Type Department Care Team Description 09/07/2023 Pt. Non Urgent Medical Question OBGYN - [address] [address] [address] [address] Social History Tobacco Use Types Packs/Day Years [...] on filedocumented in this encounter Care Teams Applier Relationship Specialty Start Date End Date Coni Griffiths MD PCP - General Internal Medicine 11/07/14 documented as of this encounter
--- OUTSIDE RECORDS SUMMARY | 2025-02-21 10:52 | XMS_ITS | Encounter Summary ---
Author Organization [facility] Address [address] [place] [address] Phone Care Team Providers Care Supervisor Cab Name Role Phone Coni Gomez MD Primary Care Provid er Reason for Visit * Reason Onset Date Comments Referral 02/16/2025 Breast Imaging 02/16/2025 Encounter Details Date Type Department Care Team (Late st Contact Info) Description 02/16/2025 Telephone [facility] [address] [place] [address] [place] [address] Jane Camarena LPN [address] [place] [address] [email or web address] Referral; Breast Imaging Social History Tobacco Use Types Packs/Day Years [...] AM EDT documented as of this encounter Progress Notes * Jane Camarena LPN - 02/17/2025 9:25 AM EDT I left a message to Luciano to notify message has been sent to provider. * Jane Camarena LPN - 02/16/2025 3:21 PM EDT I received a message form Madhuri Thornton RN at the [facility], stating that they have triedto reach patient and have exhausted their attempts to schedule her. Please advise if patient shouldfollow up after deliver or other recommendations. Dx Imaging ordered by Sheela See CNM. Messageto covering provider Bre Hager CNM. Call back # to Nurse Navigator #[phone], requesting call back for confirmation that VM was reviewed. documented in this encounter Plan of Treatment Upcoming Encounters Date Type Department Care Team (Late st Contact Info) Description 02/23/2025 11:00 AM EDT Appointment [facility] [place], OB [address] [place] [address] Sheela See CNM [address] [address] 02/23/2025 12:00 PM EDT Office Visit [facility] [address] [place] [address] Nicholas Araujo MD [address] [place] [address] 03/02/2025 Hospital Encounter [facility] [address] [place] [address] Nicholas Araujo MD [address] [place] [address] 03/02/2025 Procedure Pass [facility] [address] [place] [address] 04/10/2025 9:30 AM EDT Office Visit [facility] [address] [place] [address] Sheela Cruz MD [address] [facility], 2nd [place] [address] Scheduled Procedures Name Priority Associated Diagnoses Date/Ti me SECTION REPEAT Supervision of high risk in third trimester History of delivery documented as of this encounter Visit Diagnoses Not on filedocumented in this encounter Care Teams Supervisor Cab Relationship Specialty Start Date End Date Coni Gomez MD [address] [place] [address] PCP - General Internal Medicine 06/03/19 documented as of this encounter Additional Source Comments The information contained in this document represents components of the legal health record. It is not the complete legal health record.[facility]
--- OUTSIDE RECORDS SUMMARY | 2025-02-21 10:52 | XMS_ITS | Encounter Summary ---
Author Organization [facility] Address [address] [place] [address] Phone Care Team Providers Care Biodiesel Process Control Technician Name Role Phone Coni Gomez MD Primary Care Provid er Encounter Details Date Type Department Care Team (Late st Contact Info) Description 02/15/2025 Telephone [facility] [address] [place] [address] [place] [address] Rowena Sandoval CNM [address] [facility], [address] [place] [address] [email or web address] Social History Tobacco Use Types Packs/Day Years [...] as of this encounter Progress Notes * Sergio Balderas - 02/21/2025 10:44 AM EDT Swp, wanting to schedule for 03/02. Need case reentered to reflect 38 wk CS, sending to MD macroeconomics professor * Rowena Sandoval CNM - 02/15/2025 10:00 AM EDT Josefina is supposed to have a at 38 weeks - I see the case request but she has not been called or scheduled. Just checking in. documented in this encounter Plan of Treatment Upcoming Encounters Date Type Department Care Team (Late st Contact Info) Description 02/23/2025 11:00 AM EDT Appointment [facility] [place], OB [address] [place] [address] [place] [address] Sheela See CNM [address] [facility], [address] [place] [address] 02/23/2025 12:00 PM EDT Office Visit [facility] [address] [place] [address] Nicholas Araujo MD 22 [facility], [address] [address] 03/02/2025 Hospital Encounter [facility] [address] [place] [address] Nicholas Araujo MD [address] [facility], [address] [address] 03/02/2025 Procedure Pass [facility] [address] [place] [address] 04/10/2025 9:30 AM EDT Office Visit [facility] [address] [place] [address] Sheela Cruz MD [address] [facility], 2nd [place] [address] [facility] Scheduled Procedures Name Priority Associated Diagnoses Date/Ti me SECTION REPEAT Supervision of high risk in third trimester History of delivery documented as of this encounter Visit Diagnoses Not on filedocumented in this encounter Care Teams Biodiesel Process Control Technician Relationship Specialty Start Date End Date Coni Gomez MD [address] [place] [address] PCP - General Internal Medicine 06/03/19 documented as of this encounter Additional Source Comments The information contained in this document represents components of the legal health record. It is not the complete legal health record.[facility]
--- OUTSIDE RECORDS SUMMARY | 2025-02-21 10:52 | XMS_ITS | Encounter Summary ---
Author Organization [facility] Address [address] [place] [address] Phone Care Team Providers Care Maintenance Specialist Name Role Phone Coni Gomez MD Primary Care Provid er Encounter Details Date Type Department Care Team (Late st Contact Info) Description 10/25/2024 Procedure Pass [facility] - [address] [place] [address] Social History Tobacco Use Types Packs/Day Years [...] with a working camera? Not on file Estimated Date of Delivery Comme nts Yes 03/16/2025 Based on last me nstrual period of 06/09/2024 Sex and Gender Information Value Date Recorded Sex Assigned at Female 06/03/2019 12:04 PM EST Legal Sex Female 8:58 PM EDT Gender Identity Female 06/03/2019 12:04 PM EST Sexual Orientation Straight 10/11/2020 11 :41 AM EDT documented as of this encounter Plan of Treatment Upcoming Encounters Date Type Department Care Team (Late st Contact Info) Description 02/23/2025 11:00 AM EDT Appointment [facility] [place], OB [address] [place] [address] Sheela See CNM 22 [facility], [address] [address] 02/23/2025 12:00 PM EDT Office Visit [facility] [address] [place] [address] [place] [address] Nicholas Araujo MD [address] [place] [address] 03/02/2025 Hospital Encounter [facility] [address] [place] [address] Nicholas Araujo MD [address] [place] [address] 03/02/2025 Procedure Pass [facility] [address] [place] [address] 04/10/2025 9:30 AM EDT Office [facility] [address] [place] [address] [place] [address] Sheela Cruz MD 15 [facility], 2nd [place] [address] Scheduled Procedures Name Priority Associated Diagnoses Date/Ti me SECTION REPEAT Supervision of high risk in third trimester History of delivery documented as of this encounter Visit Diagnoses Not on filedocumented in this encounter Care Teams Maintenance Specialist Relationship Specialty Start Date End Date Coni Gomez MD NPI: [id number] [place] [address] PCP - General Internal Medicine 06/03/19 documented as of this encounter Additional Source Comments The information contained in this document represents components of the legal health record. It is not the complete legal health record.[facility]
--- OUTSIDE RECORDS SUMMARY | 2025-02-21 10:52 | XMS_ITS | Clinical Summary ---
Author Organization [facility] Address [address] [place] [address] Phone Care Team Providers Care Well Surveying Engineer Name Role Phone Coni Griffiths MD Primary Care Provider [phone] Allergies Active Allergy Reactions Criticality Noted Date Comments Shrimp Anaphylaxis High 12/13/2024 Medications No known medications Active Problems Problem Noted Date Diagnosed Date Frequent headaches 12/13/2024 Glucose intolerance of 12/13/2024 Infection of obstetric surgical wound 12/13/2024 Insomnia 12/13/2024 Severe obesity (BMI 35.0-39. 9) with comorbidity (CMS/HCC V24, CMS/HCC V28) 12/13/2024 Wound infection 12/13/2024 12/13/2024 Carpal tunnel syndrome during 10/18/19 25 Dysuria during in second trimester Overview (12/13/2024): Treated at 16w w macrobid BID x7 days for 100K of neg staph (vaginal bacteria) per ACOG d/t high colony count & symptomatic. Current in first t ester with history of during prior 08/04/2024 Overview (12/13/2024): 3 day IOL due to chronic HTN at 36wks. Baby was born alive. 12hrs later. 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 Pt wants to discuss further timing of delivery and will like a R/C/S Anxiety and depression 08/04/2024 Overview (12/13/2024): Hx of anxiety and depression. Takes 150mg of Zoloft. Does not have a therapist. Nausea and vomiting 08/04/2024 Obesity affecting in first trimester 0 08/04/2024 Overview (12/13/2024): Obesity in (BMI >30) BMI at Intake [...] if indicated PP lovenox according to guidelines Supervision of high risk in first trim jass 08/01/2024 Overview (12/13/2024): [facility] JOHNNIE NV FOB u/s at 10w5d showed IUP measuring ahead 7 days. IMTIAZ not changed as not greater than 7 days. CNM OB-CMI score: 5 [08/04/2024] Group PN care? * screening * Baby ASA? * Rh POS GC/Chlam * PAP * Flu * COVID-19 * Hgb * GTT * Repeat RPR * Tdap * EPDS * PPBC * GBS * Feeding Plan * 09/08/2023 Overview (12/13/2024): 08/17/2023 pt daughter passed 12 hrs after (severe encephalopathy, metabolic acidosis) Suicidal ideation 07/17/2023 Alpha thalassemia silent carrier 03/19/2023 Overview (12/13/2024): Horizon 14 Panel Positive: Silent Carrier for Alpha Thalassemia (aa/a-). 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 Depending on carrier status of the patient's partner, this couple may be at increased risk to have a child with Hemoglobin H Disease. Carrier screening of the patient's partner is suggested. Chronic hypertension in 02/10/2023 Overview (12/13/2024): CHTN in - not currently on any meds Baseline HELLP labs, P/C ratio or 24 hour urine - normal, still need to collect p/c ratio Begin baby ASA (162 mg daily) 12-14 wks No meds and nl BP: -Ultrasound for growth in third trimester (around 28- 32 wks) may repeat if clinically indicated On meds add q 4wks growth and wkly BPP at 32 wks If BP > 140/90 wkly BPP and growth q 4 wks Delivery: -No meds: 38-39+6 -Meds: 37-39+6 -Unstable: 36-37+6 Depression 02/05/2023 Overview (12/13/2024): Recently switched to Zoloft 25 mg from Lexapro [address] Qiu (PCP) Increased zoloft to 50mg on 02/09 and 75 mg On 02/16 Per McPap, may increase to 100 mg if needed Endometriosis 02/05/2023 Overview (12/13/2024): Dx 2011 Estimated Date of Delivery Comme nts Yes 03/16/2025 Based on last me nstrual period of 06/09/2024 Encounters Date Type Department Care Team Description 01/17/2025 10:00 AM EDT Ancillary Procedure Maternal Medicine [address] [address] History of IUGR (intrauterine growth retardation) and stillbirth, currently , second trimester; Essential hypertension affecting in third trimester; Obesity affecting in third trimester; Other obesity due to excess calories affecting in third trimester 12/20/2024 10:00 AM EDT Ancillary Procedure Maternal Medicine - [address] [place] [address] Follow-up exam; Chronic hypertension complicating or reason for care during , second trimester; Current with history of during second trimester of prior ; History of prior with IUGR 12/13/2024 11:10 PM EDT - 12/14/2024 1:30 AM EDT Hospital Encounter [facility] - Maternity [address] [place] [id number] Douglas Rhoades MD Discharge Disposition: Home or Self Care from Last 3 Months Surgical History Surgery Date Site/Laterality Comments BREAST REDUCTION 2013 PROCEDURE: [place] BREAST REDUCTION; COMMENT: keyhole LAPAROSCOPY DIAGNOSTIC / BIO PSY / ASPIRATION / LYSIS 2011 PROCEDURE: PELVIS LAPAROSCOPY, DIAGNOSTIC; COMMENT: Dx endometriosis TONSILLECTOMY ADENOIDECTOMY, BILATERAL MYRINGOTOMY AND TUBES PROCEDURE: [place] TONSILLECTOMY & ADENOIDECTOMY <AGE 14 Medical History Medical History Date Comments Endometriosis 06/15/2011 DX:Endometriosis Borderline high cholesterol DX:B orderline high cholesterol Essential (primary) hypertension DX:Essential (primary) hypertension; COMMENT: found during Family History Medical History Relation Name Comments Cervical cancer Aunt No Known Problems Father No Known Problems Maternal Grandfather No Known Problems Maternal Grandmother Hyperlipidemia Mother Other: fibro Mother No Known Problems Paternal Grandfather No Known Problems Paternal Grandmother Other: Idiopathic entercranial hypertension Sister 1 Other: Meningitis Sister 1 Hx of No Known Problems Sister 2 Breast cancer Neg Hx Colon cancer Neg Hx Ovarian cancer Neg Hx Pancreatic cancer Neg Hx Prostate cancer Neg Hx Uterine cancer Neg Hx Relation Name Status Comments Aunt Alive Father Alive Maternal Grandfather Alive Maternal Grandmother Alive Mother Alive Paternal Grandfather Alive Paternal Grandmother Alive Sister 1 Alive Sister 2 Alive Social History Tobacco Use Types Packs/Day Years Used Date Smoking Tobacco: Never Smokeless Tobacco: Never Alcohol Use Standard Drinks/Week Comments Not Currently 0 (1 standard drink = 0.6 oz pur e alcohol) Estimated Date of Delivery Comme nts Yes 03/16/2025 Based on last me nstrual period of 06/09/2024 Sex and Gender Information Value Date Recorded Sex Assigned at Not on file Legal Sex Female 8:29 AM EST Gender Identity Not on file Sexual Orientation Not on file Obstetrics History Para Term AB IAB SAB Ectopic Multiple Livin g Live Births 3 2 2 1 2 Date Outcome GA Total Labor Labor/2nd/3rd Weight Sex Type Anes PTL Ivy A1 A5 Name Clin 2016 Term 38w 4d 20h 18m 19h 00m/1h 12m/0h 06m 2863 g (101 oz) M Vag-S pont Epidur al N Livin g 7 9 Mayco Terry tt-Ho lland er CNM Complications:None Delivery Location:[facility] Comments:SROM 2023 Term 37w 3d F CS-Un spec Epidur al Neona marcos Demis e Karine Betanc ourt Guerra Complications:Hypertension Living Status Comments:neona marcos encepholapathy severe, depression, metabolic acidosis. Baby lived for 12hrs. Delivery Location:[facility] Current Summary Episode Dates Number of Fetuses Estimated Date of Delivery 12/13/2024 - Present (02/21/2025) 03/16/2025 (set by Rosy Green CNM on 12/13/2024 based on Last Menstrual Period on 06/09/2024) Dating Summary Based On IMTIAZ GA Diff Last Menstrual Period on 06/09/2024 03/16/2025 Working Vitals Pregravid Weight Height TWG (As of 02/21/2025) Pregrav id BMI 1.549 m (61 ) Date GA Fund Present FHR Mvmt BP Weight Edema Alb Glu Ket Dil/ Eff/Sta 5 26w6d Inpatient data not displayed here. See encounter summary. Last Filed Vital Signs Vital Sign Reading Time Taken Comments Blood Pressure 118/66 12/14/2024 12:30 AM EDT Pulse 74 12/14/2024 12:30 AM EDT Temperature 36.3 C (97.3 F) 12/13/2024 11:19 PM EDT Respiratory Rate 18 12/13/2024 11:19 PM EDT Oxygen Saturation 98% 12/13/2024 11:19 PM EDT Inhaled Oxygen Concentration - - Weight 104 kg (230 lb) 12/13/2024 11:19 PM EDT Height 154.9 cm (5' 1 ) 12/13/2024 11:19 PM EDT Body Mass Index 43.46 12/13/2024 11:19 PM EDT Plan of Treatment Health Maintenance Due Date Last Done Comments Hepatitis B Vaccines (1 of 3 - 19+ 3-dose series) 2011 Pneumococcal Vaccine: Pediatrics (0 to 5 Years) and At-Risk Patients (6 to 49 Years) (1 of 2 - PCV) 2011 Cervical Cancer Screening: Pap Smear 2013 Cholesterol Screening (Lipid Panel) 05/18/2022 HIV Screening 05/18/2022 Social Influencers of Health Screening 05/18/2022 Depression Screening 06/15/2024 COVID-19 Vaccine ( season) 2025 05/24/2021, 10/26/2020, 10/05/2020 Influenza Vaccine (#1) 2025 , 07/10/2016, 03/28/2016, Additional history exists Hypertension/CHF/CAD Annual BMP Blood Test 05/02/2025 05/02/2024 DTaP,Tdap,and Td Vaccines (3 - Td or Tdap) 06/30/2033 06/30/2023, 12/18/2016 Hepatitis C Screening Completed 08/23/2024 HIB Vaccines Aged Out No longer eligi ble based on patient's age to complete this topic HPV Vaccines Aged Out No longer eligi ble based on patient's age to complete this topic Hepatitis A Vaccines Aged Out No long er eligible based on patient's age to complete this topic IPV Vaccines Aged Out No longer eligi ble based on patient's age to complete this topic Meningococcal ACWY Vaccine Aged Out N o longer eligible based on patient's age to complete this topic Meningococcal B Vaccine Aged Out No l onger eligible based on patient's age to complete this topic RSV Immunization Patients Under 20 months Aged Out No longer eligible based on patient's age to complete this topic Procedures Procedure Name Priority Date/Time Associated Diagnosis Comments US OB FOLLOWUP PER FETUS Routine 01/17/2025 10:58 AM EDT Essential hypertension affecting in third trimester History of IUGR (intrauterine growth retardation) and stillbirth, currently , second trimester Obesity affecting in third trimester Other obesity due to excess calories affecting in third trimester US OB FOLLOWUP PER FETUS Routine 12/20/2024 10:05 AM EDT Chronic hypertension complicating or reason for care during , second trimester Current with history of during second trimester of prior History of prior with IUGR STREP B PCR Routine 12/13/2024 11:53 PM EDT TIGER TOP URINE TUBE Routine 12/13/2024 11:52 PM EDT YELLOW URINE NO ADDITIVE Routine 12/13/2024 11:52 PM EDT EXTRA TUBES Routine 12/13/2024 11:52 PM EDT FIBRONECTIN STAT 12/13/2024 11: 52 PM EDT RUPTURE OF MEMBRANES Routine 12/13/2024 11:52 PM EDT DRUG ABUSE SCREEN EXPANDED WITH REFLEX CONFIRMATION, URINE Routine 12/13/2024 11:52 PM EDT CULTURE URINE STAT 12/13/2024 11:52 PM EDT CHLAMYDIA TRACHOMATIS AND NEISSERIA GONORRHOEAE PCR STAT 12/13/2024 11:51 PM EDT BASIC METABOLIC PANEL STAT 05/02/2024 4:49 PM EST from Last 3 Months or Most Recently Relevant to Health Maintenance Results * US OB Followup per Fetus (01/17/2025 10:58 AM EDT) Only the most recent of2 resultswithin the time period is included. Anatomical Region Laterality Modality Body Ultrasound 01/17/2025 10:1 8 AM EDT Narrative 01/17/2025 11:04 AM EDT OBSTETRICS REPORT (Signed Final 01/17/2025 11:04 am) PATIENT INFO: ID #: [id number] : [birth year] (34 yrs)(F) Name: BILLIE GUERRA Visit Date: 01/17/2025 10:18 am PERFORMED BY: Attending: Mildred Zabala MD Performed By: Red Banks [facility] Referred By: Sheela See [facility] Ref. Address: [facility] [address] [place] [id number] Location: [place] [facility]) SERVICE(S) PROVIDED: [place] [id number] INDICATIONS: Supervision of with other poor O09.292 reproductiv Pre-existing essential hypertension O10.013 complicating , third trimester Obesity complicating , 3rdtrimester O99.213 Morbid obesity E66.01 History of loss Z87.59 31 weeks gestation of Z3A.31 TECHNIQUE/SCAN QUALITY: Technique: Transabdominal Scan Satisfactory Quality: OB HISTORY: : 3 Term: 2 Livin VITAL SIGNS: Weight (lb) Height BMI 230 5'1 43.45 EVALUATION: Number Of Fetuses: 1 Heart Rate(bpm): 143 Cardiac Activity: Observed Presentation: Cephalic Placenta Location: Posterior Appearance: Grade 2 Relation to CVX: No previa Amniotic Fluid FRIDA FV: Within Normal Limits RUQ(cm) RLQ(cm) LUQ(cm) LLQ(cm) 3.09 6.24 5.54 4.45 FRIDA Sum(cm) %Tile Largest Pocket(cm) 19.32 73 6.24 Comment: A >2 x 2 cm pocket of fluid is noted. BIOMETRY: BPD: 80.5 mm G.Age: 32w 2d 60 % HC: 304 mm G.Age: 33w 6d 70 % AC: 267.9 mm G.Age: 30w 6d 24 % FL: 59.7 mm G.Age: 31w 1d 21 % LV: 4.5 mm CI: 71.16 % 70 - 86 FL/HC: 19.6 % 19.1 - 21.3 HC/AC: 1.13 0.96 - 1.17 FL/BPD: 74.2 % 71 - 87 FL/AC: 22.3 % 20 - 24 Est. FW: 1750 gm 3 lb 14 oz 27 % GESTATIONAL AGE: LMP: 31w 5d Date: 06/09/24 IMTIAZ: 03/16/25 U/S Today: 32w 0d IMTIAZ: 03/14/25 Best: 31w 5d Det. By: LMP (06/09/24) IMTIAZ: 03/16/25 STANDARD ANATOMY: Cranium: Normal appearance Stomach: Normal appearance Kidneys: Normal appearance Bladder: Normal appearance COMMENTS: Ms. Guerra is being seen for assessment of growth. for chronic hypertension - Her medical history is significant for anxiety, depression, and chronic hypertension. Her current medications include 150 mg Zoloft, low dose aspirin, and magnesium. - Her obstetrical history is significant for one term vaginal delivery (complicated by growth restriction and a marginal placental cord insertion) and a term delivery with a demise ( complicated by hypertension). - She had cell free DNA screening performed. Results are low-risk for all conditions assessed. - Ultrasound findings: The estimated weight is 1,754 grams, at the 27th percentile. The amniotic fluid index measures 19.32 cm, within the normal range for the gestational age. - Plan: Serial growth scans are recommended every 4 weeks; this has not been scheduled for the patient (she reports having them at [facility]). Mildred Zabala MD Electronically Signed Final Report 01/17/2025 11:04 am Procedure Mildred Berger MD - 01/17/2025 OBSTETRICS REPORT (Signed Final 01/17/2025 11:04 am) PATIENT INFO: ID #: [id number] : [birth year] (34 yrs)(F) Name: BILLIE GUERRA Visit Date: 01/17/2025 10:18 am PERFORMED BY: Attending: Mildred Zabala MD Performed By: Red Banks [facility] Referred By: Sheela See [facility]. [facility] [address] [place] [address] Location: [place] [facility] ([facility]) SERVICE(S) PROVIDED: [place] [id number] INDICATIONS: Supervision of with other poor O09.292 reproductiv Pre-existing essential hypertension O10.013 complicating , third trimester Obesity complicating , 3rdtrimester O99.213 Morbid obesity E66.01 History of loss Z87.59 31 weeks gestation of Z3A.31 TECHNIQUE/SCAN QUALITY: Technique: Transabdominal Scan Satisfactory Quality: OB HISTORY: : 3 Term: 2 Livin VITAL SIGNS: Weight (lb) Height BMI 230 5'1 43.45 EVALUATION: Number Of Fetuses: 1 Heart Rate(bpm): 143 Cardiac Activity: Observed Presentation: Cephalic Placenta Location: Posterior Appearance: Grade 2 Relation to CVX: No previa Amniotic Fluid FRIDA FV: Within Normal Limits RUQ(cm) RLQ(cm) LUQ(cm) LLQ(cm) 3.09 6.24 5.54 4.45 FRIDA Sum(cm) %Tile Largest Pocket(cm) 19.32 73 6.24 Comment: A >2 x 2 cm pocket of fluid is noted. BIOMETRY: BPD: 80.5 mm G.Age: 32w 2d 60 % HC: 304 mm G.Age: 33w 6d 70 % AC: 267.9 mm G.Age: 30w 6d 24 % FL: 59.7 mm G.Age: 31w 1d 21 % LV: 4.5 mm CI: 71.16 % 70 - 86 FL/HC: 19.6 % 19.1 - 21.3 HC/AC: 1.13 0.96 - 1.17 FL/BPD: 74.2 % 71 - 87 FL/AC: 22.3 % 20 - 24 Est. FW: 1750 gm 3 lb 14 oz 27 % GESTATIONAL AGE: LMP: 31w 5d Date: 06/09/24 IMTIAZ: 03/16/25 U/S Today: 32w 0d IMTIAZ: 03/14/25 Best: 31w 5d Det. By: LMP (06/09/24) IMTIAZ: 03/16/25 STANDARD ANATOMY: Cranium: Normal appearance Stomach: Normal appearance Kidneys: Normal appearance Bladder: Normal appearance COMMENTS: Ms. Guerra is being seen for assessment of growth. for chronic hypertension - Her medical history is significant for anxiety, depression, and chronic hypertension. Her current medications include 150 mg Zoloft, low dose aspirin, and magnesium. - Her obstetrical history is significant for one term vaginal delivery (complicated by growth restriction and a marginal placental cord insertion) and a term delivery with a demise ( complicated by hypertension). - She had cell free DNA screening performed. Results are low-risk for all conditions assessed. - Ultrasound findings: The estimated weight is 1,754 grams, at the 27th percentile. The amniotic fluid index measures 19.32 cm, within the normal range for the gestational age. - Plan: Serial growth scans are recommended every 4 weeks; this has not been scheduled for the patient ([facility] Mildred Zabala MD Electronically Signed Final Report 01/17/2025 11:04 am Sheela See CNM IMG OB US PROCEDURE S Final Result * Strep B molecular study (12/13/2024 11:53 PM EDT) [facility] Grp B Strep PCR Not Detected Not Detected LAB MICROBIOLOGY METHOD 12/15/2024 8:33 AM EDT [facility] Swab Pooled specimen from vaginal introitus and rectal swab / Unknown Non-blood Collection / Unknown 12/13/2024 11:53 PM EDT 12/14/2024 12:04 AM EDT Rosy SYKES LAB BLOOD ORDERABLES Final Resu lt [facility] [address] [place] [address], [place] [phone] * [place] top urine tube (12/13/2024 11:52 PM EDT) [facility] Extra Tube Hold for add-ons. 12/14/2024 2:01 AM EDT [facility] Comment:Auto resulted. Urine Urine specimen obtained by clean catch procedure / Unknown 12/13/2024 11:52 PM EDT 12/14/2024 12:03 AM EDT us Douglas Rhoades MD LAB URINE ORDERABLES Jesi woody Result [facility] [address] [place] [address], [place] [phone] * Drug abuse screen expanded with reflex confirmation, urine (12/13/2024 11:52 PM EDT) Amphetamine Screen, Ur Negative Negative LAB CHEMISTRY METHOD 12/14/2024 12:28 AM EDT [facility] Comment:Certain OTC medicati ons containing ephedrine, phenylephrine, pseudoephedrine and phenylpropanolamine can cause false positive results. Barbiturate Screen, Ur Negative Negative LAB CHEMISTRY METHOD 12/14/2024 12:28 AM [facility] Benzodiazepine Screen, Ur Negative Negative LAB CHEMISTRY METHOD 12/14/2024 12:28 AM EDT [facility] Cocaine Screen, Ur Negative Negative LAB CHEMISTRY METHOD 12/14/2024 12:28 AM T [facility] Opiate Screen, Ur Negative Negative LAB CHEMISTRY METHOD 12/14/2024 12:28 AM [facility] Cannabinoid (THC) Screen, Ur Negative Negative LAB CHEMISTRY METHOD 12/14/2024 12:28 AM T [facility] Comment:Specimens from patie nts taking pantoprazole sodium (Protonix) have been shown to produce false positive results. Fentanyl, Ur Negative Negative LAB CHEMISTRY METHOD 12/14/2024 12:28 AM T [facility] Oxycodone Screen, Ur Negative Negative LAB CHEMISTRY METHOD 12/14/2024 12:28 AM [facility] Urine Urine specimen obtained by clean catch procedure / Unknown Non-blood Collection / Unknown 12/13/2024 11:52 PM EDT 12/14/2024 12:02 AM EDT Narrative [facility] - 12/14/2024 12:28 AM EDT Assay cutoffs: Amphetamines 1000 ng/mL Barbiturates 200 ng/mL Benzodiazepines 200 ng/mL Cocaine 300 ng/mL Fentanyl 1 ng/mL Opiates 300 ng/mL Oxycodone 100 ng/mL THC 50 ng/mL Semi-quantitative assay for screening purposes only. Unconfirmed screening result should not be used for non-medical purposes. *POSITIVE RESULTS ARE AUTOMATICALLY SENT FOR ALTERNATE METHOD CONFIRMATION* Rosy Green CNM LAB URINE ORDERABLES Final Resu lt [facility] [address] [place] [address], [place] [phone] * Rupture of membranes (12/13/2024 11:52 PM EDT) Placental Alpha-1 Microglobulin Negative Negative 12/14/2024 12:36 AM EDT [facility] Vaginal Fluid Vaginal structure / Unknown Non-blood Collection / Unknown 12/13/2024 11:52 PM EDT 12/14/2024 12:01 AM EDT Rosy Green CNM LAB BODY FLUIDS AND STOOLS ORDE RABLES Final Result Performing Organization Address [facility]/ZIP Co de Phone Number [facility] [address] [place] [address], [place] [phone] * Yellow urine no additive (12/13/2024 11:52 PM EDT) Extra Tube Hold for add-ons. 12/14/2024 2:01 AM EDT [facility] Comment:Auto resulted. Urine Urine specimen obtained by clean catch procedure / Unknown 12/13/2024 11:52 PM EDT 12/14/2024 12:03 AM EDT Douglas Rhoades MD LAB URINE ORDERABLES Jesi l Result Performing Organization Address [facility]/ZIP Co de Phone Number [facility] [address] [place] [address], [place] [phone] * fibronectin (12/13/2024 11:52 PM EDT) Fibronectin Negative Negative LAB CHEMISTRY METHOD 12/14/2024 1:19 AM EDT [facility] Vaginal Fluid Non-blood Collection / Unknown 12/13/2024 11:52 PM EDT 12/14/2024 12:01 AM EDT Rosy Green CNM LAB BODY FLUIDS AND STOOLS ORDE RABJUSTEN Final Result Performing Organization Address [facility] Co de Phone Number [facility] [address] [place] [address], [place] [phone] * Urine culture (12/13/2024 11:52 PM EDT) Pathologist [facility] Culture, Urine 10,000-49,000 CFU/mL Mixed urogenital heath, no uropathogens present. Suggest repeat specimen if clinically indicated. 12/15/2024 8:35 AM EDT [facility] Urine Urine specimen obtained by clean catch procedure / Unknown Non-blood Collection / Unknown 12/13/2024 11:52 PM EDT 12/14/2024 12:02 AM EDT Rosy Green CNM LAB MICROBIOLOGY - GENERAL ORDParisa RABJUSTEN Final Result Performing Organization Address [facility]/ZIP Co de Phone Number [facility] [address] [place] [address], [place] [phone] * Chlamydia trachomatis and Neisseria gonorrhoeae molecular study (12/13/2024 11:51 PM EDT) Neisseria gonorrhoeae PCR Negative Negative LAB MOLECULAR DIAGNOSTICS METHOD 12/14/2024 1:02 PM EDT [facility] Chlamydia trachomatis PCR Negative Negative LAB MOLECULAR DIAGNOSTICS METHOD 12/14/2024 1:02 PM EDT [facility] Cervix uteri structure / Unknown 12/13/2024 11:51 PM EDT 12/14/2024 12:03 AM EDT Rosy SYKES LAB MICROBIOLOGY - GENERAL [place] Final Result [facility] [address] [place] [address], [place] [phone] * (ABNORMAL) Basic metabolic panel (05/02/2024 4:49 PM EST) Sodium 137 133 - 145 mmol/L LAB CHEMISTRY METHOD 05/02/2024 5:34 PM [facility] Potassium 4.1 3.5 - 5.5 mmol/L LAB CHEMISTRY METHOD 05/02/2024 5:34 PM [facility] Chloride 104 96 - 110 mmol/L LAB CHEMISTRY METHOD 05/02/2024 5:34 PM [facility] CO2 27 21 - 32 mmol/L LAB CHEMISTRY METHOD 05/02/2024 5:34 PM [facility] Anion Gap 6 3 - 11 LAB CHEMISTRY METHOD 05/02/2024 5:34 PM [facility] Glucose 112(H) 70 - 100 mg/dL LAB CHEMISTRY METHOD 05/02/2024 5:34 PM [facility] BUN 9 5 - 25 mg/dL LAB CHEMISTRY METHOD 05/02/2024 5:34 PM [facility] Creatinine 0.79 0.50 - 1.10 mg/dL LAB CHEMISTRY METHOD 05/02/2024 5:34 PM [facility] eGFR 103 >=60 mL/min/1. 73m2 LAB CHEMISTRY METHOD 05/02/2024 5:34 PM EST [facility] Comment:Calculation based on the Chronic Kidney Disease Epidemiology Collaboration (CKD-EPI) equation refit without adjustment for race. BUN/Creatinine Ratio 11.4 LAB CHEMISTRY METHOD 05/02/2024 5:34 PM EST [facility] Calcium 9.6 8.5 - 10.5 mg/dL LAB CHEMISTRY METHOD 05/02/2024 5:34 PM [facility] Blood Venous blood specimen / Unknown Venipuncture / Unknown 05/02/2024 4:49 PM EST 05/02/2024 4:58 PM EST us Dayne Barrera MD LAB BLOOD ORDERABLES Jesi woody Result [facility] [address] [place] [address], [place] [phone] from Last 3 Months or Most Recently Relevant to Health Maintenance Insurance [place] [address] Advance Directives * Full Code - Confirmed (Latest Code Status on File) Date Activated Date Inactivated Comments 12/13/2024 11:50 PM 12/14/2024 4:11 AM This code sta tus was ascertained in the following way: Code status discussion: discussion with patient To update the patient's code status, place a code status order. Do not modify or discontinue any currently active code status orders. Care Teams Well Surveying Engineer Relationship Specialty Start Date End Date Coni Griffiths MD [address] [place] [address] , [address] Physician Associ D/B/A: [facility] JAYRO Mcneil PCP - General Internal Medicine 11/07/14
--- OUTSIDE RECORDS SUMMARY | 2025-02-21 10:52 | XMS_ITS | Encounter Summary ---
Author Organization [facility] Address [address] [place] [address] Care Team Providers Care Autoglazier Name Role Phone Coni Griffiths MD Primary Care Provider Kaylee gonsalez Reason for Visit * Reason Comments E-prescribe Rx Request Encounter Details Date Type Department Care Team Description 06/25/2019 Refill OBGYN - [address] [address] Bonnie Mejia CNM E-prescribe Rx Request Social History Tobacco Use Types Packs/Day Years [...] documented as of this encounter Visit Diagnoses Diagnosis Encounter for initial prescription of contraceptive pills General counseling for prescription of oral contraceptives documented in this encounter Care Teams Autoglazier Relationship Specialty Start Date End Date Coni Griffiths MD PCP - General Internal Medicine 11/07/14 documented as of this encounter
--- OUTSIDE RECORDS SUMMARY | 2025-02-21 10:52 | XMS_ITS | Encounter Summary ---
Author Organization [facility] Address [address] [place] [address] Care Team Providers Care Supervisor Fireworks Assembly Name Role Phone Coni Griffiths MD Primary Care Provider Kaylee gonsalez Encounter Details Date Type Department Care Team Description 04/27/2023 Orders Only Medical Records [address] [place] [address] Abstract, Provider Social History Tobacco Use Types [...] Date/Time Associated Diagnosis Comments OUTSIDE LAB Routine 04/24/2023 documented in this encounter Results * OUTSIDE LAB (04/24/2023) Provider Abstract LAB documented in this encounter Visit Diagnoses Not on filedocumented in this encounter Care Teams Supervisor Fireworks Assembly Relationship Specialty Start Date End Date Coni Griffiths MD PCP - General Internal Medicine 11/07/14 documented as of this encounter
--- OUTSIDE RECORDS SUMMARY | 2025-02-21 10:52 | XMS_ITS | Encounter Summary ---
Author Organization [facility] Address [address] [place] [address] Phone Care Team Providers Care Marble Mason Name Role Phone Coni Gomez MD Primary Care Provid er Encounter Details Date Type Department Care Team (Late st Contact Info) Description 01/04/2025 Ancillary Orders [facility], [facility] [address] [place] [address] Sheela See, [facility] [address], [address] [place] [address] [email or web address] Mass of right breast, unspecified quadrant (Primary Dx); Fibroadenoma of right breast Social History Tobacco Use Types Packs/Day Years [...] EDT Appointment [facility] [place], OB [address] [place] [address] Sheela See CNM [address], [address] [address] 02/23/2025 12:00 PM EDT Office Visit [facility] [address] [place] [address] Nicholas Araujo MD [address], [address] [address] 03/02/2025 Hospital Encounter [facility] [address] [place] [address] Nicholas Araujo MD [address], [address] [address] 03/02/2025 Procedure Pass [facility] Procedures [address] [place] [address] 04/10/2025 9:30 AM EDT Office Visit [facility] [address] [place] [address] Sheela Cruz MD [address], 2nd [place] [address] Scheduled Orders Name Type Priority Associated Diagnoses Orde r Schedule Mammogram Diagnostic (Bilateral) Imaging Routine Mass of right breast, unspecified quadrant Fibroadenoma of right breast 1 Occurrences starting 01/04/2025 until 01/04/2027 Scheduled Procedures Name Priority Associated Diagnoses Date/Ti me SECTION REPEAT Supervision of high risk in third trimester History of delivery documented as of this encounter Visit Diagnoses Diagnosis Mass of right breast, unspecified quadrant- Primary Fibroadenoma of right breast documented in this encounter Care Teams Marble Mason Relationship Specialty Start Date End Date Coni Gomez MD [address] [place] [address] PCP - General Internal Medicine 06/03/19 documented as of this encounter Additional Source Comments The information contained in this document represents components of the legal health record. It is not the complete legal health record.[facility]
--- OUTSIDE RECORDS SUMMARY | 2025-02-21 10:52 | XMS_ITS | Encounter Summary ---
Author Organization [facility] Address [address] [place] [address] Phone Care Team Providers Care Compounder Name Role Phone Coni Gomez MD Primary Care Provid er Encounter Details Date Type Department Care Team (Late st Contact Info) Description 01/04/2025 Ancillary Orders [facility] [address] [place] [address] Sheela See CN 22 [facility], [address] [place] [id number] [email or web address] Supervision of high risk in first trimester (Primary Dx); Carpal tunnel syndrome during ; Fibroadenoma of right breast; Chronic hypertension in ; Current in first trimester with history of during prior ; Mass of right breast, unspecified quadrant Social History Tobacco Use Types Packs/Day Years [...] EDT Appointment [facility] [place], OB [address] [place] [address] Sheela See CNM [address] [place] [address] 02/23/2025 12:00 PM EDT Office Visit [facility] [address] [place] [address] Nicholas Araujo MD [address] [place] [address] 03/02/2025 Hospital Encounter [facility] [address] [place] [address] Nicholas Araujo MD [address] [place] [address] 03/02/2025 Procedure Pass [facility] [address] [place] [address] 04/10/2025 9:30 AM EDT Office Visit [facility] [address] [place] [address] Sheela Cruz MD [address] [place] [address], [address] [place] [address] [email or web address] Scheduled Procedures Name Priority Associated Diagnoses Date/Ti me SECTION REPEAT Supervision of high risk in third trimester History of delivery documented as of this encounter Results * (ABNORMAL) BI US BREAST LIMITED (RIGHT) [...] detail with the patient immediately following theultrasound. Sheela SYKES IMG US BREAST Fin al Result documented in this encounter Visit Diagnoses Diagnosis Supervision of high risk in first trimester- Primary Carpal tunnel syndrome during Fibroadenoma of right breast Chronic hypertension in Current in first trimester with history of during prior Mass of right breast, unspecified quadrant Fibroadenoma of right breast Mass of right breast, unspecified quadrant documented in this encounter Care Teams Compounder Relationship Specialty Start Date End Date Coni Gomez MD [address] [place] [address] PCP - General Internal Medicine 06/03/19 documented as of this encounter Additional Source Comments The information contained in this document represents components of the legal health record. It is not the complete legal health record.[facility]
--- OUTSIDE RECORDS SUMMARY | 2025-02-21 10:52 | XMS_ITS | Encounter Summary ---
Author Organization [facility] Address [address] [place] [address] Phone Care Team Providers Care Software Solutions Architect Name Role Phone Coni Gomez MD Primary Care Provid er Encounter Details Date Type Department Care Team (Late st Contact Info) Description 12/28/2024 Telephone [facility] [address] [place] [address] [place] [address] Sheela See, [facility] [address] [address], [address] [place] [address] [email or web address] Social History Tobacco Use Types Packs/Day Years [...] Comme nts Yes 03/16/2025 Based on last ms nstrual period of 06/09/2024 Sex and Gender Information Value Date Recorded Sex Assigned at Female 06/03/2019 12:04 PM EST Legal Sex Female 8:58 PM EDT Gender Identity Female 06/03/2019 12:04 PM EST Sexual Orientation Straight 10/11/2020 11 :41 AM EDT documented as of this encounter Progress Notes * Sergio Balderas - 01/16/2025 9:23 AM EDT lmom * Sheela See CNM - 12/28/2024 9:54 AM EDT Josefina needs the following scheduled out. It appears she is having some u/s with [facility] as well,so we would just need to verify what is being scheduled there and add in what is needed at [facility] Scheduled already 29 week MD visit Needs 30 week CNM visit Needs BPP w/growth and CNM visit at 32 Weeks (this u/s may be scheduled at [facility]?) Needs BPP and CNM visit at 34 weeks Needs BPP w/growth and CNM visit at 36 weeks Needs BPP and CNM visit at 37 weeks Will plan to schedule out this far for now until timing of delivery is confirmed. documented in this encounter Plan of Treatment Upcoming Encounters Date Type Department Care Team (Late st Contact Info) Description 02/23/2025 11:00 AM EDT Appointment [facility] [place] [address] [place] [address] [place] [address] Sheela See CNM [address] [place] [address], [address] [address] 02/23/2025 12:00 PM EDT Office Visit [facility] [address] [place] [address] [place] [address] Nicholas Araujo MD [address] [place] [address], [address] [address] 03/02/2025 Hospital Encounter [facility] [address] [place] [address] Nicholas Araujo MD [address] [facility], [address] [address] 03/02/2025 Procedure Pass [facility] [address] [place] [address] 04/10/2025 9:30 AM EDT Office Visit [facility] General Surgical Care [address] [place] [address] Sheela Cruz MD [address] [facility], 2nd [place] [address] [facility] Scheduled Procedures Name Priority Associated Diagnoses Date/Ti me SECTION REPEAT Supervision of high risk in third trimester History of delivery documented as of this encounter Visit Diagnoses Not on filedocumented in this encounter Care Teams Software Solutions Architect Relationship Specialty Start Date End Date Coni Gomez MD [address] [place] [address] PCP - General Internal Medicine 06/03/19 documented as of this encounter Additional Source Comments The information contained in this document represents components of the legal health record. It is not the complete legal health record.[facility]
--- OUTSIDE RECORDS SUMMARY | 2025-02-21 10:52 | XMS_ITS | Encounter Summary ---
Author Organization [facility] Address [address] [place] [address] Care Team Providers Care Horticulture Superintendent Name Role Phone Coni Griffiths MD Primary Care Provider Kaylee gonsalez Encounter Details Date Type Department Care Team Description 11/30/2014 Release of Information Medical Records [address] [place] [address] Abstract, Provider Social History Tobacco Use Types Packs/Day Years Used Date Smoking Tobacco: Never Alcohol Use Standard Drinks/Week Comments [...] on filedocumented in this encounter Care Teams Horticulture Superintendent Relationship Specialty Start Date End Date Coni Griffiths MD PCP - General Internal Medicine 11/07/14 documented as of this encounter
--- OUTSIDE RECORDS SUMMARY | 2025-02-21 10:52 | XMS_ITS | Encounter Summary ---
Author Organization [facility] Address [address] [place] [address] Care Team Providers Care Sephora Product Consultant Name Role Phone Coni Griffiths MD Primary Care Provider Kaylee gonsalez Encounter Details Date Type Department Care Team Description 04/23/2023 Hospital Medical Records [address] [place] [address] Abstract, Provider Social History Tobacco Use Types [...] suspected to have Coronavirus/COVID-19? No / Unsure 04/23/2023 10:02 AM EST documented as of this encounter Plan of Treatment Not on file documented as of this encounter Visit Diagnoses Not on filedocumented in this encounter Care Teams Sephora Product Consultant Relationship Specialty Start Date End Date Coni Griffiths MD PCP - General Internal Medicine 11/07/14 documented as of this encounter
--- OUTSIDE RECORDS SUMMARY | 2025-02-21 10:52 | XMS_ITS | Encounter Summary ---
Author Organization [facility] Address [address] [place] [address] Phone Care Team Providers Care Microwave Remote Sensing Scientist Name Role Phone Coni Gomez MD Primary Care Provid er Encounter Details Date Type Department Care Team ([facility] Contact Info) Description 12/12/2024 Telephone [facility] Obstetrics - Virtual Department [address] [place] [address] Sheela See, [facility] [address] [facility] [place], [address] [address] [email or web address] Social History Tobacco Use Types Packs/Day Years [...] as of this encounter Progress Notes * Yolanda Colón CMA - 12/13/2024 7:43 AM EDT I added Height to patients encounter. BMI has now populated and should populate on each visit. Height needed to be added to the Vital Signs tab on the encounter. * Sheela See CNM - 12/12/2024 1:19 PM EDT Please adjust pt chart to ensure BMIs from each visit are populating. documented in this encounter Plan of Treatment Upcoming Encounters Date Type Department Care Team (Late st Contact Info) Description 02/23/2025 11:00 AM EDT Appointment [facility] [address] [place] [address] [place] [address] Sheela See CNM [address] [place] [address] 02/23/2025 12:00 PM EDT Office Visit [facility] [address] [place] [address] [place] [address] Nicholas Araujo MD [address] [place] [address] 03/02/2025 Hospital Encounter [facility] [address] [place] [address] Nicholas Araujo MD [address] [place] [address] 03/02/2025 Procedure Pass [facility] Procedures [address] [place] [address] 04/10/2025 9:30 AM EDT Office Visit [facility] General Surgical Care [address] [place] [address] Sheela Cruz MD [address] [facility], 2nd [place] [address] [email or web address] Scheduled Procedures Name Priority Associated Diagnoses Date/Ti me SECTION REPEAT Supervision of high risk in third trimester History of delivery documented as of this encounter Visit Diagnoses Not on filedocumented in this encounter Care Teams Microwave Remote Sensing Scientist Relationship Specialty Start Date End Date Coni Gomez MD [address] [place] [address] PCP - General Internal Medicine 06/03/19 documented as of this encounter Additional Source Comments The information contained in this document represents components of the legal health record. It is not the complete legal health record.[facility]
--- OUTSIDE RECORDS SUMMARY | 2025-02-21 10:52 | XMS_ITS | Encounter Summary ---
Author Organization [facility] Address [address] [place] [address] Care Team Providers Care Dish Machine Operator Name Role Phone Coni Griffiths MD Primary Care Provider Kaylee gonsalze Encounter Details Date Type Department Care Team Description 04/27/2023 Pt. Non Urgent Medical Question OBGYN - [address] [address] Sheela Flynn CNM [address] [place] [address] Social History Tobacco Use Types Packs/Day Years [...] AM EST documented as of this encounter Miscellaneous Notes * Telephone Encounter - Madhuri Mckeon R.N. - 04/27/2023 12:11 PM ESTFrom: Billie Guerra To: Sheela Flynn CNM Sent: 04/27/2023 12:06 PM EST Subject: Continuing Care and Update Good morning Sheela, I hope everyone is doing well at the office. I was released from [facility] on Thursday and all of mylabs were normal including 24 hour urine protein test and blood pressure was fine during my stay. They increased the nifedipine to 90 mg per day. I have been taking it at 9 am as s tarted at the hospital. They also said that I did not need to be seen by their high risk doctors. [facility] or is there somewhere you would recommend? I have been feeling pretty exhausted and have a pretty constant headache but it is attenuated somewhat with Tylenol. My blood pressures have not been higher than 160 systolic, but yesterday in the early afternoon I was relaxing on the couch with my son and fe lt very flushed, hot, weak, and my heart was racing so I took my blood pressure and it was a bit elevated. I took a warm shower, took Tylenol, and laid down and it seemed to help it went back down. Today I have also been feeling warm, nauseous, have a headache, and feel my heart racing a bit, but blood pressure has been fine. Would just like some advice on if this is just something to expect with the chronic high blood pressure? Are there any changes I should make, ie diet? Also, if you guys are unable to continue my care where should I call to establish care? Thank you so much for your help! documented in this encounter Plan of Treatment Not on file documented as of this encounter Visit Diagnoses Not on filedocumented in this encounter Care Teams Dish Machine Operator Relationship Specialty Start Date End Date Coni Griffiths MD PCP - General Internal Medicine 11/07/14 documented as of this encounter
--- OUTSIDE RECORDS SUMMARY | 2025-02-21 10:53 | XMS_ITS | Encounter Summary ---
Author Organization [facility] Address [address] [place] [address] Care Team Providers Care Mobile Equipment Operator Name Role Phone Coni Griffiths MD Primary Care Provider Kaylee gonsalez Reason for Visit * Reason Onset Date Comments Provider Call Back 07/24/2020 Encounter Details Date Type Department Care Team Description 07/24/2020 Telephone OBGYN - [address] [address] Clarence Young CNM Provider Call Back Social History Tobacco Use Types Packs/Day Years [...] Exposure Response Date Recorded In the last month, have you been in contact with someone who was confirmed or suspected to have Coronavirus / COVID-19? No / Unsure 07/23/2020 2:51 PM EST documented as of this encounter Miscellaneous Notes * Telephone Encounter - Clarence Young CNM - 07/24/2020 1:38 PM EST Returned phone call from Billie. Reviewed U/S report. Small cyst both ovaries. Pt reports pain left side persistnet dull achiness. Sometimes acute. Suggested ibuprofen. Repeat U/S 6-8 weeks. RTO if pain increases or is more uncomfortable. To ER for acute pain. * Telephone Encounter - Clarence Young CNM - 07/24/2020 10:09 AM EST Returned patient's phone call. Message left to call back. U/S report shows ovarian cysts bilaterally. Recommend repeat U/S 4-6 weeks. Ibuprofen for pain. To ER if pain increases accutely. Order placed for follow up U/S. * Telephone Encounter - Sammie Richmond RN, BSN - 07/24/2020 9:14 AM EST Pt had pelvic u/s done yesterday - there is no documented phone calls. Pt states clarence left her a voicemail * Telephone Encounter - Re Knutson - 07/24/2020 9:10 AM EST Chief Complaint/problem: Patient states she is returning call from yesterday - no open encounters. Please call How long has the patient had this problem? - Pt???s PEOPLESOFT FUNCTIONAL ANALYST provider: Clarence Young CNM Last menstrual period (LMP) or EDC (due date): N/A documented in this encounter Plan of Treatment Not on file documented as of this encounter Results * SONO PELVIS COMPLETE (10/02/2020 3:41 PM EDT) 10/02/2020 3:50 PM EDT Impressions [facility] - 10/02/2020 3:54 PM EDT Essentially normal pelvic ultrasound. Narrative [facility] - 10/02/2020 3:54 PM EDT History: Pelvic pain. Pelvic ultrasound: The pelvis was scanned transabdominally for maximum [id number], and then transvaginally for optimum delineation of the uterus and ovaries. Compared to 07/23/2020. The uterus is normal in size, configuration and echogenicity. It measures 6.4 x 3.8 x 4.7 cm. There is no appreciable myometrial or endometrial abnormality. The endometrial thickness is 7 mm maximum. No echogenic focus is seen in the right ovary as was seen on the prior ultrasound. There is a 1.7 cm normal follicle. There is a 1.6 cm cystic appearing structure with internal echoes typical for an involuting and/or hemorrhagic follicle. Right ovarian volume is 10.3 cc. Left ovarian configuration is normal. No cystic or other focal abnormalities are seen. Left ovarian volume is 1.9 cc. No abnormal adnexal masses or fluid collections are demonstrated. Procedure Note Antolin Russell MD - 10/02/2020 History: Pelvic pain. Pelvic ultrasound: The pelvis was scanned transabdominally for [id number], and then transvaginally for optimum delineation of the uterus and ovaries.Compared to 07/23/2020. The uterus is normal in size, configuration and echogenicity. It measures 6.4x 3.8 x 4.7 cm. There is no appreciable myometrial or endometrial abnormality. Theendometrial thickness is 7 mm maximum. No echogenic focus is seen in the right ovary as was seen on the priorultrasound. There is a 1.7 cm normal follicle. There is a 1.6 cm cystic appearing structure withinternal echoes typical for an involuting and/or hemorrhagic follicle. Right ovarianvolume is 10.3 cc. Left ovarian configuration is normal. No cystic or other focal abnormalitiesare seen. Left ovarian volume is 1.9 cc. No abnormal adnexal masses or fluid collectionsare demonstrated. IMPRESSION Essentially normal pelvic ultrasound. Clarence Young CNM ULTRASOUND [facility] OTHER EXTERNAL documented in this encounter Visit Diagnoses Diagnosis Pelvic pain- Primary Pelvic pain documented in this encounter Care Teams Mobile Equipment Operator Relationship Specialty Start Date End Date Coni Griffiths MD PCP - General Internal Medicine 11/07/14 documented as of this encounter
--- OUTSIDE RECORDS SUMMARY | 2025-02-21 10:53 | XMS_ITS | Encounter Summary ---
Author Organization [facility] Address [address] [place] [address] Care Team Providers Care Percussion Teacher Name Role Phone Coni Griffiths MD Primary Care Provider Kaylee gonsalez Encounter Details Date Type Department Care Team Description 02/24/2023 Release of Information Medical Records [address] [place] [address] Abstract, Provider Social History Tobacco Use Types [...] suspected to have Coronavirus/COVID-19? No / Unsure 02/20/2023 2:52 PM EDT documented as of this encounter Plan of Treatment Not on file documented as of this encounter Visit Diagnoses Not on filedocumented in this encounter Care Teams Percussion Teacher Relationship Specialty Start Date End Date Coni Griffiths MD PCP - General Internal Medicine 11/07/14 documented as of this encounter
--- OUTSIDE RECORDS SUMMARY | 2025-02-21 10:53 | XMS_ITS | Encounter Summary ---
Author Organization [facility] Address [address] [place] [address] Care Team Providers Care Director Of Teacher Education Name Role Phone Coni Griffiths MD Primary Care Provider Kaylee gonsalez Encounter Details Date Type Department Care Team Description 01/20/2023 Pt. Non Urgent Medical Question OBGYN - [address] [address] Sheela Flynn CNM [address] [place] [id number] Social History Tobacco Use Types Packs/Day Years [...] suspected to have Coronavirus/COVID-19? No / Unsure 01/09/2023 8:50 AM EDT documented as of this encounter Miscellaneous Notes * Telephone Encounter - Madhuri Mckeon R.N. - 01/20/2023 4:23 PM EDTFrom: Billie Guerra To: Sheela Flynn CNM Sent: 01/20/2023 3:41 PM EDT Subject: Intolerable Nausea Good afternoon, This question is actually for the OB nurse, but I could not find a way to message her directly. I have been taking unisom and vitamin b6 nightly as directed last time we spoke. This seemed to help a lot with the nausea to get it to a tolerable level during the day. For the past couple of days it has returned even with the unisom and vitamin b6. I can???t get out of bed, my head feels like it has a ton of pressure, and I feel dizzy and nauseous as soon as a try to even lift my head. I have a 6 year old son that I need to care for and can???t be in bed all day. Is there anything else I can try?I have not had any vomiting at all just nausea. I have been eating small meals but usually can onlymanage a small breakfast and some crackers throughout the day. Water is hard to stomach even in small sips. I do also take vinny chews and gum. The acupressure bands have not been helpful. At nighttime the nausea usually subsides to a tolerable level and I???m able to eat a decent dinner. Thank you for your time and response. documented in this encounter Plan of Treatment Not on file documented as of this encounter Visit Diagnoses Not on filedocumented in this encounter Care Teams Director Of Teacher Education Relationship Specialty Start Date End Date Coni Griffiths MD PCP - General Internal Medicine 11/07/14 documented as of this encounter
--- OUTSIDE RECORDS SUMMARY | 2025-02-21 10:53 | XMS_ITS | Encounter Summary ---
Author Organization [facility] Address [address] [place] [address] Care Team Providers Care [employer] Name Role Phone Coni Griffiths MD Primary Care Provider Kaylee gonsalez Reason for Visit * Reason Onset Date Comments 02/09/2023 Encounter Details Date Type Department Care Team Description 02/09/2023 Telephone OBGYN - [address] [address] Shannan Roca, Social History Tobacco Use Types Packs/Day Years [...] suspected to have Coronavirus/COVID-19? No / Unsure 02/05/2023 10:02 AM EDT documented as of this encounter Miscellaneous Notes * Telephone Encounter - Rosalinda Cedillo L.P.N. - 02/09/2023 11:27 AM EDT Sheela, I spoke with patient she states she just got up from bed,denies any SI at this time because she woke up not feeling to dizzy. Report's last feeling of SI was last night when she was feelingsick. Denies wanting to harm others. Report's she feels like she needed to vent in my chart messagesent (please read below). Patient was recently switched from Lexapro to Zoloft by PCP Dr. Qiu, reported at her ob nurse work up on 02/05/23 she was feeling well with transition of SSRI. Patient has tried Vitamin B6,Unisom,Bonine with little relief. She was seen in [facility] ER on 02/07/23 for lower abdominal cramping. She did not express any depressive sx or SI when seen in ER. BP was elevated 178/88 and she was told to follow up in office for BP check (this was reviewed with Dr. Roca director of conservation),ob us/renal ultrasound was normal. [facility] crisis contact information given to patient. Aftab is aware she has been depressed , but she denies expressing to him thought's of SI. Aftab is her only support system. He work's from home and is home today if patient needed him. Patient is using [facility] for pharmacy. Can you please send in an antiemetic? Also, can you please touch base with [facility] in regards to patient? She is aware if she has any further thought's of SI or want's to harm other's she is to call 911 immediately. I will scheduled patient for follow up in office. * Telephone Encounter - Rosalinda Cedillo L.P.N. - 02/09/2023 11:04 AM EDT Sheela, please see my chart message below. I have tried to call patient and this morning with no return call back as of yet. My chart message also sent to patient that she as of yet has notread. Any further recommendations? Thank you. * Telephone Encounter - Rosalinda Cedillo L.P.N. - 02/09/2023 10:29 AM EDT Images from the original note were not included. Message left for patient and Aftab (on verbal) to return call to triage. Ext [phone] or [phone] Gu[facility] Construction Helper Triage (supporting Sheela Flynn CNM) 12 hours ago (9:38 PM) I am so sad to be writing this, but I am seriously considering terminating this . I???ve been depressed and suicidal from being bed ridden for a month with nausea, headaches, and lethargy. Ihaven???t been able to be a good mother or because as soon as I do any physical activity even raising my head up from the bed I feel winded, fatigued, and as if I???m going to pass out. I have no quality of life. I can???t work out, play with my child, cook, do anything pleasurable. 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 I get up at 12 pm everyday despite going to bed at a reasonable time because I can???t drag myself out of bed and I???m dreading the onslaught of unpleasantries waiting for me. Now on top of that I have constant pelvic pain and pressure. It hurts when I urinate or defecate and all I have is Tylenol to get me through. I???m not going to live on this litany of drugs that barely makes my life tolerable. I spent 7 hours at the ER yesterday to be told everything is fine, but it???s not fine. I???m in pain and at the end of my rope. Everyday I wake up and hope either I have a miscarriage or I just don???t wake up or have a stroke or something. This is so unbearable. documented in this encounter Plan of Treatment Not on file documented as of this encounter Visit Diagnoses Not on filedocumented in this encounter Care Teams [employer] Relationship Specialty Start Date End Date Coni Griffiths MD PCP - General Internal Medicine 11/07/14 documented as of this encounter
--- OUTSIDE RECORDS SUMMARY | 2025-02-21 10:53 | XMS_ITS | Encounter Summary ---
Author Organization [facility] Address [address] [place] [address] Care Team Providers Care Accounting Assistant Name Role Phone Coni Griffiths MD Primary Care Provider Kaylee gonsalez Reason for Visit * Reason Onset Date Comments TEST RESULTS 10/03/2020 LM for pt to [place] l office back Encounter Details Date Type Department Care Team Description 10/03/2020 Telephone OBGYN - [address] [address] Jennifer Young CNM TEST RESULTS (LM for pt to call office back) Social History Tobacco Use Types Packs/Day Years [...] have Coronavirus / COVID-19? No / Unsure 10/02/2020 2:56 PM EDT documented as of this encounter Miscellaneous Notes * Telephone Encounter - Nupur Barros M.A. - 10/17/2020 11:35 AM EDT LVM to discuss results. * Telephone Encounter - Nupur Barros M.A. - 10/08/2020 11:51 AM EDT LVM to discuss results. * Telephone Encounter - Shannon Bustos - 10/03/2020 1:07 PM EDT ----- Message from eJnnifer Young CNM sent at 10/03/2020 12:57 PM EDT ----- Please let the patient know I reviewed her recent ultrasound and the results are normal findings. Please call her and ler her know the management is to be if she is still having pelvic pain to make an appointment with MD. documented in this encounter Plan of Treatment Not on file documented as of this encounter Visit Diagnoses Not on filedocumented in this encounter Care Teams Accounting Assistant Relationship Specialty Start Date End Date Coni Griffiths MD PCP - General Internal Medicine 11/07/14 documented as of this encounter
--- OUTSIDE RECORDS SUMMARY | 2025-02-21 10:53 | XMS_ITS | Encounter Summary ---
Author Organization [facility] Address [address] [place] [address] Phone Care Team Providers Care [employer]arry Plant Crusher Operator Name Role Phone Coni Gomez MD Primary Care Provid er Encounter Details Date Type Department Care Team (Late st Contact Info) Description 12/28/2024 Telephone [facility] [address] [place] [address] [place] [address] Sheela See, [facility] [address], [address] [place] [address] [email or web address] Social History Tobacco Use Types Packs/Day Years [...] Comme nts Yes 03/16/2025 Based on last nm nstrual period of 06/09/2024 Sex and Gender Information Value Date Recorded Sex Assigned at Female 06/03/2019 12:04 PM EST Legal Sex Female 8:58 PM EDT Gender Identity Female 06/03/2019 12:04 PM EST Sexual Orientation Straight 10/11/2020 11 :41 AM EDT documented as of this encounter Progress Notes * Denny Bates - 12/30/2024 8:40 AM EDT Referral sent 12/30 * Sheela See CNM - 12/28/2024 10:04 AM EDT Please facilitate referral to [facility] for therapist deyvi. Referral placed. documented in this encounter Plan of Treatment Upcoming Encounters Date Type Department Care Team (Late st Contact Info) Description 02/23/2025 11:00 AM EDT Appointment [facility] [place], OB [address] [place] [address] [place] [address] Sheela See CNM [address] [place] [address], [address] [address] 02/23/2025 12:00 PM EDT Office Visit [facility] [address] [place] [address] [place] [address] Nicholas Araujo MD [address] [place] [address], [address] [address] 03/02/2025 Hospital Encounter [facility] [address] [place] [address] Nicholas Araujo MD [address] [place] [address], [address] [address] 03/02/2025 Procedure Pass [facility] [address] [place] [address] 04/10/2025 9:30 AM EDT Office Visit [facility] [address] [place] [address] Sheela Cruz MD [address] [facility] [address], 2nd [place] [address] [email or web address] Scheduled Procedures Name Priority Associated Diagnoses Date/Ti me SECTION REPEAT Supervision of high risk in third trimester History of delivery documented as of this encounter Visit Diagnoses Not on filedocumented in this encounter Care Teams [employer] Plant Crusher Operator Relationship Specialty Start Date End Date Coni Gomez MD [address] [place] [address] PCP - General Internal Medicine 06/03/19 documented as of this encounter Additional Source Comments The information contained in this document represents components of the legal health record. It is not the complete legal health record.[facility]
== END 2025-02-21 09:57 | disposition home or self-care (01) ==
LOC: HO.HMCH 09:27
PROVIDERS: PCP Internal Medicine; Visit Provider Internal Medicine
DX: Z00.00 Encounter for general adult medical examination without abnormal findings (principal); F32.0 Major depressive disorder, single episode, mild; E66.01 Morbid (severe) obesity due to excess calories; Z68.42 Body mass index [BMI] 45.0-49.9, adult

== ENCOUNTER → 2025-02-21 09:26 | Outpatient (BNVA) | payer OTHER, SELFPAY | PROVIDERS: PCP Internal Medicine; Visit Provider Internal Medicine | DX: Z00.00 Encounter for general adult medical examination without abnormal findings (principal); E66.01 Morbid (severe) obesity due to excess calories; Z68.42 Body mass index [BMI] 45.0-49.9, adult; F33.0 Major depressive disorder, recurrent, mild | CPT/HCPCS: 96127; 99395 ==